=== PATIENT | female | born 1960 | race Caucasian/White ===

== ENCOUNTER 2016-10-07 20:02 | Emergency (ER) | payer OTHER ==
[~2016-10-07] VITALS: Ht 175.3 cm; Wt 69.0 kg
[~2016-10-07 20:02] MED LIST: ASPCH81X PO; ATOR10TA82 PO; FLM4 PO; LEVO50TA6 PO; LORA0.5T12 PO; MELO15TA4 PO; OXYC7.5T78 PO; PARO25TA PO
[2016-10-07 20:07] VITALS: TEMP 36.7; Ht 175.3 cm; Wt 69.0 kg
[2016-10-07] MEDS ORDERED: CYCL10TA6 PO (20:28)
[2016-10-07] MEDS ORDERED: TRAM-10 PO (20:28)
[2016-10-07] MEDS ORDERED: ONDANSETRON INJ 2 MG/ML 2 ML VIAL IV STA (20:37)
[2016-10-07] MEDS ORDERED: SODIUM CHLORIDE 0.9% 1000ML 1,000 ML IV STA (20:37)
[2016-10-07] MEDS ORDERED: KETOROLAC TROMETHAMINE 30 MG/ML VIAL IV STA (20:37)
[2016-10-07] MEDS ORDERED: MoRPHine SULFATE 4 MG/ML 1 ML CARP\\VIAL IV PRN (20:45)
[2016-10-07 21:10] LABS: HEMATOCRIT 42.9 % (37-47); MEAN CELL VOLUME 91.3 fL (80-100); MEAN CORPUSCULAR HEMOGLOBIN 31.9 pg (25-34); MEAN PLATELET VOLUME 11.2 fL (7.4-10.4); PLATELET COUNT 200 K/uL (130-400); WHITE BLOOD COUNT 8.37 K/uL (4.8-10.8)
[2016-10-07 21:26] LABS: URINE APPEARANCE CLEAR (CLEAR); URINE BILIRUBIN NEG (NEG); URINE COLOR DK YELLOW; URINE NITRITE NEG (NEG); URINE SPECIFIC GRAVITY 1.022 (1.000-1.030); UROBILINOGEN NEG (NEG); ZZUR CULT IF INDIC CLEAN CATCH NO
[2016-10-07 21:27] LABS: MANUAL MICROSCOPIC REQUIRED? NO; REVIEW REQ? NO
[2016-10-07 21:28] LABS: BASO % 0.4 %; BASO ABS # 0.03 K/uL (0-0.2); COMPLETE YES; EOS % 2.2 %; IG% 0.2 %; LYMPH % 39.4 %; MONO % 6.7 %; NEUT % 51.1 %
--- NOTE | 2016-10-07 21:31 | DIAGNOSTIC IMAGING REPORT ---
CHEST ONE VIEW PORTABLE HISTORY: FLANK PAIN/HEMATURIA COMPARISON: None. FINDINGS: Surgical clips within the thyroid bed. No focal lung consolidations to suggest pneumonia. No evidence for pulmonary edema. No pleural effusions. No pneumothorax. The heart is normal in size. IMPRESSION: No acute process. Electronically signed by: Albaro Ventura M.D. 10/07/2016 9:29 PM Dictated Date/Time: 10/07/2016 9:27 PM
[2016-10-07 21:37] LABS: ALT/SGPT 28 U/L (12-78); BLOOD UREA NITROGEN 20 mg/dl (7-18); BUN/CREATININE RATIO 24.4 (10-20); CALCIUM 8.5 mg/dl (8.5-10.1); CARBON DIOXIDE 27 mmol/L (21-32); CHLORIDE 106 mmol/L (98-107); GLUCOSE 98 mg/dl (70-99); POTASSIUM 3.9 mmol/L (3.5-5.1); SODIUM 142 mmol/L (136-145)
[2016-10-07 21:40] LABS: ALKALINE PHOSPHATASE 147 U/L (45-117); AST/SGOT 20 U/L (15-37)
--- NOTE | 2016-10-07 21:52 | DIAGNOSTIC IMAGING REPORT ---
ABDOMEN AND PELVIS CT WITHOUT CONTRAST CT DOSE: 993.05 mGy.cm HISTORY: Left flank pain TECHNIQUE: Multiaxial CT images of the abdomen and pelvis were performed without the use of intravenous and oral contrast according to the standard department stone protocol. COMPARISON STUDY: None. FINDINGS: Mild dependent changes seen at the lung bases. No fractures within the visualized osseous structures. Left superficial femoral artery stent. The unenhanced liver, spleen, adrenal glands, pancreas, and gallbladder are unremarkable. A 14 mm exophytic hypodense lesion within the upper pole the left kidney is incompletely characterize on this noncontrast study but favors a cyst. A 3.7 x 3.4 cm distal abdominal aortic aneurysm. The uterus and bilateral adnexa are within normal limits. There is also a 5 mm exophytic hypodense lesion within the upper pole the left kidney. No renal stones or hydronephrosis. The bladder is not well-distended but appears unremarkable. Suboptimal evaluation for bowel pathology due to the lack of intravenous and oral contrast. However, there is no definite bowel wall thickening or obstruction. Colonic diverticulosis. Normal appendix. IMPRESSION: 1. No renal stones or hydronephrosis. 2. No definite bowel wall thickening or obstruction. 3. Indeterminate left renal hypodense lesions on this noncontrast study. 4. A 3.7 x 3.4 cm distal abdominal aortic aneurysm. 5. Colonic diverticulosis. Electronically signed by: Albaro Ventura M.D. 10/07/2016 9:50 PM Dictated Date/Time: 10/07/2016 9:41 PM
[2016-10-07 22:49] VITALS: BP 133/88; PULSE 80; O2SAT 96
[2016-10-07] MEDS ORDERED: OXYC-57 PO (22:54)
--- NOTE | 2016-10-07 22:54 | EMERGENCY ROOM VISIT NOTE ---
History Report prepared by Etelvina: Wayne Booth Under the Supervision of: Dr. Emre Womack D.O. First contact with patient: 20:33 Chief Complaint: BACK PAIN Stated Complaint: BACK PAIN History of Present Illness The patient is a 55 year old female who presents to the Emergency Room with complaints of constant left sided back pain that started when she woke up this morning. She rates her pain a 10/10 in severity. This pain worsens with movement. The patient has a history of kidney stones. She denies recent falls or trauma. Source of History: patient Onset: This morning Position: back Symptom Intensity: 10/10 Timing: constant Modifying Factors (Worsening): movement Modifying Factors (Relieving): other (None) Review of Systems See HPI for pertinent positives & negatives. A total of 10 systems reviewed and were otherwise negative. Past Medical & Surgical Medical Problems: (1) AAA (abdominal aortic aneurysm) (2) delivery delivered (3) Kidney stone (4) Ovarian cyst Surgical Problems: (1) H/O unilateral oophorectomy (2) History of thyroidectomy Family History FH: diabetes mellitus FH: heart disease Kidney disease Kidney stones Social History Smoking Status: Current Every Day Smoker Alcohol Use: occasionally Housing Status: lives with family Occupation Status: unemployed Current/Historical Medications Scheduled Aspirin (Aspirin Chewable), 81 MG PO QPM Levothyroxine Sodium (Levothyroxine Sodium), 50 MCG PO QPM Lorazepam (Lorazepam), 0.5 MG PO QPM Paroxetine Hcl (Paxil Cr), 25 MG PO QPM Scheduled PRN Cyclobenzaprine Hcl (Flexeril), 10 MG PO HS PRN for Muscle Spasms Oxycodone/Acetaminophen 5MG/325MG (Percocet 5MG/325MG), 1 TAB PO Q6H PRN for Pain Tramadol (Ultram), 50 MG PO Q6 PRN for Pain Allergies Coded Allergies: Clopidogrel (Verified Allergy, Unknown, rash, 08/24/15) Physical Exam Vital Signs Date Time Temp Pulse Resp B/P Pulse Ox O2 Delivery O2 Flow Rate FiO2 10/07/16 22:49 80 16 133/88 96 Room Air 10/07/16 21:42 79 18 133/88 96 Room Air 10/07/16 20:07 36.7 88 19 112/82 98 Room Air Physical Exam CONSTITUTIONAL/VITAL SIGNS: Reviewed / noted above. GENERAL: Non-toxic in appearance. INTEGUMENTARY: Warm, dry, and [place]. HEAD: Normocephalic. EYES: without scleral icterus or trauma. ENT/OROPHARYNX: clear and moist. LYMPHADENOPATHY/NECK: Is supple without lymphadenopathy or meningismus. RESPIRATORY: Lungs clear and equal. CARDIOVASCULAR: Regular rate and rhythm. GI/ABDOMEN: Soft and nontender. No organomegaly or pulsatile mass. No rebound or guarding. Normal bowel sounds. EXTREMITIES: Warm and well perfused. BACK: Left CVA tenderness. Mild tenderness to palpation of left paraspinal musculature. Increased pain with sitting up. NEUROLOGICAL: Intact without focal deficits. PSYCHIATRIC: normal affect. MUSCULOSKELETAL: Normally developed with good muscle tone. Medical Decision & Procedures ER Provider Diagnostic Interpretation: Radiology results as stated below per my review and radiologist interpretation: CHEST ONE VIEW PORTABLE HISTORY: FLANK PAIN/HEMATURIA COMPARISON: None. FINDINGS: Surgical clips within the thyroid bed. No focal lung consolidations to suggest pneumonia. No evidence for pulmonary edema. No pleural effusions. No pneumothorax. The heart is normal in size. IMPRESSION: No acute process. Electronically signed by: Albaro Ventura M.D. 10/07/2016 9:29 PM Dictated Date/Time: 10/07/2016 9:27 PM A[address]OMEN AND PELVIS CT WITHOUT CONTRAST CT DOSE: 993.05 mGy.cm HISTORY: Left flank pain TECHNIQUE: Multiaxial CT images of the abdomen and pelvis were performed without the use of intravenous and oral contrast according to the standard department stone protocol. COMPARISON STUDY: None. FINDINGS: Mild dependent changes seen at the lung bases. No fractures within the visualized osseous structures. Left superficial femoral artery stent. The unenhanced liver, spleen, adrenal glands, pancreas, and gallbladder are unremarkable. A 14 mm exophytic hypodense lesion within the upper pole the left kidney is incompletely characterize on this noncontrast study but favors a cyst. A 3.7 x 3.4 cm distal abdominal aortic aneurysm. The uterus and bilateral adnexa are within normal limits. There is also a 5 mm exophytic hypodense lesion within the upper pole the left kidney. No renal stones or hydronephrosis. The bladder is not well-distended but appears unremarkable. Suboptimal evaluation for bowel pathology due to the lack of intravenous and oral contrast. However, there is no definite bowel wall thickening or obstruction. Colonic diverticulosis. Normal appendix. IMPRESSION: 1. No renal stones or hydronephrosis. 2. No definite bowel wall thickening or obstruction. 3. Indeterminate left renal hypodense lesions on this noncontrast study. 4. A 3.7 x 3.4 cm distal abdominal aortic aneurysm. 5. Colonic diverticulosis. Electronically signed by: Albaro Ventura M.D. 10/07/2016 9:50 PM Dictated Date/Time: 10/07/2016 9:41 PM Laboratory Results 10/07/16 21:01 Red Blood Count 4.70, Mean Corpuscular Volume 91.3, Mean Corpuscular Hemoglobin 31.9, Mean Corpuscular Hemoglobin Concent 35.0, Mean Platelet Volume 11.2, Neutrophils (%) (Auto) 51.1, Lymphocytes (%) (Auto) 39.4, Monocytes (%) (Auto) 6.7, Eosinophils (%) (Auto) 2.2, Basophils (%) (Auto) 0.4, Neutrophils # (Auto) 4.28, Lymphocytes # (Auto) 3.30, Monocytes # (Auto) 0.56, Eosinophils # (Auto) 0.18, Basophils # (Auto) 0.03 10/07/16 21:01 Test 10/07/16 20:17 10/07/16 21:01 Urine Color DK YELLOW Urine Appearance CLEAR (CLEAR) Urine pH 5.0 (4.5-7.5) Urine Specific [place] 1.022 (1.000-1.030) Urine Protein NEG (NEG) Urine Glucose (UA) NEG (NEG) Urine Ketones NEG (NEG) Urine Occult Blood NEG (NEG) Urine Nitrite NEG (NEG) Urine Bilirubin NEG (NEG) Urine Urobilinogen NEG (NEG) Urine Leukocyte Esterase NEG (NEG) Urine WBC (Auto) 1-5 /hpf (0-5) Urine RBC (Auto) 0-4 /hpf (0-4) Urine Hyaline Casts (Auto) 1-5 /lpf (0-5) Urine Epithelial Cells (Auto) 10-20 /lpf (0-5) Urine Bacteria (Auto) NEG (NEG) White Blood Count 8.37 K/uL (4.8-10.8) Red Blood Count 4.70 M/uL (4.2-5.4) Hemoglobin 15.0 g/dL (12.0-16.0) Hematocrit 42.9 % (37-47) Mean Corpuscular Volume 91.3 fL (80-100) Mean Corpuscular Hemoglobin 31.9 pg (25-34) Mean Corpuscular Hemoglobin Concent 35.0 g/dl (32-36) Platelet Count 200 K/uL (130-400) Mean Platelet Volume 11.2 fL (7.4-10.4) Neutrophils (%) (Auto) 51.1 % Lymphocytes (%) (Auto) 39.4 % Monocytes (%) (Auto) 6.7 % Eosinophils (%) (Auto) 2.2 % Basophils (%) (Auto) 0.4 % Neutrophils # (Auto) 4.28 K/uL (1.4-6.5) Lymphocytes # (Auto) 3.30 K/uL (1.2-3.4) Monocytes # (Auto) 0.56 K/uL (0.11-0.59) Eosinophils # (Auto) 0.18 K/uL (0-0.5) Basophils # (Auto) 0.03 K/uL (0-0.2) RDW Standard Deviation 43.3 fL (36.4-46.3) RDW Coefficient of Variation 13.0 % (11.5-14.5) Immature Granulocyte % (Auto) 0.2 % Immature Granulocyte # (Auto) 0.02 K/uL (0.00-0.02) Red Blood Cell Morphology Unremarkable Anion Gap 9.0 mmol/L (3-11) Est Creatinine Clear Calc Drug Dose 81.1 ml/min Estimated GFR () 94.9 Estimated GFR (Non- 81.8 BUN/Creatinine Ratio 24.4 (10-20) Calcium Level 8.5 mg/dl (8.5-10.1) Total Bilirubin 0.3 mg/dl (0.2-1) Direct Bilirubin < 0.1 mg/dl (0-0.2) Aspartate Amino Transf (AST/SGOT) 20 U/L (15-37) Alanine Aminotransferase (ALT/SGPT) 28 U/L (12-78) Alkaline Phosphatase 147 U/L (45-117) Total Protein 7.3 gm/dl (6.4-8.2) Albumin 3.8 gm/dl (3.4-5.0) Lipase 109 U/L (73-393) Laboratory results as stated above per my review. Medications Administered Medications (Trade) Dose Ordered Sig/Mary Route Start Time Stop Time Status Last Admin Dose Admin Sodium Chloride (Nss 1000ml) 1,000 ml @ 999 mls/hr Q1H1M STAT IV 10/07/16 20:37 10/07/16 21:37 DC 10/07/16 21:00 999 MLS/HR Ondansetron HCl (Zofran Inj) 4 mg NOW STAT IV 10/07/16 20:37 10/07/16 20:38 DC 10/07/16 21:01 4 MG Ketorolac Tromethamine (Toradol Inj) 30 mg NOW STAT IV 10/07/16 20:37 10/07/16 20:39 DC 10/07/16 21:01 30 MG Morphine Sulfate (MoRPHine SULFATE INJ) 4 mg Q15M PRN IV 10/07/16 20:45 10/07/16 23:31 DC 10/07/16 21:01 4 MG ED Course 2034: Previous medical records were reviewed. The patient was evaluated in room C11. A complete history and physical examination was performed. 2036: Ordered Toradol Injection 30 mg IV, Zofran Injection 4 mg IV, Sodium Chloride 1,000 ml @ 999 mls/hr IV. 2044: Ordered Morphine Sulfate 4 mg IV. 2258: On reevaluation, the patient is resting more comfortably. I discussed the results and findings with the patient. She verbalized agreement of the treatment plan. She was discharged home. Medical Decision Differential considered includes cauda equina syndrome, conus medullaris, spinal cord compression syndrome, peripheral nerve compression, fractures or subluxations, intra-abdominal pathology such as abdominal aortic aneurysm or kidney stones, muscle strain, transverse myelitis, spinal cord injury. This is a 55-year-old female who presents to the ED with a chief complaint of left-sided back pain. The patient developed symptoms earlier today. She states that she awoke with the pain. She denies any specific trauma. She does report a history of kidney stones. She has reported some increased urination. Her pain is worse with movement. Exam reveals some left CVA tenderness as well as some tenderness on palpation of the lumbar spinal musculature on the left. Abdomen soft and nontender. A CT scan of the abdomen and pelvis did not show any acute process. A chest x-ray was clear. CBC and complete metabolic panel were normal. Urine did not show infection. Lipase was negative. The patient was treated as above with IV morphine, Toradol and Zofran. She was given IV fluids. The patient was told the results of the test. She is felt to be stable for discharge. Her symptoms appear to be musculoskeletal. [place] Drug Monitoring Program Search Results: patient reviewed within database, no issues identified Impression Primary Impression: Back pain Scribe Attestation The scribe's documentation has been prepared under my direction and personally reviewed by me in its entirety. I confirm that the note above accurately reflects all work, treatment, procedures, and medical decision making performed by me. Departure Information Dispostion Home / Self-Care Prescriptions Oxycodone/Acetaminophen 5MG/325MG (PERCOCET 5MG/325MG) Tab 1 TAB PO Q6H Y for Pain, #20 TAB Prov: Emre Womack D.O. 10/07/16 Referrals Lisbet Acosta D.O. (PCP) Patient Instructions Low Back Pain Self Care, My [facility] Additional Instructions Percocet as prescribed. No driving within 6 hours of use. Do not take additional Tylenol while taking Percocet. Follow-up with your doctor for further care and evaluation in 1-2 days. Return to the emergency department for worsening or new symptoms or any concerns. You have been examined and treated today on an emergency basis only. This is not a substitute for, or an effort to provide, complete comprehensive medical care. It is impossible to recognize and treat all injuries or illnesses in a single emergency department visit. It is therefore important that you follow up closely with your doctor. Call as soon as possible for an appointment.
== END 2016-10-07 23:08 | disposition home or self-care (01) ==
LOC: C.EDB 20:03 → C.EDC 23:08
DX: M54.9 Dorsalgia, unspecified (principal); N83.209 Unspecified ovarian cyst, unspecified side; F17.200 Nicotine dependence, unspecified, uncomplicated; Z87.442 Personal history of urinary calculi; Z90.721 Acquired absence of ovaries, unilateral; Z98.890 Other specified postprocedural states; Z79.82 Long term (current) use of aspirin; Z79.899 Other long term (current) drug therapy; Z88.8 Allergy status to other drugs, medicaments and biological substances; Z83.3 Family history of diabetes mellitus; Z82.49 Family history of ischemic heart disease and other diseases of the circulatory system; Z84.1 Family history of disorders of kidney and ureter

== ENCOUNTER → 2016-12-18 | Outpatient (CLI) | payer OTHER ==
[~2016-12-18] MED LIST changes: -ATOR10TA82 PO; +CYCL10TA6 PO; -FLM4 PO; -MELO15TA4 PO; +OXYC-57 PO; -OXYC7.5T78 PO; +TRAM-10 PO
== END | disposition home or self-care (01) ==
LOC: C.PATHSPEC 11:50
PROVIDERS: ATTEND Obstetrics & Gynecology
DX: R87.612 Low grade squamous intraepithelial lesion on cytologic smear of cervix (LGSIL) (principal)

== ENCOUNTER → 2016-12-25 | Outpatient (CLI) | payer OTHER | END | disposition home or self-care (01) | LOC: C.PATHSPEC 10:40 | PROVIDERS: ATTEND Obstetrics & Gynecology | DX: R87.612 Low grade squamous intraepithelial lesion on cytologic smear of cervix (LGSIL) (principal) ==

== ENCOUNTER → 2017-04-09 | Outpatient (CLI) | payer OTHER ==
--- NOTE | 2017-04-10 13:41 | MAMMOGRAPHY REPORT ---
BILATERAL DIGITAL SCREENING MAMMOGRAM TOMOSYNTHESIS WITH CAD: 04/09/2017 CLINICAL HISTORY: Routine screening examination. TECHNIQUE: Breast tomosynthesis in addition to standard 2D mammography was performed. Current study was also evaluated with a Computer Aided Detection (CAD) system. COMPARISON: Comparison is made to exam dated: 02/13/2016 mammogram - [facility]. BREAST COMPOSITION: There are scattered areas of fibroglandular density in both breasts. FINDINGS: There is a stable benign circumscribed mass in the right upper outer quadrant. Diffuse dahlia ateral benign calcifications, and a stable biopsy marker clip in the medial left breast. No new susp icious mass, architectural distortion or cluster of microcalcifications is seen. IMPRESSION: ACR BI-RADS CATEGORY 1: NEGATIVE There is no mammographic evidence of malignancy. A 1 year screening mammogram is recommended. The pa tient will receive written notification of the results. Approximately 10% of breast cancers are not detected with mammography. A negative mammographic report should not delay biopsy if a clinically suggestive mass is present. Thea Hargrove M.D. ay/:04/09/2017 17:52:27 Triage Specialist: Kerry ROMERO(Renetta)(Jeny), [facility] letter sent: Normal 1/2 BI-RADS Code: ACR BI-RADS Category 1: Negative
== END | disposition home or self-care (01) ==
LOC: C.MAMM 07:23
PROVIDERS: ATTEND Student in an Organized Health Care Education/Training Program
DX: Z12.31 Encounter for screening mammogram for malignant neoplasm of breast (principal)

== ENCOUNTER → 2017-06-11 | Outpatient (CLI) | payer OTHER ==
[~2017-06-11] MED LIST changes: -OXYC-57 PO
== END | disposition home or self-care (01) ==
LOC: C.PAPS 14:51
PROVIDERS: ATTEND Obstetrics & Gynecology
DX: R87.612 Low grade squamous intraepithelial lesion on cytologic smear of cervix (LGSIL) (principal)

== ENCOUNTER → 2017-08-22 | Outpatient (CLI) | payer OTHER | END | disposition home or self-care (01) | LOC: C.PATHSPEC 11:49 | PROVIDERS: ATTEND Obstetrics & Gynecology | DX: R87.612 Low grade squamous intraepithelial lesion on cytologic smear of cervix (LGSIL) (principal) ==

== ENCOUNTER 2019-04-24 07:53 | Inpatient (IN) ==
--- NOTE | 2019-03-31 16:23 | PAT Medication Instructions ---
Medication Instructions Date of Service March 31, 2019 Home Medications carisoprodol 250 mg tablet 250 mg PO QPM ezetimibe 10 mg tablet 10 mg PO QPM levothyroxine 75 mcg tablet 75 mcg PO QPM lorazepam 0.5 mg tablet 0.5 mg PO HS PRN tramadol 50 mg tablet 50 mg PO DAILY PRN aspirin [Aspirin Low Dose] 81 mg PO QPM atorvastatin 40 mg PO PM metoprolol tartrate 25 mg PO QPM venlafaxine 37.5 mg PO QPM ASK your prescriber and surgeon aspirin [Aspirin Low Dose] 81 mg PO QPM Take morning of surgery With a small sip of water, OTHERWISE NOTHING TO EAT OR DRINK AFTER MIDNIGHT: lorazepam 0.5 mg tablet 0.5 mg PO HS PRN (if needed) tramadol 50 mg tablet 50 mg PO DAILY PRN (okay to take up to 4 hours prior to surgery if needed) Take evening before surgery carisoprodol 250 mg tablet 250 mg PO QPM ezetimibe 10 mg tablet 10 mg PO QPM levothyroxine 75 mcg tablet 75 mcg PO QPM lorazepam 0.5 mg tablet 0.5 mg PO HS PRN (if needed) tramadol 50 mg tablet 50 mg PO DAILY PRN (if needed) atorvastatin 40 mg PO PM metoprolol tartrate 25 mg PO QPM venlafaxine 37.5 mg PO QPM Other Notes If you have any questions please call us at [phone] or [phone] or [phone] or [phone]
--- NOTE | 2019-04-01 13:18 | Anesthesiology Consultation ---
Date of Service April 01, 2019 Assessment & Plan (1) Encounter for pre-operative examination: - ASA instructions per surgeon/prescriber Chart Review Chart Review: Pending: Refer to Additional Notes / Consult section (pending preop testing (labs, CXR)) and Patient seen in Pre Admission Testing Teaching & Discussion Pre-Anesthesia Teaching/Discussion Notes: Instructed NPO after midnight before surgery,except medications with 15 cc of water. Medication instructions provided according to the PAT guidelines. History Surgery Operation Date: 04/24/19 11:40 Proposed Procedures p Robotic Total Laparoscopic Hysterectomy - Louise Orozco MD, FACOG Height/Weight Height: 5 ft 9 in Weight: 77.7 kg Allergies Allergy/AdvReac Type Severity Reaction Status Date / Time clopidogrel Allergy Unknown rash Verified 04/01/19 10:55 Medications Home Medications Medication Instructions Recorded Confirmed Last Taken carisoprodol 250 mg tablet 250 mg PO QPM tab 01/26/19 04/01/19 Unknown ezetimibe 10 mg tablet 10 mg PO QPM tab 01/26/19 04/01/19 Unknown levothyroxine 75 mcg tablet 75 mcg PO QPM tab 01/26/19 04/01/19 Unknown lorazepam 0.5 mg tablet 0.5 mg PO HS PRN tab 01/26/19 04/01/19 Unknown tramadol 50 mg tablet 50 mg PO DAILY PRN tab 01/26/19 04/01/19 Unknown aspirin [Aspirin Low Dose] 81 mg PO QPM 03/27/19 04/01/19 Unknown atorvastatin 40 mg PO PM 03/27/19 04/01/19 Unknown metoprolol tartrate 25 mg PO QPM 03/27/19 04/01/19 Unknown venlafaxine 37.5 mg PO QPM 03/27/19 04/01/19 Unknown diphenhydramine 25 mg capsule 25 mg PO Q8H PRN 04/01/19 04/01/19 Unknown fluticasone propionate 50 1 sprays INTNAS DAILY 04/01/19 04/01/19 Unknown mcg/actuation nasal spray,suspension Past Medical History Medical History AAA (abdominal aortic aneurysm) stable at 4.6cm- monitoring by S surgery/under surveillance/no plan for surgical intervention at this time Anxiety Depression H/O varicose veins HPV in female History of arterial occlusion Left SFA stent (2013) History of kidney stones Hx of migraines Hyperlipidemia Hypothyroidism Exercise / Class Metabolic Activity II 4-5 Yardwork/Stairs/Walk up hill Past Family History Family History Grandmother (Maternal) Family history of diabetes mellitus Father Family history of diabetes mellitus Sister Family history of diabetes mellitus Other No pertinent family history Past Surgical History Surgical History History of X2 History of colonoscopy History of colposcopy with cervical biopsy 12/18/16; 08/22/17 History of ectopic X2 History of loop electrical excision procedure (LEEP) Hx of cystoscopy FOR STONE REMOVAL Hx of left breast biopsy Hx of ovarian cystectomy RIGHT Hx of partial thyroidectomy 90% REMOVAL Hx of tubal ligation Past Anesthesia History No Hx of Anesthesia Complications (except PONV x 1 episode) and No Family Hx of Anesthesia Complications History of PONV History of PONV (PONV x 1 episode) and Hx of Motion Sickness Social History Smoking Status: Current every day smoker tobacco type: cigarettes Smoking cigarettes per day: 10 cigarettes/day x 20+ years Do You Dip or Chew Tobacco: No Hx Alcohol Use: Yes alcohol intake frequency: holidays/special occasions only Hx Substance Use: No Review of Systems Patient denies chest pain, shortness of breath, dyspnea on exertion, reflux, cough, wheezing, palpitations. Physical Exam Vital Signs VITALS BP 108/72 P 56 TEMP 98.0 SP02 96%RA RESP 18 PHYSICAL Full neck and c-spine range of motion. Full TMJ range of motion. TMD 2.5 finger breaths Mallampati Score 3 Dentition: full dentures lower/upper; edentulous Lungs: clear throughout to auscultation Cardiac: regular rate and rhythm, no murmurs noted Spine: normal Carotid arteries: negative bruit Extremities: no edema Testing Electrocardiogram Date: 02/10/19 Findings: + SB @ (57) Echocardiogram Date: 08/03/15 EF 55-60%. No RWMA. Grade I DD. Mild MR. Mild RAD. Stress Test Date: 08/20/14 Type: exercise (+cardiolite) 86% MPHR. 10.4 METS. Negative stress EKG for exercise induced ischemic EKG. Normal myocardial perfusion without evidence of myocardial ischemia or scar.
--- NOTE | 2019-04-01 13:58 | XRay Report ---
XR chest Pre-admission PA/Lat CLINICAL HISTORY: 58 years-old Female presenting with preoperative assessment. TECHNIQUE: PA and lateral views of the chest were obtained. COMPARISON: 10/07/2016. FINDINGS: Atherosclerosis of the aortic arch. Cardiac silhouette normal in size. Lungs and pleural spaces clear . Osseous structures normal. Surgical clips project over the base of the neck. Upper abdomen normal. IMPRESSION: 1. No acute cardiopulmonary disease. Electronically signed by: Efrain Weber M.D. 04/01/2019 1:56 PM
[2019-04-01 15:42] LABS: Basophils # (auto) 0.06 K/uL (0-0.2); Basophils % (auto) 0.8 %; Eosinophils # (auto) 0.15 K/uL (0-0.5); Eosinophils % (auto) 1.9 %; Hemoglobin 15.4 g/dL (12.0-16.0); Immature Granulocytes # (auto) 0.02 K/uL (0.00-0.02); Immature Granulocytes % (auto) 0.3 %; Lymphocytes # (auto) 2.94 K/uL (1.2-3.4); Lymphocytes % (auto) 37.4 %; Mean Corpuscular Hemoglobin 31.6 pg (25-34); Mean Corpuscular Hgb Conc 33.5 g/dL (32-36); Mean Corpuscular Volume 94.3 fL (80-100); Mean Platelet Volume 11.4 fL (7.4-10.4); Monocytes % (auto) 6.4 %; Neutrophils % (auto) 53.2 %; Platelet Count 226 K/uL (130-400); RDW Coefficient of Variation 13.6 % (11.5-14.5); RDW Standard Deviation 46.9 fL (36.4-46.3); Red Blood Count 4.88 M/uL (4.2-5.4); White Blood Count 7.87 K/uL (4.8-10.8)
[2019-04-01 15:50] LABS: Calcium 9.4 mg/dl (8.5-10.1); Creatinine Clr Calc Pharmacy 64.5 ml/min; Est GFR (African American) 73.6; Est GFR (Non-African American) 63.5; Potassium 4.3 mmol/L (3.5-5.1)
[~2019-04-24 07:53] MED LIST changes: -ASPCH81X PO; +CEFAZOLIN 2000MG 2,000 MG/15 ML SYR IV SCH; -CYCL10TA6 PO; +LACTATED RINGER'S 1,000 ML IV SCH; -LEVO50TA6 PO; -LORA0.5T12 PO; +LR 15ML/HR IV SCH; -PARO25TA PO; -TRAM-10 PO
[2019-04-24] MEDS ORDERED: fentaNYL citrate 100 MCG/2 ML VIAL ONE ×2 (08:59→23:55)
[2019-04-24] MEDS ORDERED: MIDAZOLAM HCL 1 MG/ML 2ML VIAL ONE ×3 (08:59→23:55)
--- NOTE | 2019-04-24 09:30 | History & Physical Bridge Note ---
Date of Service April 24, 2019 History & Physical Bridge Note I have examined the patient, reviewed the History & Physical and in the interval since the performance of the History & Physical I have noted the following changes of clinical significance: no changes noted
[2019-04-24] MEDS ORDERED: PROMETHAZINE HCL 12.5 MG in SODIUM CHLORIDE 0.9% 50 ML IV PRN ×2 (09:38→16:54)
[2019-04-24] MEDS ORDERED: ATROPINE SULFATE 0.1 MG/ML 10ML SYR IV PRN (09:38)
[2019-04-24] MEDS ORDERED: LABETALOL HCL IV 5 MG/ML 20ML IV PRN (09:38)
[2019-04-24] MEDS ORDERED: ONDANSETRON INJ 2 MG/ML 2 ML VIAL IV PRN ×2 (09:38→16:54)
[2019-04-24] MEDS ORDERED: ePHEDrine sulfate 50 MG/ML AMP IV PRN (09:38)
[2019-04-24] MEDS ORDERED: FLUMAZENIL 0.1 MG/1 ML 10 ML VIAL IV PRN (09:38)
[2019-04-24] MEDS ORDERED: HYDROmorphone INJ 1 MG/ML SYRINGE IV PRN ×2 (09:38→16:04)
[2019-04-24] MEDS ORDERED: NALOXONE HCL 0.4 MG/1 ML VIAL/CARP IV PRN (09:38)
[2019-04-24] MEDS ORDERED: BUPIVACAINE 0.5 % 5 MG/1 ML MPF 30ML VIAL ONE (10:13)
[2019-04-24] MEDS ORDERED: HYDROmorphone INJ 2 MG/ML SYR/VIAL ONE (10:28)
[2019-04-24] MEDS ORDERED: GLYCOPYRROLATE 0.2 MG/ML VIAL ONE (10:28)
[2019-04-24] MEDS ORDERED: NEOSTIGMINE METHYLSULFATE 5 MG/5 ML SYR ONE (10:28)
[2019-04-24] MEDS ORDERED: ONDANSETRON INJ 2 MG/ML 2 ML VIAL ONE ×2 (10:28→14:44)
[2019-04-24] MEDS ORDERED: ePHEDrine sulfate 50 MG/ML SYR ONE (10:28)
[2019-04-24] MEDS ORDERED: LIDOCAINE HCL 2% 2 ML VIAL/AMP(20MG/ML) INFIL ONE (10:28)
[2019-04-24] MEDS ORDERED: PHENYLEPHRINE 100MCG/ML 5ML SYR ONE (10:28)
[2019-04-24] MEDS ORDERED: ROCURONIUM BROMIDE 10 MG/ML 5 ML VIAL ONE ×5 (10:28→13:40)
[2019-04-24] MEDS ORDERED: DEXAMETHASONE SOD INJ 4 MG/ML VIAL ONE (10:28)
[2019-04-24] MEDS ORDERED: PROPOFOL IV EMULSION 10 MG/ML 20 ML VIAL IV ONE (10:28)
[2019-04-24] MEDS ORDERED: ACETAMINOPHEN 1000 MG/100 ML IV IV ONE (10:35)
[2019-04-24] MEDS ORDERED: METHYLENE BLUE 0.5% 10 ML VIAL ONE (10:35)
[2019-04-24] MEDS ORDERED: TISSEEL FIBRIN SEALANT 10ML TOP ONE (13:25)
[2019-04-24] MEDS ORDERED: CEFAZOLIN 250 MG/ML 1 GM VIAL ONE (13:51)
--- NOTE | 2019-04-24 14:34 | Operative Report ---
DATE OF OPERATION: 04/24/2019 PREOPERATIVE DIAGNOSIS: Multiple intra-abdominal adhesions. POSTOPERATIVE DIAGNOSIS: Multiple intra-abdominal adhesions. PROCEDURE: Laparoscopic lysis of multiple adhesions. SURGEON: Henry Ferraro MD PORTABLE TRACK CREW CHIEF: Singh Orozco. FINDINGS: I was asked for intraoperative consultation and help with lysing multiple intraabdominal adhesions in order to facilitate a hysterectomy. The patient had thickened adhesions of the small bowel and of the omentum to the anterior abdominal wall in the midline and to the left and right of the pelvic rim. There were also dense adhesions of the sigmoid colon to the left adnexa as well as small bowel adhesions to the dome of the uterine fundus. There were also some adhesions posterior to the uterus of the fatty and lateral aspect of the rectum. TECHNIQUE: Laparoscopic access to the abdomen was obtained by Dr. Orozco and will be dictated by him. We did place 1 additional port just to the left of the midline port and this was a 12 mm port placed under direct vision. I began at the superior most aspect of the adhesions and carefully peeled them away. With division of adhesions, this was done bluntly and sharply. With division of each adhesion, I had exposed additional planes for safe dissection. Once we had the small bowel off the midline of the mid portion of the lower abdomen, it was clear that we had dissected somewhat into the preperitoneal space as well. The peritoneum was elevated and this exposed additional adhesions of small bowel which were more flimsy and taken down with relative ease. Once they were taken down, the adhesions in the pelvis became obvious. Beginning towards the patient's left side of her uterus towards the adnexa, there was a plane that was able to be established between the small bowel and the uterine fundus and then I worked from left to right, dividing adhesions to the fundus and then to the posterior aspect of the fundus of the uterus. Some of these adhesions were tight and required millimeter by millimeter transection, but the small bowel wall could be visualized at all times and I do not feel that any time it was compromised. The dissection was careful and slow until that loop of small bowel was dissected away. I then worked over towards the right adnexa and the adhesions there were more flimsy and taken down with ease. That allowed me to then elevate and place right-sided traction on the left round ligament and infundibulopelvic ligament. On the posterior aspect of the infundibulopelvic ligament, the sigmoid colon was adherent. At some areas, these were also tight thick adhesions and that dissection was again millimeter by millimeter until I could get it completely freed. That allowed me then to work towards the pelvis and elevate the junction between the cervix and the fundus. On the posterior wall, there were adhesions of the fat on the lateral aspect of the rectum towards the right side and there were also some towards the left side. The actual wall of the rectum did not appear to be adherent. I was able to establish a plane on the peritoneum and I was able to dissect the bowel and the lateral fat away such that it was completely freed down to the cervix. At this point, the uterus was completely exposed and adhesions were lysed adequately to allow for hysterectomy. The remainder of the procedure will be dictated by Dr. Orozco. I attest to the content of the Intraoperative Record and any orders documented therein. Any exception s are noted below.
--- NOTE | 2019-04-24 14:55 | Operative Report ---
PG Post Operative Report Pre & Post Diagnosis Operation Date: 04/24/19 09:20 Pre-Op Diagnosis: Intraoperative bladder injury Post-Op Diagnosis: Same Anesthesia: General anesthesia with endotracheal intubation. EBL for this portion of the case: Minimal. Drains left in place: Ramos catheter to gravity drainage. Findings: Pinpoint vesicotomy at the dome closed in 2 layers. Areas of thinning of the detrusor reinforced with a single layer. Watertight closure on int raoperative testing with greater than 150 cc of sterile irrigant. I identified the patient and participated in the time-out.: Yes Procedure Operation Date: 04/24/19 09:20 Actual Procedures: Robotic assisted laparoscopic repair of Iatrogenic intraoperative vesicotomy Brief history: Consulted intraoperatively for a recognized bladder injury at the dome over the course of a difficult dissection with significant intra-abdominal adhesions. Primary surgeon is completed their portion of the case including hysterectomy and by portion of the case is performed via the robotic consult. Sterile irrigant was placed into the bladder via the intraoperative sterile Ramos and a small vesicotomy at the dome of the bladder with some thinning of the detrusor was appreciated. This was closed in a [id number] fashion using 3-0 Vicryl on SH needle on the deep aspects of the bladder and mucosa and a 2-0 Vicryl in a Lembert style closure of the external detrusor musculature. After this was complete the bladder was retested and noted to be watertight. However, several other areas of detrusor thinning were appreciated consistent with the patient's difficult intraoperative dissection. These were reinforced with closure of the external detrusor musculature and, on the intra-abdominal portion, the serosa of the detrusor using 2-0 Vicryl suture in a running fashion. After this was complete the bladder was retested and excellent appearance of the detrusor musculature with no areas of thinning or bulging was appreciated. Bladder was drained and catheter was placed to gravity drainage. Seen that the only true intravesical injury was pinpoint on complete inspection of the bladder both posterior and anterior a CHRISTOPHER drain was not felt to be necessary in the postoperative period. Case was returned to the primary surgeon at this point. Follow-up CARE: We will arrange for an outpatient cystogram and trial of void in 7 to 10 days. Patient be discharged home with Ramos catheter in place and leg bag training. Family not present physically in the waiting room but findings and events have been discussed by primary surgeon with family. Will see the patient tomorrow morning to review the intraoperative findings. Surgeon Flo Mendoza MD Well Drill Operator Helper Cable Tool present in case for passage of instruments, retraction of tissues, suction, irrigation of bladder and general patient safety. Well Drill Operator Helper Cable Tool Dr. Cassia Orozco. Estimated Blood Loss 50 Findings Consistent with Post-Op Diagnosis Specimens None for this portion of the case Description of Procedure Robot-assisted laparoscopic repair of iatrogenic intraoperative vesicotomy. I attest to the content of the Intraoperative Record and any orders documented therein. Any exceptions are noted below.
[2019-04-24] MEDS ORDERED: HYDROmorphone INJ 1 MG/ML SYRINGE ONE (15:16)
--- NOTE | 2019-04-24 15:21 | Operative Report ---
PG Post Operative Report Pre & Post Diagnosis Operation Date: 04/24/19 09:20 Pre-Op Diagnosis: High Grade Squamous Intraepithelial Lesion Post-Op Diagnosis: High Grade Squamous Intraepithelial Lesion I identified the patient and participated in the time-out.: Yes Procedure Operation Date: 04/24/19 09:20 Actual Procedures p Robotic Total Laparoscopic Hysterectomy, Left Salpingectomy, Extensive Lysis of Adhesions, Cystoscopy, Robotic laparoscopic assisted repair of Iatrogenic vesicotomy - Louise Orozco MD, FACOG Surgeon Louise Orozco MD, FACOG Site Supervisor Dr. Cassia Orozco. Estimated Blood Loss 50 Findings Consistent with Post-Op Diagnosis Specimens uterus, cervix Description of Procedure Brief clinical note discussed with the patient she has had multiple laparotomies in the known history of adhesions we discussed that we were trying to do this laparoscopically but we discussed increased risks including possible conversion to laparotomy and increased risks of internal organ injury if there was significant adhesions Patient was taken back to the operating room given preoperative antibiotics bladder drained with a Ramos catheter we attempted to place a V care manipulating device however her cervix was so stenotic and deformed from previous procedures I was unable to do this. Instead we perform laparoscopy first this was done first by changing gloves making a supraumbilical umbilical incision and using Duvall cutdown technique we entered the abdomen bluntly and blunt-tipped Duvall trocar then placed into the peritoneal cavity Findings massive adhesions of the anterior abdominal wall and small bowel to the anterior abdomen bladder and uterus visualization of the uterus was very difficult until approximately our 2 of the case. 2 laparoscopic incisions made on the right side of the patient and 2 on the left to allow port placement I did contact Dr. Ferraro from general surgery for assistance with adhesions due to the dense nature of these and also the bowel approximately and we worked together there was use of harmonic scalpel and Dr. Ferraro carefully lysed adhesions he has a separate operative note for this. The adhesions also were densely against the back wall of the uterus and the left and right pelvic sidewalls. Once the adhesions were fully dissected away we did notice that there was some blood in the Ramos catheter bag because of this I elected to perform cystoscopy . At this stage we called urology I discussed the case they decided that it would be best since the uterus was now visualize if I completed hysterectomy and afterwards they would fix the bladder. At this stage I was unable to use a V care we had tried but I could not place it into the uterine cavity so we used the sponge on a stick to identify the anterior vaginal fornix at this stage we identified the utero-ovarian blood supply in the left side she was to keep her left ovary which appeared normal coagulated this blood supply with the bipolar [place] using this robotically at this stage. And then cut this with monopolar cristina per same process with the round ligament uterine vessels were then skeletonized I was able to develop the bladder flap away sharply. Identify the uterine vessels on the left side these were coagulated then cut staying medial to the uterus. The exact same process was continued on the right side once I have fully dissected the bladder away made an anterior colpotomy identifying the sponge and the continuing the colpotomy to ensure all cervix removed. Uterus was then pulled through the vagina and removed and a sponge and a glove was placed for pneumoperitoneum. We did an instrument exchange arm #1 became the Carlos needle van driver helper arm #2 became the [employer] grasper 2 oh 90-day V lock suture was then placed the excess report cuff was closed from left to right with at least 1 cm full-thickness bites of vaginal tissue was somewhat thin but we try to ensure the best possible closure suture was cut so there was no tail needle removed for the excess report glove and a sponge removed and seal was airtight hemostasis was excellent. Dr. Mendoza from urology then repaired the bladder cystotomy operative note provided by him After generous irrigation and suction hemostasis was excellent I did probe placed to seal on the pedicles for hemostasis. Gas allowed to escape robotic instruments removed robot undocked incisions injected with 0.5% Marcaine fascia closed carefully with 0 Vicryl in the umbilical incision and left upper quadrant incision 4 oh septic or Monocryl closures and Dermabond applied. Urine was draining at the end of the procedure and there was no vaginal bleeding noted procedure sponge and instrument counts were correct Note this case was incredibly complex with the density and amount of adhesions and distortion of her cervix the entire case part took approximately 5 hours note also at our 4 we gave a second dose of antibiotics Ancef 2 g I attest to the content of the Intraoperative Record and any orders documented therein. Any exceptions are noted below.
--- NOTE | 2019-04-24 15:37 | Gynecologic Progress Note ---
Date of Service Note, I did speak directly with the patient immediately after surgery and explained the cystotomy and how it was fixed and would be managed. April 24, 2019 Results & Data Vital Signs (Past 12 Hours) Vital Signs Temp Pulse Pulse Resp BP Pulse Ox 04/24/19 15:25 98.2 F 67 19 133/76 96 04/24/19 15:15 98.2 F 67 19 123/73 98 04/24/19 15:06 98.2 F 73 16 114/70 100 04/24/19 08:43 97.7 F 64 18 121/87 64 L PG Care Time/CCT Total # of Minutes Spent Total Time Spent with Patient: Total time spent is greater than 50% in coordination of care (as documented) at patient's floor/unit and/or counseling patient:
[2019-04-24] MEDS ORDERED: KETOROLAC 30 MG/ML VIAL IV PRN ×2 (16:02→16:54)
[2019-04-24] MEDS ORDERED: KETOROLAC 30 MG/ML VIAL ONE (16:05)
--- NOTE | 2019-04-24 16:27 | Anesthesiology Progress Note ---
Date of Service April 24, 2019 Anesthesia Post Procedure Vital Signs Vital Signs: Temp Pulse Pulse Resp BP Pulse Ox 04/24/19 16:05 36.6 C 72 16 99/64 L 92 04/24/19 15:55 36.8 C 72 18 94/64 L 93 04/24/19 15:45 36.8 C 78 13 98/71 L 99 04/24/19 15:35 36.8 C 74 12 129/67 92 04/24/19 15:25 36.8 C 67 19 133/76 96 04/24/19 15:15 36.8 C 67 19 123/73 98 04/24/19 15:06 36.8 C 73 16 114/70 100 04/24/19 08:43 36.5 C 64 18 121/87 64 L Pain Intensity Abdomen: Pain Intensity: 5 Transfer of Care Handoff Completed per policy Notes Mental Status: alert / awake / arousable Patient Amnestic to Procedure: Yes Nausea / Vomiting: adequately controlled Pain: adequately controlled Airway Patency, RR, SpO2: stable & adequate BP & HR: stable & adequate Hydration State: stable & adequate Anesthetic Complications: no major complications apparent
[2019-04-24] MEDS ORDERED: SIMETHICONE 80 MG CHEW PO PRN (16:54)
[2019-04-24] MEDS ORDERED: IBUPROFEN 600 MG TAB PO PRN (16:54)
[2019-04-24] MEDS ORDERED: ZOLPIDEM TARTRATE 5 MG TAB PO PRN (16:54)
[2019-04-24] MEDS ORDERED: MAGNESIUM HYDROXIDE SUSP 30 ML UDC PO PRN (16:54)
[2019-04-24] MEDS ORDERED: LORazepam 0.5 MG TAB PO PRN (16:54)
[2019-04-24] MEDS ORDERED: MEPERIDINE HCL 50 MG/ML CARP IV PRN (16:54)
[2019-04-24] MEDS ORDERED: BISACODYL 10 MG SUPP PR PRN (16:54)
[2019-04-24] MEDS ORDERED: OXYCODONE/ACETAMINOPHEN 5mg/325mg TAB PO PRN ×2 (16:54)
[2019-04-24] MEDS ORDERED: ACETAMINOPHEN 325 MG TAB PO PRN (16:54)
[2019-04-24] MEDS ORDERED: PROMETHAZINE HCL 25 MG in SODIUM CHLORIDE 0.9% 50 ML IV PRN (16:54)
[2019-04-24] MEDS: LACTATED RINGER'S 1,000 ML IV SCH (17:04)
[2019-04-24 20:09] LABS: Hematocrit (blood only) 44.3 % (37-47); Hemoglobin 14.6 g/dL (12.0-16.0)
--- NOTE | 2019-04-24 20:15 | Gynecologic Progress Note ---
Date of Service April 24, 2019 Assessment & Plan (1) Chest pain: -Physical examination fairly unremarkable -Stable O2 saturation on 2 L -Patient is worried that this could be lead generation representative of a cardiac event. -Patient has had multiple medical problems in the past -Discussed the case with Dr. Pooja Glass, [facility] [place] -She requests that I order a stat EKG and troponin -Dr. Glass will see the patient in consultation. Subjective The patient is a 58-year-old postmenopausal female status post total laparoscopic hysterectomy with intraoperative cystotomy incision and repair, with extensive adhesio lysis lasting 5 hours. The patient is complaining of right anterior chest pain. She states that the pain comes and goes up. When the pain is at its worst it is a 10 out of 10. Patient denies any shortness of breath. She denies any nausea or vomiting. Physical Exam Constitutional: WD/WN, vitals as above Respiratory: Auscultation: lungs clear to auscultation bilaterally Cardiovascular: RRR, no murmur, no edema Extremities: no calf tenderness Results & Data Vital Signs (Past 12 Hours) Vital Signs Temp Pulse Pulse Resp BP Pulse Ox 04/24/19 18:30 97.9 F 90 17 97/71 L 94 04/24/19 17:30 97.7 F 67 18 96/55 L 93 04/24/19 17:10 97.3 F L 75 18 109/69 95 04/24/19 16:40 97.9 F 99 H 18 113/69 95 04/24/19 16:25 97.9 F 80 15 123/69 96 04/24/19 16:15 97.9 F 76 11 L 123/75 94 04/24/19 16:05 97.9 F 72 16 99/64 L 92 04/24/19 15:55 98.2 F 72 18 94/64 L 93 04/24/19 15:45 98.2 F 78 13 98/71 L 99 04/24/19 15:35 98.2 F 74 12 129/67 92 04/24/19 15:25 98.2 F 67 19 133/76 96 04/24/19 15:15 98.2 F 67 19 123/73 98 04/24/19 15:06 98.2 F 73 16 114/70 100 04/24/19 08:43 97.7 F 64 18 121/87 64 L PG Care Time/CCT Total # of Minutes Spent Total Time Spent with Patient: Total time spent is greater than 50% in coordination of care (as documented) at patient's floor/unit and/or counseling patient:
[2019-04-24] MEDS ORDERED: METOPROLOL TARTRATE 25 MG TAB PO SCH (21:00)
[2019-04-24 21:20] LABS: Albumin Level 3.4 gm/dl (3.4-5.0); Calcium 8.3 mg/dl (8.5-10.1); Est GFR (African American) 66.1; Magnesium 1.9 mg/dl (1.8-2.4); Partial Thromboplastin Ratio 0.9; Partial Thromboplastin Time 25.6 Seconds (21.0-31.0); Potassium 4.5 mmol/L (3.5-5.1)
[2019-04-24 21:23] LABS: Bilirubin,Total 0.3 mg/dl (0.2-1); Globulin 3.3 gm/dl (2.5-4.0); Total Protein 6.7 gm/dl (6.4-8.2)
[2019-04-24] MEDS ORDERED: ASPIRIN 81 MG CHEW PO STA (21:42)
[2019-04-24] MEDS ORDERED: HEPARIN SODIUM/DEXTROSE 25,000 UNITS/500 ML BAG IV SCH (21:45)
[2019-04-24] MEDS ORDERED: SODIUM CHLORIDE 0.9% 1000ML 1,000 ML IV SCH (21:45)
[2019-04-24] MEDS ORDERED: NITROGLYCERIN SL 0.4 MG/TAB TAB ONE (21:47)
--- NOTE | 2019-04-24 22:07 | Hospitalist Consultation ---
Date of Consultation April 24, 2019 Assessment & Plan (1) STEMI (ST elevation myocardial infarction): This is a 58-year-old female with a PMH of AAA, PVD s/p left SFA stenting in 2013, tobacco use disorder, dyslipidemia and other medical problems listed below who is POD#0 s/p robotic total laparoscopic hysterectomy, left salpingectomy, extensive lysis of adhesions by Dr. Orozco who developed postoperative chest pain and was found to have an inferior wall STEMI. -Post op shoulder pain migrated to central 10/10 chest pain with associated nausea -Patient with significant family history of premature CAD, lifelong smoker -EKG revealed acute ST elevations in inferior leads. Initial troponin elevated at 2.8. CXR without acute abnormalities -Discussed with Dr. Trejo and CODE HEART ALERT was called -Patient transferred to ICU and discussed with turkey roll maker ALTAF (2) S/P hysterectomy with oophorectomy: POD#0 s/p robotic total laparoscopic hysterectomy, left salpingectomy, extensive lysis of adhesions by Dr. Orozco -Mgmt per obgyn (3) AAA (abdominal aortic aneurysm): Follows with Dr. Acosta for 4 cm AAA -diameter increased from 3.5 cm one year ago -Abdominal aortic duplex report 12/2018: There is evidence of a 4.0 centimeter abdominal aortic aneurysm. Color Doppler imaging demonstrates flow consistent with a patent lumen at and distal to the aortic aneurysm. (4) PVD (peripheral vascular disease): Peripheral vascular disease with history of left SFA stenting 05/2014 with angioplasty for restenosis in 2014 while living in [place], [place] Code status: FULL PCP: Misha Acosta Patient seen in collaboration with Dr. Trotter. Please see addendum. Supervising Physician Co-Signing Physician Notes I saw this patient with the physician reading assistant, I participated in the history, physical, review of systems, and physical exam. I reviewed the medications with the patient and the physician reading assistant and helped reconcile the medications. I helped take a detailed family and social history as well. I formulated the assessment and plan personally with the physician reading assistant and went over it with the patient. +acute inf/lat STEMI-Heart alert iniyiated, 1 hour of cc time ROS-No Headache, No Visual Changes, No Nausea, No Vomiting, No Fever, No Chills, No Neck Pain or Stiffness, +10/10 Chest Pain Across Anterior Chest, No Palpitations, No SOB, No MILAN, No Cough, No Sputum, No Wheezing, No Abdominal Pain, No Diarrhea, No Hematemesis, No Hemoptysis, No Unexpected Weight Loss, No Flank pain, No Melena, No Hematochezia, No Frequency, No Urgency, No Burning, No Hematuria, No Rashes, No Diaphoresis. Appetite is Normal Physical Exam Gen-AAO x 3, NAD, Afebrile Head-NCAT, EOMI, PERRLA, Anicteric Sclera, No Posterior Pharyngeal Erythema Neck-Supple, No JVD, No Thyromegaly, No Masses, No LAD, No Bruits Lungs-Clear to Auscultation Bilaterally, No Rales, No Rhonchi, No Wheezing, No Crepitus Chest-No S4, +S1, +S2, No S3, No Murmurs, No Rubs, No Gallops, No Ectopy Abdomen-Soft, Bowel Sounds Present, Non Tender, Non Distended, No Hepatomegaly, No Splenomegaly, No Palpable Masses, No Rebound, No Rigidity, No Guarding Musculoskeletal-Full Range of Motion Bilaterally, No CVAT Extremities-No Cyanosis, No Clubbing, No Edema Nuero-Cranial Nerves II-XII grossly intact, Motor WNL, DTRs WNL, Strength WNL, Non Focal Psych-Normal Mood History of Present Illness Reason for Consultation: Chest pain Attending Physician: Louise Orozco MD, FACOG History of Present Illness This is a 58-year-old female with a PMH of AAA, PVD s/p left SFA stenting in 2013, tobacco use disorder, dyslipidemia and other medical problems listed below who is POD#0 s/p robotic total laparoscopic hysterectomy, left salpingectomy, extensive lysis of adhesions by Dr. Orozco who developed postoperative chest pain. Following procedure, patient expressed that she had right shoulder pain that was attributed to the surgery. Was later evaluated by CONTROL OFFICER MANAGER when chest pain moved from right side of chest to center. Describes pain as 10 out of 10 heaviness with some radiation to left shoulder. Associated with nausea but denies diaphoresis, shortness of breath or vomiting. Patient states she also had some chest pain yesterday after exercise that resolved with rest. Denies any personal history of CAD but significant family history of premature CAD with Mom having IN in 50s and brother in his 30s. Follows with Dr. Acosta for 4 cm AAA -diameter increased from 3.5 cm one year ago. Significant smoking history since age 13. Has cut down to half a pack per day. Vital signs stable. Dr. Hooper evaluated patient for chest pain this evening and discussed with medicine service, who suggested stat troponin and EKG. EKG revealed acute ST elevations in inferior leads. Initial troponin elevated at 2.8. Discussed with Dr. Trejo and initiated heart alert. Currently, patient still experiencing, 10 chest pain. Some incisional discomfort on abdomen. Saturating at 98% on 2 L nasal cannula. Denies any lightheadedness, visual changes, near syncope, palpitations, shortness of breath or vomiting. Urinary catheter in place. Allergies Allergy/AdvReac Type Severity Reaction Status Date / Time clopidogrel Allergy Intermediate rash Verified 04/24/19 08:36 Home Medications Home Medications Medication Instructions Recorded Confirmed Type ezetimibe 10 mg tablet 10 mg PO QPM tab 01/26/19 04/24/19 History levothyroxine 75 mcg tablet 75 mcg PO QPM tab 01/26/19 04/24/19 History lorazepam 0.5 mg tablet 0.5 mg PO HS PRN tab 01/26/19 04/24/19 History aspirin [Aspirin Low Dose] 81 mg PO QPM 03/27/19 04/24/19 History atorvastatin 40 mg PO PM 03/27/19 04/24/19 History metoprolol tartrate 25 mg PO QPM 03/27/19 04/24/19 History venlafaxine 37.5 mg PO QPM 03/27/19 04/24/19 History diphenhydramine 25 mg capsule 25 mg PO Q8H PRN 04/01/19 04/24/19 History fluticasone propionate 50 1 sprays INTNAS DAILY 04/01/19 04/24/19 History mcg/actuation nasal spray,suspension oxycodone-acetaminophen 5 mg-325 1 tab PO TID PRN #10 tab 04/01/19 04/24/19 Rx mg tablet carisoprodol [Soma] 350 mg PO QID 04/24/19 04/24/19 History Patient History Medical History AAA (abdominal aortic aneurysm) (Chronic) stable at 4.6cm- monitoring by [facility] surgery/under surveillance/no plan for surgical intervention at this time AAA (abdominal aortic aneurysm) without rupture (Chronic) Anxiety (Chronic) Depression (Chronic) H/O varicose veins (Chronic) 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) History of arterial occlusion (Chronic) Left SFA stent (2014) History of kidney stones (Chronic) Hyperlipidemia (Chronic) Hypothyroidism (Chronic) Surgical History History of (Chronic) X2 History of ectopic (Chronic) X2 Hx of cystoscopy (Chronic) FOR STONE REMOVAL Hx of left breast biopsy (Chronic) Hx of ovarian cystectomy (Chronic) RIGHT Hx of partial thyroidectomy (Chronic) 90% REMOVAL Hx of tubal ligation (Chronic) History of colposcopy with cervical biopsy (Chronic) 12/18/16; 08/22/17 History of loop electrical excision procedure (LEEP) (Chronic) Family History Grandmother (Maternal) Family history of diabetes mellitus Father Family history of diabetes mellitus Sister Family history of diabetes mellitus Mother Myocardial infarction Brother Myocardial infarction Social History Preferred Language: Belarusian Communication Ability: Effective Beliefs That Will Affect Care: None Current Living Situation: Alone Feels Safe at Home: Yes Smoking Status: Current every day smoker Tobacco Type: cigarettes ; Age Started Using Tobacco: 13 ; packs per day: 0.5 ; Cigarettes Per Day: 10 cigarettes/day x 20+ years ; Do You Dip or Chew Tobacco: No ; Second Hand Exposure: No ; Hx Alcohol Use: Yes Hx Substance Use: No Review of Systems Review of Systems: At least ten systems reviewed and negative except as noted in the HPI. Physical Exam Physical Exam: General Appearance: WD/WN, vitals as above, NAD, sitting up in bed, conversing easily, + anxious Head: normocephalic, atraumatic Eyes: normal inspection, PERRL, conjunctivae normal, anicteric sclerae ENT: external ear and nose normal, oropharynx normal Neck: trachea midline, no thyromegaly normal visual inspection Respiratory: normal respiratory effort, lungs clear to auscultation, no wheeze, rales, rhonchi. Normal insp/exp effort, no accessory muscle use Cardiovascular: regular rate, rhythm, no murmur, normal peripheral pulses. Vessels: no JVD or carotid bruit Chest: normal inspection of chest, + chest wall TTP Abdomen/GI: + Multiple laparoscopic incisions clean, dry. Normal bowel sounds, soft, nontender, no hepatosplenomegaly Extremities/Musculoskelatal: no cyanosis or clubbing, extremities motor strength 5/5 Neurologic: PERRL, EOMI, accommodation nl, no face palsy, no dysarthria CN's II-XI intact bilaterally and moves all extremities Psychiatric: A+Ox3, + anxious Skin: no rashes, pale, warm/dry Results & Data Vital Signs (Past 12 Hours) Vital Signs Temp Pulse Resp BP Pulse Ox 04/24/19 19:30 36.5 C 87 20 112/80 98 04/24/19 18:30 36.6 C 90 17 97/71 L 94 04/24/19 17:30 36.5 C 67 18 96/55 L 93 04/24/19 17:10 36.3 C L 75 18 109/69 95 04/24/19 16:40 36.6 C 99 H 18 113/69 95 04/24/19 16:25 36.6 C 80 15 123/69 96 04/24/19 16:15 36.6 C 76 11 L 123/75 94 04/24/19 16:05 36.6 C 72 16 99/64 L 92 04/24/19 15:55 36.8 C 72 18 94/64 L 93 04/24/19 15:45 36.8 C 78 13 98/71 L 99 04/24/19 15:35 36.8 C 74 12 129/67 92 04/24/19 15:25 36.8 C 67 19 133/76 96 04/24/19 15:15 36.8 C 67 19 123/73 98 04/24/19 15:06 36.8 C 73 16 114/70 100 Laboratory Results Short CBC 04/24/19 Range/Units 19:52 Hgb 14.6 (12.0-16.0) g/dL Hct 44.3 (37-47) % BMP 04/24/19 20:22 Sodium 139 Potassium 4.5 Chloride 107 Carbon Dioxide 24 BUN 17 Creatinine 1.06 Glucose 160 H Calcium 8.3 L Cardiac Enzymes 04/24/19 Range/Units 20:22 Troponin I 2.830 H* (0-0.045) ng/ml Liver Function 04/24/19 Range/Units 20:22 Total Bilirubin 0.3 (0.2-1) mg/dl AST 50 H (15-37) U/L ALT 49 (12-78) U/L Alkaline Phosphatase 110 (45-117) U/L Albumin 3.4 (3.4-5.0) gm/dl Diagnostic Findings CXR: 1. No acute cardiopulmonary disease. ECG Findings: + ST elevation (inferior leads )
[2019-04-24] MEDS ORDERED: NOREPINEPHRINE BITARTRATE 1 MG/ML 4 ML VIAL (CATH LAB USE ONLY) ONE (23:36)
[2019-04-24] MEDS ORDERED: HEPARIN (PORCINE) 1000 UNIT/ML 10 ML (CATH LAB USE ONLY) ONE (23:54)
[2019-04-24] MEDS ORDERED: NiCARDipine HCL INJ 2.5 MG/ML 10 ML AMP ONE (23:54)
[2019-04-24] MEDS ORDERED: NITROGLYCERIN/D5W 100MCG/ML 20ML SYR ONE (23:55)
--- NOTE | 2019-04-24 23:58 | Post Anesthesia Assessment ---
Date of Service April 24, 2019 Post Sedation Assessment Vital Signs Temp Pulse Pulse Resp BP Pulse Ox 04/24/19 19:30 97.7 F 87 20 112/80 98 04/24/19 18:30 97.9 F 90 17 97/71 L 94 04/24/19 17:30 97.7 F 67 18 96/55 L 93 04/24/19 17:10 97.3 F L 75 18 109/69 95 04/24/19 16:40 97.9 F 99 H 18 113/69 95 04/24/19 16:25 97.9 F 80 15 123/69 96 04/24/19 16:15 97.9 F 76 11 L 123/75 94 04/24/19 16:05 97.9 F 72 16 99/64 L 92 04/24/19 15:55 98.2 F 72 18 94/64 L 93 04/24/19 15:45 98.2 F 78 13 98/71 L 99 04/24/19 15:35 98.2 F 74 12 129/67 92 04/24/19 15:25 98.2 F 67 19 133/76 96 04/24/19 15:15 98.2 F 67 19 123/73 98 04/24/19 15:06 98.2 F 73 16 114/70 100 04/24/19 08:43 97.7 F 64 18 121/87 64 L Recovery Score Activity: Moves 4 extremities Respiration: Deep Breath/Cough Circulation: +/-20% PreAnes Value Consciousness: Fully Awake Oxygen Saturation: O2 needed for >90% Post Anesthesia Score: 9 Post Sedation Plan On clinical assessment, the patient appears to have tolerated the sedation without complications. Patient is recovering as anticipated. Patient will continue to be monitored by nursing and may be discharged when sedation discharge criteria are met per below protocol. Upon Completions of procedure and additional 15 minutes continue every 5 minute vital signs and the P.A.R. score; then discharge to a Phase I or Fast Track to Phase II per the following guidelines: * Discharge Patient to appropriate Phase II area if PAR is 8 or greater or return to pre- procedure baseline. The post - procedure orders will be as directed. * If PAR score is less than 8 or not return to pre-procedure baseline then patient will follow Phase I monitoring till PAR is reached for Phase II. The Phase I may be done in procedure room or may call to secure a Phase I area. * If naloxone or flumazenil are used for reversal, hold in Phase I for continued monitoring from when last reversal dose was given for a minimum of 60 minutes or longer pending the nurse and/or physician discretion of patient condition before discharge to Phase II. Please call the Sedation Physician to re-evaluate and complete post-note for discharge to Phase II area. Do NOT discharge from procedure sedation or Phase 1 until post- sedation evaluation note is complete by procedure /sedation MD Sedation Discharge Instructions to be given to the patient at discharge to home.
--- NOTE | 2019-04-24 23:58 | Pre Anesthesia Assessment ---
Date of Service April 24, 2019 Pre Sedation Assessment Vital Signs Temp Pulse Pulse Resp BP Pulse Ox 04/24/19 19:30 97.7 F 87 20 112/80 98 04/24/19 18:30 97.9 F 90 17 97/71 L 94 04/24/19 17:30 97.7 F 67 18 96/55 L 93 04/24/19 17:10 97.3 F L 75 18 109/69 95 04/24/19 16:40 97.9 F 99 H 18 113/69 95 04/24/19 16:25 97.9 F 80 15 123/69 96 04/24/19 16:15 97.9 F 76 11 L 123/75 94 04/24/19 16:05 97.9 F 72 16 99/64 L 92 04/24/19 15:55 98.2 F 72 18 94/64 L 93 04/24/19 15:45 98.2 F 78 13 98/71 L 99 04/24/19 15:35 98.2 F 74 12 129/67 92 04/24/19 15:25 98.2 F 67 19 133/76 96 04/24/19 15:15 98.2 F 67 19 123/73 98 04/24/19 15:06 98.2 F 73 16 114/70 100 04/24/19 08:43 97.7 F 64 18 121/87 64 L Cardiovascular RRR, no murmur, no edema Respiratory normal respiratory effort, lungs clear to auscultation Pre-Sedation Airway Assessment Smoking Status: Current every day smoker Hx Sleep Apnea: No Hx Difficult Intubation: No Short, Thick Neck: No Thyromental Distance: > or= 3.5 Finger Breadths Oral Cavity: + WNL Mallampati Class: II Procedure Planning Contraindications for Sedation: none Current Medications Reviewed: Yes Notes The planned sedation has been discussed with the patient. Informed Consent was obtained. I have identified the patient, determined the appropriateness of sedation and have assessed the patient immediately prior to the procedure. All medicine(s) and interventions are by my order.
--- NOTE | 2019-04-25 00:18 | Cardiac Catheterization ---
[facility] Data: Rigger Cardiac Status Clinical evaluation leading to the procedure CAD Presenation: STEMI Anginal Classification: CCS IV Heart Failure: No Cardiogenic Shock within 24 Hours: No Cardiac Arrest within 24 Hours: No Imaging Studies Past 6 Months: No Stress Studies Past 6 Months: No Diagnostic Physicians Name: Gabe Win MD Status: Emergency Closure Device Percutaneous Entry Location: Radial Closure Device: Radial Band Recommendations: PCI without planned CABG PCI Indication: Immediate PCI for STEMI First Noted: First EKG Reason For Delay in PCI:: Difficult/delayed EKG interpretation Lesion Segment Name: distal RCA Culprit Artery: Yes Stenosis Prior to Rx (%): 100 Chronic Total Occlusion: No FFR: No Pre-Procedure ERIKA Flow: 0 Previously Treated Lesion: No Lesion Complexity: High/C Lesion Length (mm): 25 Thrombus Present: Yes Bifurcation Lesion: No Guidewire Across Lesion: Stenosis Post-Procedure (%): 0 Post-Procedure ERIKA Flow: 3 Devices(s) Deployed: Yes Yes Intraprocedure Events Significant Disection: No Perforation: No Cardiac Cath Procedure Full Procedure Date April 24, 2019 Pre-Procedure Diagnosis Pre-Procedure Diagnosis: STEMI AUC Score AUC Score: 9 Post-Procedure Diagnosis Post-Procedure Diagnosis: Severe CAD, Successful PCI and Elevated Intracardiac Pressures Procedure(s) Performed Procedure(s) Performed: Coronary Angiography, Left Heart Cath and Drug Eluting Stent Tonsorial Artist Gabe Win MD Channel Supervisor(s) Hesham Estimated Blood Loss Estimated Blood Loss: 15 Medication(s) Medication(s): Fentanyl, Heparin, Lidocaine 1%, Nicardipine, Nitroglycerin and Versed Medication(s): Ticagrelor 180mg Summary of Findings Indication: STEMI/Heart Alert Patient is a 58-year-old woman with a history of lower extremity peripheral arterial disease post prior SFA stenting, mild AAA, dyslipidemia, prior tobacco abuse who underwent extended laparoscopic total hysterectomy, bladder repair earlier today and later developed acute onset chest pain with new inferior ST elevations and elevated troponin. Access: 6 Fr right radial artery Catheters: JORGE Mccullough-1 guide, guide liner Findings: LM -moderate caliber, 20% distal disease LAD -moderate caliber, mid segment luminal irregularities, 30% late mid disease after gives off large second diagonal. Gives of faint collaterals to PDA. Circumflex -moderate caliber vessel, gives off high, moderate caliber first OM with 50 to 60% proximal stenosis. RCA -large caliber vessel, multiple sequential 40 to 50% mid RCA lesions, earlydistal RCA 100% acute occlusion with thrombus. LVEDP -23 -- PCI -- Antithrombotic therapy: Heparin (8000 units), ticagrelor 180 mg Procedure: RCA cannulated with AR-1 guide [place] 50 wire passed across lesion into PDA Distal RCA lesion predilated with 2.5 compliant balloon Dilated lesion stented with 3.0 x 18 mm integrity bare-metal stent With some difficulty stent post-dilated with 3.0 noncompliant balloon After stent postdilated, latemid to distal area just proximal to stent with worsened stenosis and ERIKA I distal flow. Mid to distal segment dilated with 2.5 balloon With the aid of a guide liner a second bare-metal stent was placed from mid to distal segment of RCA (3.0 x 18 mm integrity). IC vasodilators administered for spasm Post procedure ERIKA 3 flow, stent well expanded with minimal residual stenosis and no apparent cardiac complications. ST elevations resolved. Patient chest pain-free. Arterial Closure: TR band Summary: 1. Inferior STEMI/acute 100% distal RCA occlusion 2. Moderate single-vessel non-culprit coronary artery disease -50 to 60% focal proximal stenosis in high OM1 3. Elevated intracardiac filling pressure 4. Successful PCI of mid to distal RCA with 2 overlapping bare-metal stents (3.0 x 18, 3.0 x 18 integrity). Recommendations: Admit to ICU for continued monitoring Loaded with ticagrelor 180 mg in orthodontic laboratory technician with prior Plavix allergy. Continue dual-antiplatelet therapy likely for 1 year. Ticagrelor can be discontinued at 1 month if needed. Trend troponins until peak, Check Echo in a.m. Uptitrate beta-marcello, start TYLER as BP allows High-dose statin Consult cardiac Rehab Patient follows with Dr. Acosta of [facility] and his team will resume care in AM. Hemodynamics Rest Ao:: 104/60/73 Final Ao: 94/53/72 LV: 92/23 Recommendations Recommendations: PCI without planned CABG Specimens Specimens: None Radiation Exposure (mGy) 4341 Contrast (mls) 215 Fluids (cc crystalloids) Fluids (cc crystalloids): 600 Drains Drains: none Anesthesia moderate Procedural Complication(s) None Disposition ICU I attest to the content of the Intraoperative Record and any orders documented therein. Any exceptions are noted below.
[2019-04-25] MEDS ORDERED: NURSING DECISION MEDICATION ONE (00:19)
[2019-04-25] MEDS ORDERED: TICAGRELOR 90 MG TAB PO ONE ×2 (00:23→00:30)
[2019-04-25] MEDS ORDERED: SODIUM CHLORIDE 0.9% 500 ML IV SCH (00:30)
--- NOTE | 2019-04-25 00:39 | Critical Care Consultation ---
Date of Consultation April 25, 2019 Assessment & Plan (1) STEMI (ST elevation myocardial infarction): Reason Critically Ill: 58-year-old female s/p total hysterectomy pain that developed chest pain found to have inferior lateral STEMI, taken to [facility] where she receive stent x2 to RCA. Neuro - [facility] ICU: Negative Cardiac - STEMIpatient experienced chest pain after surgery and was found to have ST elevation and inferior leads -s/P heart cath with stent x2 to RCA with immediately relief of chest pain -We will follow EKGs -Trend troponin -Given infusion of Brilinta as patient has allergy to Plavix, aware of risk for bleeding following surgery, will monitor closely -Continue ASA, Lipitor, Brilinta, MTP -Follow-up echo -Continuous monitor on telemetry -Follow-up cardiology recs AAAfollowing an outpatient, reportedly grew from 3.5 cm to 4 cm over the past year -We will avoid hypertension, no current issue Respiratory - Currently requiring 1 L nasal cannula, will monitor continuous pulse ox GI - HSILstatus post total hysterectomy 04/24, reportedly extensive surgery with numerous adhesions -Abdominal exam benign and surgical incisions well approximated -Surgery following, appreciate recs -Understand patient is high risk for bleeding following Brilinta infusion, will trend H&H and monitor closely Heart healthy diet RENAL/LYTES - Creatinine and electrolytes stable, will monitor with routine BMPs - Patient appeared to sustain bladder injury during surgery which was repaired, Ramos left in place and plan to leave for 7 to 10 days and follow-up outpatient. Strict I's and O's\ ENDO - No history diabetes Continue home dose Synthroid HEME - H&H stable, will monitor regularly as patient is higher risk of bleeding following surgery and Brilinta infusion ID - No suspicion for infectious process at this time LINES/IV ACCESS - Peripheral IVs DVT PROPHYLAXIS - SCDs, holding anticoagulation following surgery Thank you for allowing us to participate in the care of this patient. Please refer to my attending physician's documentation for any further recommendations. (2) AAA (abdominal aortic aneurysm): (3) S/P hysterectomy with oophorectomy: (4) PVD (peripheral vascular disease): Supervising Physician Co-Signing Physician Notes I personally evaluated the patient today. She is mentating well despite her mean arterial pressures being in the 50s. We are giving her fluid boluses she appears to be slowly responding. Her urine appears a bit concentrated but I am hopeful this will improve with more volume expansion. She had a formal echo done and I was able to take a look at the RV and IVC and both look very collapsed indicating that she probably needs more volume. I suspect that she will do okay. It seems that she was started on Zosyn overnight for intra- abdominal sepsis concerns, but I see no signs of sepsis and I discontinued this. History of Present Illness Attending Physician: Louise Orozco MD, FACOG History of Present Illness Ms. Chery is a 58-year-old female with past medical history significant for AAA, PVD status post left SFA stenting 2013, tobacco abuse, dyslipidemia who was postop day 0 yesterday afternoon for a robotic total laparoscopic hysterectomy, left salpingectomy, extensive lysis of adhesions from a high-grade squamous intraepithelial lesion, when she began to experience chest pain 10 out of 10. Troponins were elevated and EKG showed inferior lateral ST elevation in heart code was initiated. She was found to have 100% occlusion of the RCA in the [facility] and received stent x2 to the RCA. She experienced immediate relief chest pain following stent placement. She was given Brilinta as patient has allergy to Plavix. On arrival to the ICU the patient is alert and oriented and appears comfortable with complaint of chest pain now 2 out of 10 which she expresses is significa ntly better than earlier. She is currently hemodynamically stable on room air. She denies headache, syncope, dizziness, shortness of breath, palpitations, nausea or vomiting. She does report abdominal pain and tenderness over surgical site, however abdomen remains soft and nondistended with normal bowel sounds and surgical sites are well approximated. Patient to remain in ICU overnight for close observation following STEMI and heart cath with stent placements. Allergies Allergy/AdvReac Type Severity Reaction Status Date / Time clopidogrel Allergy Intermediate rash Verified 04/24/19 08:36 Home Medications Home Medications Medication Instructions Recorded Confirmed Type ezetimibe 10 mg tablet 10 mg PO QPM tab 01/26/19 04/24/19 History levothyroxine 75 mcg tablet 75 mcg PO QPM tab 01/26/19 04/24/19 History lorazepam 0.5 mg tablet 0.5 mg PO HS PRN tab 01/26/19 04/24/19 History aspirin [Aspirin Low Dose] 81 mg PO QPM 03/27/19 04/24/19 History atorvastatin 40 mg PO PM 03/27/19 04/24/19 History metoprolol tartrate 25 mg PO QPM 03/27/19 04/24/19 History venlafaxine 37.5 mg PO QPM 03/27/19 04/24/19 History diphenhydramine 25 mg capsule 25 mg PO Q8H PRN 04/01/19 04/24/19 History fluticasone propionate 50 1 sprays INTNAS DAILY 04/01/19 04/24/19 History mcg/actuation nasal spray,suspension oxycodone-acetaminophen 5 mg-325 1 tab PO TID PRN #10 tab 04/01/19 04/24/19 Rx mg tablet carisoprodol [Soma] 350 mg PO QID 04/24/19 04/24/19 History Patient History Medical History AAA (abdominal aortic aneurysm) (Chronic) stable at 4.6cm- monitoring by [facility] surgery/under surveillance/no plan for surgical intervention at this time AAA (abdominal aortic aneurysm) without rupture (Chronic) Anxiety (Chronic) Depression (Chronic) H/O varicose veins (Chronic) 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) History of arterial occlusion (Chronic) Left SFA stent (2013) History of kidney stones (Chronic) Hyperlipidemia (Chronic) Hypothyroidism (Chronic) Surgical History History of (Chronic) X2 History of ectopic (Chronic) X2 Hx of cystoscopy (Chronic) FOR STONE REMOVAL Hx of left breast biopsy (Chronic) Hx of ovarian cystectomy (Chronic) RIGHT Hx of partial thyroidectomy (Chronic) 90% REMOVAL Hx of tubal ligation (Chronic) History of colposcopy with cervical biopsy (Chronic) 12/18/16; 08/22/17 History of loop electrical excision procedure (LEEP) (Chronic) Family History Grandmother (Maternal) Family history of diabetes mellitus Father Family history of diabetes mellitus Sister Family history of diabetes mellitus Mother Myocardial infarction Brother Myocardial infarction Social History Preferred Language: Estonian Communication Ability: Effective Beliefs That Will Affect Care: None Current Living Situation: Alone Feels Safe at Home: Yes Smoking Status: Current every day smoker Tobacco Type: cigarettes ; Age Started Using Tobacco: 13 ; packs per day: 0.5 ; Cigarettes Per Day: 10 cigarettes/day x 20+ years ; Do You Dip or Chew Tobacco: No ; Second Hand Exposure: No ; Hx Alcohol Use: Yes Hx Substance Use: No Review of Systems Review of Systems: All systems reviewed & are unremarkable except as noted in HPI & below Physical Exam Eyes: PERRL, conjunctivae normal, anicteric sclerae ENMT: external ear and nose normal, oropharynx normal Neck: trachea midline, no thyromegaly Respiratory: normal respiratory effort, lungs clear to auscultation Cardiovascular: RRR, no murmur, no edema Heart Sounds: normal S1 and normal S2 Vessels: no JVD Extremities: no edema Gastrointestinal (Abdomen): Inspection/Auscultation: normal bowel sounds Percussion/Palpation: + abdomen tender and abdomen soft Skin: no rashes, warm and dry Neurologic: PERRL, EOMI, accommodation nl, no face palsy, no dysarthria Psychiatric: A+Ox3, euthymic affect Genitourinary: Ramos catheter Results & Data Vital Signs (Past 12 Hours) Vital Signs Temp Pulse Resp BP Pulse Ox 04/24/19 19:30 36.5 C 87 20 112/80 98 04/24/19 18:30 36.6 C 90 17 97/71 L 94 04/24/19 17:30 36.5 C 67 18 96/55 L 93 04/24/19 17:10 36.3 C L 75 18 109/69 95 04/24/19 16:40 36.6 C 99 H 18 113/69 95 04/24/19 16:25 36.6 C 80 15 123/69 96 04/24/19 16:15 36.6 C 76 11 L 123/75 94 04/24/19 16:05 36.6 C 72 16 99/64 L 92 04/24/19 15:55 36.8 C 72 18 94/64 L 93 04/24/19 15:45 36.8 C 78 13 98/71 L 99 04/24/19 15:35 36.8 C 74 12 129/67 92 04/24/19 15:25 36.8 C 67 19 133/76 96 04/24/19 15:15 36.8 C 67 19 123/73 98 04/24/19 15:06 36.8 C 73 16 114/70 100 Coding Level of Care Code 99550 Inpt Consult Level 4 Diagnoses STEMI (ST elevation myocardial infarction) I21.3 AAA (abdominal aortic aneurysm) I71.4 S/P hysterectomy with oophorectomy Z90.710; Z90.721 PVD (peripheral vascular disease) I73.9
[2019-04-25] MEDS ORDERED: ICU PROTOCOL FOR HYPERGLYCEMIA PRN ×2 (00:42→00:55)
[2019-04-25 02:17] LABS: Hematocrit (blood only) 38.4 % (37-47); Hemoglobin 12.7 g/dL (12.0-16.0)
[2019-04-25] MEDS: EZETIMIBE 10 MG TABLET PO SCH ×2 (02:39→21:09)
[2019-04-25] MEDS: DOCUSATE SODIUM 100 MG CAP PO SCH ×3 (02:39→21:11)
[2019-04-25] MEDS: VENLAFAXINE HCL 37.5 MG TAB PO SCH ×2 (02:39→18:37)
[2019-04-25] MEDS: CARISOPRODOL 350 MG TABLET PO SCH ×2 (02:39→21:08)
[2019-04-25] MEDS: LEVOTHYROXINE SODIUM 75 MCG TABLET PO SCH ×2 (02:39→21:09)
[2019-04-25] MEDS: ATORVASTATIN 40 MG TAB PO SCH ×2 (02:39→21:09)
[2019-04-25] MEDS: OXYCODONE/ACETAMINOPHEN 5mg/325mg TAB PO PRN ×4 (02:51→21:08)
[2019-04-25] MEDS ORDERED: ALBUMIN 5% 250 ML IV ONE (03:00)
[2019-04-25] MEDS: LACTATED RINGER'S 1,000 ML IV SCH ×3 (04:32→22:19)
[2019-04-25 04:40] LABS: Basophils # (auto) 0.02 K/uL (0-0.2); Basophils % (auto) 0.2 %; Eosinophils # (auto) 0.02 K/uL (0-0.5); Eosinophils % (auto) 0.2 %; Immature Granulocytes # (auto) 0.02 K/uL (0.00-0.02); Immature Granulocytes % (auto) 0.2 %; Lymphocytes # (auto) 1.37 K/uL (1.2-3.4); Lymphocytes % (auto) 13.1 %; Mean Corpuscular Hemoglobin 30.8 pg (25-34); Mean Corpuscular Hgb Conc 33.3 g/dL (32-36); Mean Corpuscular Volume 92.3 fL (80-100); Mean Platelet Volume 10.1 fL (7.4-10.4); Monocytes # (auto) 0.82 K/uL (0.11-0.59); Monocytes % (auto) 7.9 %; Neutrophils # (auto) 8.19 K/uL (1.4-6.5); Neutrophils % (auto) 78.4 %; Platelet Count 172 K/uL (130-400); RDW Coefficient of Variation 13.6 % (11.5-14.5); RDW Standard Deviation 45.4 fL (36.4-46.3); White Blood Count 10.44 K/uL (4.8-10.8)
[2019-04-25 04:57] LABS: Albumin Level 3.2 gm/dl (3.4-5.0); BUN Creatinine Ratio 14.8 (10-20); Bilirubin Direct 0.1 mg/dl (0-0.2); Calcium 7.6 mg/dl (8.5-10.1); Est GFR (African American) 82.8; Est GFR (Non-African American) 71.4; Magnesium 1.8 mg/dl (1.8-2.4); Potassium 4.3 mmol/L (3.5-5.1)
[2019-04-25 05:16] LABS: Bilirubin,Total 0.4 mg/dl (0.2-1); Phosphorus 3.1 mg/dl (2.5-4.9)
[2019-04-25] MEDS ORDERED: PIPERACILL/TAZOBAC CONSULT ACTIVE PRN (05:37)
--- NOTE | 2019-04-25 05:58 | Progress Note ---
Date of Service April 25, 2019 Assessment & Plan (1) S/P hysterectomy with oophorectomy: pt had extensive Lysis of adhesions w/ AMOR- chest pain last pm cardiac cath with stents- on asa and addnl antiplt meds- H/H stable she is wide awake- some c/o of abd pain , affect is normal- she is hungry abd- distended but not rigid will try some clear liquids, adv very slowly, cont IV fluids, atbx Results & Data Vital Signs (Past 12 Hours) Vital Signs Temp Pulse Pulse Resp BP BP Pulse Ox 04/25/19 05:00 62 20 82/55 L 94 04/25/19 04:45 60 18 83/55 L 94 04/25/19 04:33 60 15 78/52 L 95 04/25/19 04:30 58 L 16 95 04/25/19 04:15 67 21 72/50 L 97 04/25/19 04:09 63 15 86/55 L 94 04/25/19 04:00 37.0 C 62 12 84/60 L 93 04/25/19 03:45 57 L 16 84/55 L 95 04/25/19 03:30 59 L 12 84/56 L 95 04/25/19 03:15 58 L 17 81/53 L 95 04/25/19 03:00 56 L 7 L 80/53 L 96 04/25/19 02:45 58 L 20 81/54 L 97 04/25/19 02:30 61 14 82/53 L 94 04/25/19 02:15 63 18 79/55 L 94 04/25/19 02:00 60 15 92/60 L 96 04/25/19 01:47 62 16 78/56 L 93 04/25/19 01:45 62 17 79/54 L 93 04/25/19 01:30 63 20 81/57 L 92 04/25/19 01:16 66 17 95 04/25/19 01:15 65 17 93/60 L 95 04/25/19 01:00 72 15 86/58 L 93 04/25/19 00:45 73 26 H 103/72 93 04/25/19 00:36 79 29 H 89/61 L 91 04/25/19 00:35 79 20 63/47 L 91 04/25/19 00:30 84 17 91 04/25/19 00:22 68 22 95 04/25/19 00:20 78 26 H 90/60 L 04/24/19 19:30 36.5 C 87 20 112/80 98 04/24/19 18:30 36.6 C 90 17 97/71 L 94 PG Care Time/CCT Total # of Minutes Spent Total Time Spent with Patient: Total time spent is greater than 50% in coordination of care (as documented) at patient's floor/unit and/or counseling patient:
[2019-04-25] MEDS ORDERED: PIPERACILLIN/TAZOBACTAM 3.375 GM in DEXTROSE 5% 100 ML IV ONE (06:00)
[2019-04-25] MEDS ORDERED: HYDROCORTISONE SOD SUCCINATE 100 MG/2 ML VIAL IV STA (06:16)
--- NOTE | 2019-04-25 07:12 | XRay Report ---
XR chest 1V portable CLINICAL HISTORY: Chest pain. COMPARISON STUDY: Chest radiograph April 01, 2019. FINDINGS: Surgical clips project over the lower neck. There is no pneumothorax or pleural effusion. T here is no evidence for pulmonary edema. Retrocardiac opacity is noted. This is bandlike and favors a telectasis. IMPRESSION: Left basilar opacity which favors atelectasis. Pneumonia could appear similar but is con sidered less likely. Electronically signed by: Dustin Mejía M.D. 04/25/2019 7:10 AM
[2019-04-25] MEDS ORDERED: SODIUM CHLORIDE 0.9% 500 ML IV STA (07:26)
--- NOTE | 2019-04-25 07:59 | Gynecologic Progress Note ---
Date of Service April 25, 2019 Assessment & Plan (1) S/P hysterectomy with oophorectomy: Spent significant time with the patient discussing the situation obviously the concern is that she requires anticoagulation medication from a cardiac point of view and at the same time with all the adhesions that were lysed in the recent hysterectomy she will have many areas that are potential areas of bleeding within her abdomen. Discussed that I am the team will follow her closely Subjective Patient is a 58-year-old woman who had a highly complex hysterectomy procedure laparoscopically yesterday the complexity was largely due to severe dense adhesions of bowel bladder and uterus. Surgery was approximately 5 hours and was accomplished laparoscopically. There was a small cystotomy at the time of surgery due to adhesions of the bowel on the bladder this was repaired by urology at the time. Postoperatively she was assessed by my partner Dr. Hooper and then the medical team and cardiac team and was found to need a cardiac catheterization procedure. Discussing with the patient this morning she is feeling well she has no chest pain says she has discomfort at the umbilicus but nothing outside the range of normal postoperative discomfort. She has no pain in her calves. Physical Exam Constitutional: WD/WN, vitals as above Gastrointestinal (Abdomen): normal bowel sounds, soft, nontender, no hepatosplenomegaly (Abdomen is not overly distended soft nontender) Results & Data Vital Signs (Past 12 Hours) Vital Signs Temp Pulse Resp BP Pulse Ox 04/25/19 05:00 62 20 82/55 L 94 04/25/19 04:45 60 18 83/55 L 94 04/25/19 04:33 60 15 78/52 L 95 04/25/19 04:30 58 L 16 95 04/25/19 04:15 67 21 72/50 L 97 04/25/19 04:09 63 15 86/55 L 94 04/25/19 04:00 98.6 F 62 12 84/60 L 93 04/25/19 03:45 57 L 16 84/55 L 95 04/25/19 03:30 59 L 12 84/56 L 95 04/25/19 03:15 58 L 17 81/53 L 95 04/25/19 03:00 56 L 7 L 80/53 L 96 04/25/19 02:45 58 L 20 81/54 L 97 04/25/19 02:30 61 14 82/53 L 94 04/25/19 02:15 63 18 79/55 L 94 04/25/19 02:00 60 15 92/60 L 96 04/25/19 01:47 62 16 78/56 L 93 04/25/19 01:45 62 17 79/54 L 93 04/25/19 01:30 63 20 81/57 L 92 04/25/19 01:16 66 17 95 04/25/19 01:15 65 17 93/60 L 95 04/25/19 01:00 72 15 86/58 L 93 04/25/19 00:45 73 26 H 103/72 93 04/25/19 00:36 79 29 H 89/61 L 91 04/25/19 00:35 79 20 63/47 L 91 04/25/19 00:30 84 17 91 04/25/19 00:22 68 22 95 04/25/19 00:20 78 26 H 90/60 L PG Care Time/CCT Total # of Minutes Spent Total Time Spent with Patient: Total time spent is greater than 50% in coordination of care (as documented) at patient's floor/unit and/or counseling patient:
[2019-04-25] MEDS ORDERED: SODIUM CHLORIDE 0.9% 1000ML 1,000 ML IV SCH (08:15)
--- NOTE | 2019-04-25 08:26 | Cardiology Consultation ---
Date of Consultation April 25, 2019 Assessment & Plan (1) STEMI (ST elevation myocardial infarction): (2) S/P hysterectomy with oophorectomy: (3) PVD (peripheral vascular disease): (4) AAA (abdominal aortic aneurysm): The patient is currently hemodynamically stable. 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 She is hypotensive most likely due to the inferior wall myocardial infarction and right ventricular dysfunction. I agree with giving an IV fluid bolus and I will start her on a maintenance IV. She has an allergy to Plavix. She is currently on Brilinta and aspirin. I would continue the metoprolol as tolerated depending on her blood pressure and heart rate. I would keep her in the ICU at least 24 hours. The biggest concern here is with the dual antiplatelet therapy which she requires to keep the coronary stents open in the right coronary artery. History of Present Illness Attending Physician: Louies Orozco MD, FACOG History of Present Illness This is a 58-year-old female who usually follows with Dr. Riccardo Acosta through our clinic. She has a history of cigarette smoking with peripheral vascular disease including stenting of the left SFA and abdominal aortic aneurysm. She has stopped smoking and more recently was working out at the gym. She was seen by Dr. Acosta in mid-March for cardiovascular risk assessment and was deemed moderate risk for an abdominal hysterectomy. Yesterday she underwent this procedure. It was an extensive operation because of bowel and bladder adhesions and was lengthy in duration. Postoperatively she developed severe 10 out of 10 chest discomfort. An EKG indicated an acute inferior wall myocardial infarction. Heart alert was called and the patient was taken to the cardiac catheterization lab last night by Dr. Win. The right coronary artery was found to be occluded. She received 2 bare-metal stents within the right coronary artery to recannulate the vessel. She was then admitted to the ICU. She has had no further chest pain. She has asymptomatic hypotension which is consistent with an inferior wall myocardial infarction with probable right ventricular involvement. She is receiving IV fluids. Despite her history of peripheral vascular disease this is her first cardiac event. Allergies Allergy/AdvReac Type Severity Reaction Status Date / Time clopidogrel Allergy Intermediate rash Verified 04/24/19 08:36 Home Medications Home Medications Medication Instructions Recorded Confirmed Type ezetimibe 10 mg tablet 10 mg PO QPM tab 01/26/19 04/24/19 History levothyroxine 75 mcg tablet 75 mcg PO QPM tab 01/26/19 04/24/19 History lorazepam 0.5 mg tablet 0.5 mg PO HS PRN tab 01/26/19 04/24/19 History aspirin [Aspirin Low Dose] 81 mg PO QPM 03/27/19 04/24/19 History atorvastatin 40 mg PO PM 03/27/19 04/24/19 History metoprolol tartrate 25 mg PO QPM 03/27/19 04/24/19 History venlafaxine 37.5 mg PO QPM 03/27/19 04/24/19 History diphenhydramine 25 mg capsule 25 mg PO Q8H PRN 04/01/19 04/24/19 History fluticasone propionate 50 1 sprays INTNAS DAILY 04/01/19 04/24/19 History mcg/actuation nasal spray,suspension oxycodone-acetaminophen 5 mg-325 1 tab PO TID PRN #10 tab 04/01/19 04/24/19 Rx mg tablet carisoprodol [Soma] 350 mg PO QID 04/24/19 04/24/19 History Patient History Medical History AAA (abdominal aortic aneurysm) (Chronic) stable at 4.6cm- monitoring by [facility] surgery/under surveillance/no plan for surgical intervention at this time AAA (abdominal aortic aneurysm) without rupture (Chronic) Anxiety (Chronic) Depression (Chronic) H/O varicose veins (Chronic) 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) History of arterial occlusion (Chronic) Left SFA stent (2013) History of kidney stones (Chronic) Hyperlipidemia (Chronic) Hypothyroidism (Chronic) Surgical History History of (Chronic) X2 History of ectopic (Chronic) X2 Hx of cystoscopy (Chronic) FOR STONE REMOVAL Hx of left breast biopsy (Chronic) Hx of ovarian cystectomy (Chronic) RIGHT Hx of partial thyroidectomy (Chronic) 90% REMOVAL Hx of tubal ligation (Chronic) History of colposcopy with cervical biopsy (Chronic) 12/18/16; 08/22/17 History of loop electrical excision procedure (LEEP) (Chronic) Family History Grandmother (Maternal) Family history of diabetes mellitus Father Family history of diabetes mellitus Sister Family history of diabetes mellitus Mother Myocardial infarction Brother Myocardial infarction Social History Preferred Language: Georgian Communication Ability: Effective Beliefs That Will Affect Care: None Current Living Situation: Alone Feels Safe at Home: Yes Smoking Status: Current every day smoker Tobacco Type: cigarettes ; Age Started Using Tobacco: 13 ; packs per day: 0.5 ; Cigarettes Per Day: 10 cigarettes/day x 20+ years ; Do You Dip or Chew Tobacco: No ; Second Hand Exposure: No ; Hx Alcohol Use: Yes Hx Substance Use: No Review of Systems Review of Systems: All systems reviewed & are unremarkable except as noted in HPI & below Nothing additional Physical Exam Physical Exam: General: no acute distress and stated age Head: normocephalic, no masses, lesions, tenderness or abnormalities Eyes: conjunctiva are pink and non-injected, sclera clear Neck: supple, no adenopathy, no bruits, normal jugular venous pulse, no hepatojugular reflux Chest: normal shape and normal respiratory effort Lungs: clear to auscultation and percussion Cardiac Exam: - regular rate & rhythm, no murmurs gallops or rubs - normal S1, normal S2 Pulses: 2(+) throughout Abdomen: Post hysterectomy Musculoskeletal: no gait disturbance, no joint inflammation, no deforming arthritis Extremities: no edema and no cyanosis Neuro: grossly normal exam Results & Data Vital Signs (Past 12 Hours) Vital Signs Temp Pulse Resp BP Pulse Ox 04/25/19 07:00 62 16 86/56 L 95 04/25/19 05:00 62 20 82/55 L 94 04/25/19 04:45 60 18 83/55 L 94 04/25/19 04:33 60 15 78/52 L 95 04/25/19 04:30 58 L 16 95 04/25/19 04:15 67 21 72/50 L 97 04/25/19 04:09 63 15 86/55 L 94 04/25/19 04:00 37.0 C 62 12 84/60 L 93 04/25/19 03:45 57 L 16 84/55 L 95 04/25/19 03:30 59 L 12 84/56 L 95 04/25/19 03:15 58 L 17 81/53 L 95 04/25/19 03:00 56 L 7 L 80/53 L 96 04/25/19 02:45 58 L 20 81/54 L 97 04/25/19 02:30 61 14 82/53 L 94 04/25/19 02:15 63 18 79/55 L 94 04/25/19 02:00 60 15 92/60 L 96 04/25/19 01:47 62 16 78/56 L 93 04/25/19 01:45 62 17 79/54 L 93 04/25/19 01:30 63 20 81/57 L 92 04/25/19 01:16 66 17 95 04/25/19 01:15 65 17 93/60 L 95 04/25/19 01:00 72 15 86/58 L 93 04/25/19 00:45 73 26 H 103/72 93 04/25/19 00:36 79 29 H 89/61 L 91 04/25/19 00:35 79 20 63/47 L 91 04/25/19 00:30 84 17 91 04/25/19 00:22 68 22 95 04/25/19 00:20 78 26 H 90/60 L Laboratory Results Laboratory Results - last 24 hr 04/24/19 04/24/19 04/24/19 19:52 20:22 20:22 WBC RBC Hgb 14.6 Hct 44.3 MCV MCH MCHC RDW Std Deviation RDW Coeff of Karthikeyan Plt Count MPV Immature Gran % (Auto) Neut % (Auto) Lymph % (Auto) Benzie % (Auto) Eos % (Auto) Baso % (Auto) Immature Gran # (Auto) Neut # (Auto) Lymph # (Auto) Benzie # (Auto) Eos # (Auto) Baso # (Auto) APTT PTT Ratio Sodium 139 Potassium 4.5 Chloride 107 Carbon Dioxide 24 Anion Gap 8.0 BUN 17 Creatinine 1.06 Est Cr Clr Drug Dosing 59.0 Est GFR ( Amer) 66.1 Est GFR (Non-Af Amer) 57.0 BUN/Creatinine Ratio 16.0 Glucose 160 H Lactate Calcium 8.3 L Phosphorus Magnesium 1.9 Total Bilirubin 0.3 Direct Bilirubin AST 50 H ALT 49 Alkaline Phosphatase 110 Troponin I 2.830 H* Total Protein 6.7 Albumin 3.4 Globulin 3.3 Albumin/Globulin Ratio 1.0 Lipase 132 Procalcitonin Random Cortisol Nasal Screen MRSA (PCR) 04/24/19 04/24/19 04/24/19 20:22 20:22 21:53 WBC RBC Hgb Hct MCV MCH MCHC RDW Std Deviation RDW Coeff of Karthikeyan Plt Count MPV Immature Gran % (Auto) Neut % (Auto) Lymph % (Auto) Benzie % (Auto) Eos % (Auto) Baso % (Auto) Immature Gran # (Auto) Neut # (Auto) Lymph # (Auto) Benzie # (Auto) Eos # (Auto) Baso # (Auto) APTT 25.6 PTT Ratio 0.9 Sodium Potassium Chloride Carbon Dioxide Anion Gap BUN Creatinine Est Cr Clr Drug Dosing Est GFR ( Amer) Est GFR (Non-Af Amer) BUN/Creatinine Ratio Glucose Lactate Calcium Phosphorus Magnesium Cancelled Total Bilirubin Direct Bilirubin AST ALT Alkaline Phosphatase Troponin I 8.380 H* Total Protein Albumin Globulin Albumin/Globulin Ratio Lipase Procalcitonin Random Cortisol Nasal Screen MRSA (PCR) 04/25/19 04/25/19 04/25/19 01:58 04:29 04:29 WBC 10.44 RBC 3.90 L Hgb 12.7 12.0 Hct 38.4 36.0 L MCV 92.3 MCH 30.8 MCHC 33.3 RDW Std Deviation 45.4 RDW Coeff of Karthikeyan 13.6 Plt Count 172 MPV 10.1 Immature Gran % (Auto) 0.2 Neut % (Auto) 78.4 Lymph % (Auto) 13.1 Benzie % (Auto) 7.9 Eos % (Auto) 0.2 Baso % (Auto) 0.2 Immature Gran # (Auto) 0.02 Neut # (Auto) 8.19 H Lymph # (Auto) 1.37 Benzie # (Auto) 0.82 H Eos # (Auto) 0.02 Baso # (Auto) 0.02 APTT PTT Ratio Sodium 139 Potassium 4.3 Chloride 107 Carbon Dioxide 27 Anion Gap 5.0 BUN 13 Creatinine 0.88 Est Cr Clr Drug Dosing 71.0 Est GFR ( Amer) 82.8 Est GFR (Non-Af Amer) 71.4 BUN/Creatinine Ratio 14.8 Glucose 118 H Lactate Calcium 7.6 L Phosphorus 3.1 Magnesium 1.8 Total Bilirubin 0.4 Direct Bilirubin 0.1 AST 293 H ALT 55 Alkaline Phosphatase 88 Troponin I 106.000 H* Total Protein 6.0 L Albumin 3.2 L Globulin Albumin/Globulin Ratio Lipase Procalcitonin Random Cortisol Nasal Screen MRSA (PCR) 04/25/19 04/25/19 04/25/19 04:29 04:29 05:42 WBC RBC Hgb Hct MCV MCH MCHC RDW Std Deviation RDW Coeff of Karthikeyan Plt Count MPV Immature Gran % (Auto) Neut % (Auto) Lymph % (Auto) Benzie % (Auto) Eos % (Auto) Baso % (Auto) Immature Gran # (Auto) Neut # (Auto) Lymph # (Auto) Benzie # (Auto) Eos # (Auto) Baso # (Auto) APTT PTT Ratio Sodium Potassium Chloride Carbon Dioxide Anion Gap BUN Creatinine Est Cr Clr Drug Dosing Est GFR ( Amer) Est GFR (Non-Af Amer) BUN/Creatinine Ratio Glucose Lactate 2.5 H* Calcium Phosphorus Magnesium Total Bilirubin Direct Bilirubin AST ALT Alkaline Phosphatase Troponin I Total Protein Albumin Globulin Albumin/Globulin Ratio Lipase Procalcitonin < 0.05 Random Cortisol Pending Nasal Screen MRSA (PCR) 04/25/19 Unknown WBC RBC Hgb Hct MCV MCH MCHC RDW Std Deviation RDW Coeff of Karthikeyan Plt Count MPV Immature Gran % (Auto) Neut % (Auto) Lymph % (Auto) Benzie % (Auto) Eos % (Auto) Baso % (Auto) Immature Gran # (Auto) Neut # (Auto) Lymph # (Auto) Benzie # (Auto) Eos # (Auto) Baso # (Auto) APTT PTT Ratio Sodium Potassium Chloride Carbon Dioxide Anion Gap BUN Creatinine Est Cr Clr Drug Dosing Est GFR ( Amer) Est GFR (Non-Af Amer) BUN/Creatinine Ratio Glucose Lactate Calcium Phosphorus Magnesium Total Bilirubin Direct Bilirubin AST ALT Alkaline Phosphatase Troponin I Total Protein Albumin Globulin Albumin/Globulin Ratio Lipase Procalcitonin Random Cortisol Nasal Screen MRSA (PCR) Negative Medications Administered Current Inpatient Medications Acetaminophen (Tylenol) 650 mg PO Q6H PRN PRN Reason: pain, headache or fever Stop: 05/24/19 16:53 Aspirin (Ecotrin Ectab) 81 mg PO QPM NATHANIEL Stop: 05/24/19 20:59 Atorvastatin Calcium (Lipitor) 40 mg PO PM NATHANIEL Stop: 05/24/19 20:59 Last Admin: 04/25/19 02:39 Dose: Not Given Documented by: Bisacodyl (Dulcolax) 10 mg [place] DAILY PRN PRN Reason: Constipation or flatulance Stop: 05/24/19 16:53 Carisoprodol (Soma) 350 mg PO QPM NATHANIEL Stop: 05/24/19 20:59 Last Admin: 04/25/19 02:39 Dose: Not Given Documented by: Diphenhydramine HCl (Benadryl Capsule) 25 mg PO Q8H PRN PRN Reason: Allergic Symptoms Stop: 05/24/19 16:53 Docusate Sodium (Colace) 100 mg PO BID NATHANIEL Stop: 05/24/19 20:59 Last Admin: 04/25/19 08:20 Dose: 100 mg Documented by: Ezetimibe (Zetia) 10 mg PO QPM NATHANIEL Stop: 05/24/19 20:59 Last Admin: 04/25/19 02:39 Dose: Not Given Documented by: Fluticasone Propionate (Flonase) 1 sprays NA DAILY NATHANIEL Stop: 05/25/19 08:59 Promethazine HCl 12.5 mg/ (Sodium Chloride) 50.5 mls @ 204 mls/hr IV Q6H PRN PRN Reason: Nausea And Vomiting Stop: 05/24/19 16:53 Promethazine HCl 25 mg/ Sodium (Chloride) 51 mls @ 204 mls/hr IV Q6H PRN PRN Reason: Nausea And Vomiting Stop: 05/24/19 16:53 Piperacillin Sod/Tazobactam (Sod 3.375 gm/ Dextrose) 115 mls @ 28.75 mls/hr IV Q8H NATHANIEL; Protocol Stop: 04/27/19 11:59 Sodium Chloride (Nss) 500 mls @ 500 mls/hr IV .Q1H STA Stop: 04/25/19 08:25 Last Admin: 04/25/19 08:01 Dose: 500 mls/hr Documented by: Sodium Chloride (Nss 1000ml) 1,000 mls @ 80 mls/hr IV .[id number] NATHANIEL Stop: 05/25/19 08:14 Levothyroxine Sodium (Synthroid) 75 mcg PO QPM NATHANIEL Stop: 05/24/19 20:59 Last Admin: 04/25/19 02:39 Dose: Not Given Documented by: Lorazepam (Ativan) 0.5 mg PO HS PRN PRN Reason: Anxiety Stop: 05/24/19 16:53 Magnesium Hydroxide (Milk Of Magnesia) 30 ml PO Q6H PRN PRN Reason: Constipation Stop: 05/24/19 16:53 Meperidine HCl (Demerol) 50 mg IV Q4H PRN PRN Reason: Pain Scale 1,2,3,4,5 Stop: 05/08/19 16:53 Metoprolol Tartrate (Lopressor) 25 mg PO QPM [facility] Stop: 05/24/19 20:59 Last Admin: 04/25/19 02:39 Dose: Not Given Documented by: Miscellaneous (Icu Protocol For Hyperglycemia) 1 ea N/A PRN PRN; Protocol PRN Reason: Hyperglycemia Protocol Stop: 04/27/19 00:41 Miscellaneous Information (Consult) 1 ea N/A UD PRN PRN Reason: Consult Stop: 05/25/19 05:36 Ondansetron HCl (Zofran) 4 mg IV Q6H PRN PRN Reason: Nausea And Vomiting Stop: 05/24/19 16:53 Oxycodone/Acetaminophen (Percocet 5mg/325mg) 1 tab PO Q4H PRN PRN Reason: Pain Scale 1,2,3,4,5 Stop: 05/08/19 16:53 Last Admin: 04/25/19 08:18 Dose: 1 tab Documented by: Oxycodone/Acetaminophen (Percocet 5mg/325mg) 2 tab PO Q4H PRN PRN Reason: Pain Scale 6,7,8,9,10 Stop: 05/08/19 16:53 Simethicone (Mylicon) 80 mg PO TID PRN PRN Reason: Gas Stop: 05/24/19 16:53 Ticagrelor (Brilinta) 90 mg PO BID [facility] Stop: 05/25/19 20:59 Venlafaxine HCl (Effexor) 37.5 mg PO QPM [facility] Stop: 05/24/19 20:59 Last Admin: 04/25/19 02:39 Dose: Not Given Documented by:
[2019-04-25] MEDS ORDERED: NOREPINEPHRINE BIT INJ 8 MG in DEXTROSE 5% 500 ML IV STA (09:09)
[2019-04-25] MEDS ORDERED: LACTATED RINGER'S 1,000 ML IV ONE ×2 (09:15→10:44)
[2019-04-25] MEDS ORDERED: NOREPINEPHRINE BIT INJ 8 MG in DEXTROSE 5% 500 ML IV SCH (09:15)
[2019-04-25] MEDS ORDERED: PERFLUTREN LIPID MICROSPHERE (DEFINITY) IV ONE (09:37)
[2019-04-25] MEDS: FLUTICASONE PROPIONATE NA SPR 16 GM BTL SCH (09:45)
[2019-04-25 10:01] LABS: Hemoglobin 10.4 g/dL (12.0-16.0)
--- NOTE | 2019-04-25 10:59 | Hospitalist Progress Note ---
Date of Service April 25, 2019 Assessment & Plan (1) STEMI (ST elevation myocardial infarction): 58 y/o F with a PMH of AAA, PVD s/p left SFA stenting in 2013, tobacco use disorder, dyslipidemia who is POD#1 s/p robotic total laparoscopic hysterectomy, left salpingectomy, extensive lysis of adhesions who developed postoperative chest pain and was found to have an inferior wall STEMI. -Post op shoulder pain migrated to central 10/10 chest pain with associated nausea -Patient with significant family history of premature CAD, lifelong smoker -EKG revealed acute ST elevations in inferior leads. Initial troponin elevated at 2.8. CXR without acute abnormalities -cardiology was contacted and pt underwent cardiac cath, now s/p PCI of distal RCA w/2 overlapping bare-metal stents, on brillinta and ASA -plan to uptitrate beta-marcello, start ACEi as BP permits -pt hypotensive this morning, received 3L of IVF,was then started on dobutamine -Patient is in ICU for close hemodynamic monitoring and medical management Echo: LV normal in size, severe inferior wall hypokinesis, severe septal hypokinesis, EF 50 to 55%, RV systolic function normal, LA and RA size normal, no significant valvular pathology. (2) S/P hysterectomy with oophorectomy: POD#1 s/p robotic total laparoscopic hysterectomy, left salpingectomy, extensive lysis of adhesions by Dr. Orozco -Mgmt per obgyn (3) AAA (abdominal aortic aneurysm): Follows with Dr. Acosta for 4 cm AAA -diameter increased from 3.5 cm one year ago -Abdominal aortic duplex report 12/2018: There is evidence of a 4.0 centimeter abdominal aortic aneurysm. Color Doppler imaging demonstrates flow consistent with a patent lumen at and distal to the aortic aneurysm. (4) PVD (peripheral vascular disease): Peripheral vascular disease with history of left SFA stenting 05/2014 with angioplasty for restenosis in 2014 while living in [place], [place] Code status: FULL PCP: Misha Acosta Subjective Patient is lying in bed, in no acute distress, however feeling weak and somewhat sad about last night, when she developed acute chest pain and underwent cardiac cath. Denies any fevers, chills. She also currently denies chest pain or shortness of breath. She does have some cough with deep inspiration, she is trying not to cough because it causes abdominal pain (post surg.). Review of Systems Constitutional: no fever and no chills Respiratory: + cough (on deep inspiration); no dyspnea Cardiovascular: no chest pain, no palpitations and no edema Gastrointestinal: + abdominal pain (post-surg. ) and + nausea Physical Exam Constitutional: well developed and well nourished; no acute distress Eyes: PERRL, conjunctivae normal, anicteric sclerae ENMT: external ear and nose normal, oropharynx normal Neck: supple Respiratory: normal respiratory effort, lungs clear to auscultation Cardiovascular: RRR, no murmur, no edema Vessels: normal peripheral pulses Chest (Breasts): normal inspection/palpation of breasts Gastrointestinal (Abdomen): Inspection/Auscultation: normal bowel sounds; + abdomen abnormal to inspection (several post.surg. inc. sites - w/o erythema, edema, drainage) Percussion/Palpation: + abdomen tender (diffusely to palp. / post. surg.) Musculoskeletal: Head/Neck/Chest: normocephalic, head atraumatic and neck supple Extremities: extremities normal to inspection and strength 5/5 throughout Skin: no rashes, warm and dry surg. inc. as above Neurologic: PERRL, EOMI, accommodation nl, no face palsy, no dysarthria Psychiatric: A+Ox3, euthymic affect Speech: normal rate/rhythm/volume of speech Genitourinary: no CVA tenderness Lymphatic: no lymphedema and no cervical lymphadenopathy Results & Data Vital Signs (Past 12 Hours) Vital Signs Temp Pulse Resp BP Pulse Ox 04/25/19 07:00 62 16 86/56 L 95 04/25/19 05:00 62 20 82/55 L 94 04/25/19 04:45 60 18 83/55 L 94 04/25/19 04:33 60 15 78/52 L 95 04/25/19 04:30 58 L 16 95 04/25/19 04:15 67 21 72/50 L 97 04/25/19 04:09 63 15 86/55 L 94 04/25/19 04:00 37.0 C 62 12 84/60 L 93 04/25/19 03:45 57 L 16 84/55 L 95 04/25/19 03:30 59 L 12 84/56 L 95 04/25/19 03:15 58 L 17 81/53 L 95 04/25/19 03:00 56 L 7 L 80/53 L 96 04/25/19 02:45 58 L 20 81/54 L 97 04/25/19 02:30 61 14 82/53 L 94 04/25/19 02:15 63 18 79/55 L 94 04/25/19 02:00 60 15 92/60 L 96 04/25/19 01:47 62 16 78/56 L 93 04/25/19 01:45 62 17 79/54 L 93 04/25/19 01:30 63 20 81/57 L 92 04/25/19 01:16 66 17 95 04/25/19 01:15 65 17 93/60 L 95 04/25/19 01:00 72 15 86/58 L 93 04/25/19 00:45 73 26 H 103/72 93 04/25/19 00:36 79 29 H 89/61 L 91 04/25/19 00:35 79 20 63/47 L 91 04/25/19 00:30 84 17 91 04/25/19 00:22 68 22 95 04/25/19 00:20 78 26 H 90/60 L Laboratory Results 04/25/19 04/25/19 04/25/19 Range/Units Unknown 09:50 09:50 WBC (4.8-10.8) K/uL RBC (4.2-5.4) M/uL Hgb 10.4 L (12.0-16.0) g/dL Hct 31.0 L (37-47) % MCV (80-100) fL MCH (25-34) pg MCHC (32-36) g/dL RDW Std Deviation (36.4-46.3) fL RDW Coeff of Karthikeyan (11.5-14.5) % Plt Count (130-400) K/uL MPV (7.4-10.4) fL Immature Gran % (Auto) % Neut % (Auto) % Lymph % (Auto) % [place] % (Auto) % Eos % (Auto) % Baso % (Auto) % Immature Gran # (Auto) (0.00-0.02) K/uL Neut # (Auto) (1.4-6.5) K/uL Lymph # (Auto) (1.2-3.4) K/uL [place] # (Auto) (0.11-0.59) K/uL Eos # (Auto) (0-0.5) K/uL Baso # (Auto) (0-0.2) K/uL APTT (21.0-31.0) Seconds PTT Ratio Sodium (136-145) mmol/L Potassium (3.5-5.1) mmol/L Chloride (98-107) mmol/L Carbon Dioxide (21-32) mmol/L Anion Gap (3-11) BUN (7-18) mg/dl Creatinine (0.6-1.2) mg/dl Est Cr Clr Drug Dosing ml/min Est GFR ( Amer) Est GFR (Non-Af Amer) BUN/Creatinine Ratio (10-20) Glucose (70-99) mg/dl Lactate 3.6 H* (0.4-2.0) mmol/L Calcium (8.5-10.1) mg/dl Phosphorus (2.5-4.9) mg/dl Magnesium (1.8-2.4) mg/dl Total Bilirubin (0.2-1) mg/dl Direct Bilirubin (0-0.2) mg/dl AST (15-37) U/L ALT (12-78) U/L Alkaline Phosphatase (45-117) U/L Troponin I (0-0.045) ng/ml Total Protein (6.4-8.2) gm/dl Albumin (3.4-5.0) gm/dl Globulin (2.5-4.0) gm/dl Albumin/Globulin Ratio (0.9-2) Lipase (73-393) U/L Procalcitonin (0-0.5) ng/ml Random Cortisol mcg/dl Nasal Screen MRSA (PCR) Negative (Negative) 04/25/19 04/25/19 04/25/19 Range/Units 09:50 05:42 04:29 WBC (4.8-10.8) K/uL RBC (4.2-5.4) M/uL Hgb (12.0-16.0) g/dL Hct (37-47) % MCV (80-100) fL MCH (25-34) pg MCHC (32-36) g/dL RDW Std Deviation (36.4-46.3) fL RDW Coeff of Karthikeyan (11.5-14.5) % Plt Count (130-400) K/uL MPV (7.4-10.4) fL Immature Gran % (Auto) % Neut % (Auto) % Lymph % (Auto) % [place] % (Auto) % Eos % (Auto) % Baso % (Auto) % Immature Gran # (Auto) (0.00-0.02) K/uL Neut # (Auto) (1.4-6.5) K/uL Lymph # (Auto) (1.2-3.4) K/uL [place] # (Auto) (0.11-0.59) K/uL Eos # (Auto) (0-0.5) K/uL Baso # (Auto) (0-0.2) K/uL APTT (21.0-31.0) Seconds PTT Ratio Sodium (136-145) mmol/L Potassium (3.5-5.1) mmol/L Chloride (98-107) mmol/L Carbon Dioxide (21-32) mmol/L Anion Gap (3-11) BUN (7-18) mg/dl Creatinine (0.6-1.2) mg/dl Est Cr Clr Drug Dosing ml/min Est GFR ( Amer) Est GFR (Non-Af Amer) BUN/Creatinine Ratio (10-20) Glucose (70-99) mg/dl Lactate 2.5 H* (0.4-2.0) mmol/L Calcium (8.5-10.1) mg/dl Phosphorus (2.5-4.9) mg/dl Magnesium (1.8-2.4) mg/dl Total Bilirubin (0.2-1) mg/dl Direct Bilirubin (0-0.2) mg/dl AST (15-37) U/L ALT (12-78) U/L Alkaline Phosphatase (45-117) U/L Troponin I 81.400 H* (0-0.045) ng/ml Total Protein (6.4-8.2) gm/dl Albumin (3.4-5.0) gm/dl Globulin (2.5-4.0) gm/dl Albumin/Globulin Ratio (0.9-2) Lipase (73-393) U/L Procalcitonin < 0.05 (0-0.5) ng/ml Random Cortisol mcg/dl Nasal Screen MRSA (PCR) (Negative) 04/25/19 04/25/19 04/25/19 Range/Units 04:29 04:29 04:29 WBC 10.44 (4.8-10.8) K/uL RBC 3.90 L (4.2-5.4) M/uL Hgb 12.0 (12.0-16.0) g/dL Hct 36.0 L (37-47) % MCV 92.3 (80-100) fL MCH 30.8 (25-34) pg MCHC 33.3 (32-36) g/dL RDW Std Deviation 45.4 (36.4-46.3) fL RDW Coeff of Karthikeyan 13.6 (11.5-14.5) % Plt Count 172 (130-400) K/uL MPV 10.1 (7.4-10.4) fL Immature Gran % (Auto) 0.2 % Neut % (Auto) 78.4 % Lymph % (Auto) 13.1 % [place] % (Auto) 7.9 % Eos % (Auto) 0.2 % Baso % (Auto) 0.2 % Immature Gran # (Auto) 0.02 (0.00-0.02) K/uL Neut # (Auto) 8.19 H (1.4-6.5) K/uL Lymph # (Auto) 1.37 (1.2-3.4) K/uL [place] # (Auto) 0.82 H (0.11-0.59) K/uL Eos # (Auto) 0.02 (0-0.5) K/uL Baso # (Auto) 0.02 (0-0.2) K/uL APTT (21.0-31.0) Seconds PTT Ratio Sodium 139 (136-145) mmol/L Potassium 4.3 (3.5-5.1) mmol/L Chloride 107 (98-107) mmol/L Carbon Dioxide 27 (21-32) mmol/L Anion Gap 5.0 (3-11) BUN 13 (7-18) mg/dl Creatinine 0.88 (0.6-1.2) mg/dl Est Cr Clr Drug Dosing 71.0 ml/min Est GFR ( Amer) 82.8 Est GFR (Non-Af Amer) 71.4 BUN/Creatinine Ratio 14.8 (10-20) Glucose 118 H (70-99) mg/dl Lactate (0.4-2.0) mmol/L Calcium 7.6 L (8.5-10.1) mg/dl Phosphorus 3.1 (2.5-4.9) mg/dl Magnesium 1.8 (1.8-2.4) mg/dl Total Bilirubin 0.4 (0.2-1) mg/dl Direct Bilirubin 0.1 (0-0.2) mg/dl AST 293 H (15-37) U/L ALT 55 (12-78) U/L Alkaline Phosphatase 88 (45-117) U/L Troponin I 106.000 H* (0-0.045) ng/ml Total Protein 6.0 L (6.4-8.2) gm/dl Albumin 3.2 L (3.4-5.0) gm/dl Globulin (2.5-4.0) gm/dl Albumin/Globulin Ratio (0.9-2) Lipase (73-393) U/L Procalcitonin (0-0.5) ng/ml Random Cortisol 2.48 mcg/dl Nasal Screen MRSA (PCR) (Negative) 04/25/19 04/24/19 04/24/19 Range/Units 01:58 21:53 20:22 WBC (4.8-10.8) K/uL RBC (4.2-5.4) M/uL Hgb 12.7 (12.0-16.0) g/dL Hct 38.4 (37-47) % MCV (80-100) fL MCH (25-34) pg MCHC (32-36) g/dL RDW Std Deviation (36.4-46.3) fL RDW Coeff of Karthikeyan (11.5-14.5) % Plt Count (130-400) K/uL MPV (7.4-10.4) fL Immature Gran % (Auto) % Neut % (Auto) % Lymph % (Auto) % [place] % (Auto) % Eos % (Auto) % Baso % (Auto) % Immature Gran # (Auto) (0.00-0.02) K/uL Neut # (Auto) (1.4-6.5) K/uL Lymph # (Auto) (1.2-3.4) K/uL [place] # (Auto) (0.11-0.59) K/uL Eos # (Auto) (0-0.5) K/uL Baso # (Auto) (0-0.2) K/uL APTT (21.0-31.0) Seconds PTT Ratio Sodium (136-145) mmol/L Potassium (3.5-5.1) mmol/L Chloride (98-107) mmol/L Carbon Dioxide (21-32) mmol/L Anion Gap (3-11) BUN (7-18) mg/dl Creatinine (0.6-1.2) mg/dl Est Cr Clr Drug Dosing ml/min Est GFR ( Amer) Est GFR (Non-Af Amer) BUN/Creatinine Ratio (10-20) Glucose (70-99) mg/dl Lactate (0.4-2.0) mmol/L Calcium (8.5-10.1) mg/dl Phosphorus (2.5-4.9) mg/dl Magnesium Cancelled (1.8-2.4) mg/dl Total Bilirubin (0.2-1) mg/dl Direct Bilirubin (0-0.2) mg/dl AST (15-37) U/L ALT (12-78) U/L Alkaline Phosphatase (45-117) U/L Troponin I 8.380 H* (0-0.045) ng/ml Total Protein (6.4-8.2) gm/dl Albumin (3.4-5.0) gm/dl Globulin (2.5-4.0) gm/dl Albumin/Globulin Ratio (0.9-2) Lipase (73-393) U/L Procalcitonin (0-0.5) ng/ml Random Cortisol mcg/dl Nasal Screen MRSA (PCR) (Negative) 04/24/19 04/24/19 04/24/19 Range/Units 20:22 20:22 20:22 WBC (4.8-10.8) K/uL RBC (4.2-5.4) M/uL Hgb (12.0-16.0) g/dL Hct (37-47) % MCV (80-100) fL MCH (25-34) pg MCHC (32-36) g/dL RDW Std Deviation (36.4-46.3) fL RDW Coeff of Karthikeyan (11.5-14.5) % Plt Count (130-400) K/uL MPV (7.4-10.4) fL Immature Gran % (Auto) % Neut % (Auto) % Lymph % (Auto) % [place] % (Auto) % Eos % (Auto) % Baso % (Auto) % Immature Gran # (Auto) (0.00-0.02) K/uL Neut # (Auto) (1.4-6.5) K/uL Lymph # (Auto) (1.2-3.4) K/uL [place] # (Auto) (0.11-0.59) K/uL Eos # (Auto) (0-0.5) K/uL Baso # (Auto) (0-0.2) K/uL APTT 25.6 (21.0-31.0) Seconds PTT Ratio 0.9 Sodium 139 (136-145) mmol/L Potassium 4.5 (3.5-5.1) mmol/L Chloride 107 (98-107) mmol/L Carbon Dioxide 24 (21-32) mmol/L Anion Gap 8.0 (3-11) BUN 17 (7-18) mg/dl Creatinine 1.06 (0.6-1.2) mg/dl Est Cr Clr Drug Dosing 59.0 ml/min Est GFR ( Amer) 66.1 Est GFR (Non-Af Amer) 57.0 BUN/Creatinine Ratio 16.0 (10-20) Glucose 160 H (70-99) mg/dl Lactate (0.4-2.0) mmol/L Calcium 8.3 L (8.5-10.1) mg/dl Phosphorus (2.5-4.9) mg/dl Magnesium 1.9 (1.8-2.4) mg/dl Total Bilirubin 0.3 (0.2-1) mg/dl Direct Bilirubin (0-0.2) mg/dl AST 50 H (15-37) U/L ALT 49 (12-78) U/L Alkaline Phosphatase 110 (45-117) U/L Troponin I 2.830 H* (0-0.045) ng/ml Total Protein 6.7 (6.4-8.2) gm/dl Albumin 3.4 (3.4-5.0) gm/dl Globulin 3.3 (2.5-4.0) gm/dl Albumin/Globulin Ratio 1.0 (0.9-2) Lipase 132 (73-393) U/L Procalcitonin (0-0.5) ng/ml Random Cortisol mcg/dl Nasal Screen MRSA (PCR) (Negative) 04/24/19 Range/Units 19:52 WBC (4.8-10.8) K/uL RBC (4.2-5.4) M/uL Hgb 14.6 (12.0-16.0) g/dL Hct 44.3 (37-47) % MCV (80-100) fL MCH (25-34) pg MCHC (32-36) g/dL RDW Std Deviation (36.4-46.3) fL RDW Coeff of Karthikeyan (11.5-14.5) % Plt Count (130-400) K/uL MPV (7.4-10.4) fL Immature Gran % (Auto) % Neut % (Auto) % Lymph % (Auto) % [place] % (Auto) % Eos % (Auto) % Baso % (Auto) % Immature Gran # (Auto) (0.00-0.02) K/uL Neut # (Auto) (1.4-6.5) K/uL Lymph # (Auto) (1.2-3.4) K/uL [place] # (Auto) (0.11-0.59) K/uL Eos # (Auto) (0-0.5) K/uL Baso # (Auto) (0-0.2) K/uL APTT (21.0-31.0) Seconds PTT Ratio Sodium (136-145) mmol/L Potassium (3.5-5.1) mmol/L Chloride (98-107) mmol/L Carbon Dioxide (21-32) mmol/L Anion Gap (3-11) BUN (7-18) mg/dl Creatinine (0.6-1.2) mg/dl Est Cr Clr Drug Dosing ml/min Est GFR ( Amer) Est GFR (Non-Af Amer) BUN/Creatinine Ratio (10-20) Glucose (70-99) mg/dl Lactate (0.4-2.0) mmol/L Calcium (8.5-10.1) mg/dl Phosphorus (2.5-4.9) mg/dl Magnesium (1.8-2.4) mg/dl Total Bilirubin (0.2-1) mg/dl Direct Bilirubin (0-0.2) mg/dl AST (15-37) U/L ALT (12-78) U/L Alkaline Phosphatase (45-117) U/L Troponin I (0-0.045) ng/ml Total Protein (6.4-8.2) gm/dl Albumin (3.4-5.0) gm/dl Globulin (2.5-4.0) gm/dl Albumin/Globulin Ratio (0.9-2) Lipase (73-393) U/L Procalcitonin (0-0.5) ng/ml Random Cortisol mcg/dl Nasal Screen MRSA (PCR) (Negative) Medications Administered Current Inpatient Medications Acetaminophen (Tylenol) 650 mg PO Q6H PRN PRN Reason: pain, headache or fever Stop: 05/24/19 16:53 Aspirin (Ecotrin Ectab) 81 mg PO QPM NATHANIEL Stop: 05/24/19 20:59 Atorvastatin Calcium (Lipitor) 40 mg PO PM NATHANIEL Stop: 05/24/19 20:59 Last Admin: 04/25/19 02:39 Dose: Not Given Documented by: Bisacodyl (Dulcolax) 10 mg OH DAILY PRN PRN Reason: Constipation or flatulance Stop: 05/24/19 16:53 Carisoprodol (Soma) 350 mg PO QPM NATHANIEL Stop: 05/24/19 20:59 Last Admin: 04/25/19 02:39 Dose: Not Given Documented by: Docusate Sodium (Colace) 100 mg PO BID NATHANIEL Stop: 05/24/19 20:59 Last Admin: 04/25/19 08:20 Dose: 100 mg Documented by: Ezetimibe (Zetia) 10 mg PO QPM NATHANIEL Stop: 05/24/19 20:59 Last Admin: 04/25/19 02:39 Dose: Not Given Documented by: Fluticasone Propionate (Flonase) 1 sprays NA DAILY NATHANIEL Stop: 05/25/19 08:59 Last Admin: 04/25/19 09:45 Dose: 1 sprays Documented by: Norepinephrine Bitartrate 8 mg (/ Dextrose) 508 mls @ 15.32 mls/hr IV .Q24H NATHANIEL; Protocol Stop: 05/25/19 09:14 Last Titration: 04/25/19 10:42 Dose: 0.05 mcg/kg/min, 15.3 mls/hr Documented by: Lactated Ringer's (Lr) 1,000 mls @ 999 mls/hr IV .Q1H1M ONE Stop: 04/25/19 11:44 Last Admin: 04/25/19 10:45 Dose: 999 mls/hr Documented by: Levothyroxine Sodium (Synthroid) 75 mcg PO QPM NATHANIEL Stop: 05/24/19 20:59 Last Admin: 04/25/19 02:39 Dose: Not Given Documented by: Magnesium Hydroxide (Milk Of Magnesia) 30 ml PO Q6H PRN PRN Reason: Constipation Stop: 05/24/19 16:53 Metoprolol Tartrate (Lopressor) 25 mg PO QPM NATHANIEL Stop: 05/24/19 20:59 Last Admin: 04/25/19 02:39 Dose: Not Given Documented by: Miscellaneous (Icu Protocol For Hyperglycemia) 1 ea N/A PRN PRN; Protocol PRN Reason: Hyperglycemia Protocol Stop: 04/27/19 00:41 Ondansetron HCl (Zofran) 4 mg IV Q6H PRN PRN Reason: Nausea And Vomiting Stop: 05/24/19 16:53 Oxycodone/Acetaminophen (Percocet 5mg/325mg) 1 tab PO Q4H PRN PRN Reason: Pain Scale 1,2,3,4,5 Stop: 05/08/19 16:53 Last Admin: 04/25/19 08:18 Dose: 1 tab Documented by: Oxycodone/Acetaminophen (Percocet 5mg/325mg) 2 tab PO Q4H PRN PRN Reason: Pain Scale 6,7,8,9,10 Stop: 05/08/19 16:53 Simethicone (Mylicon) 80 mg PO TID PRN PRN Reason: Gas Stop: 05/24/19 16:53 Ticagrelor (Brilinta) 90 mg PO BID NATHANIEL Stop: 05/25/19 11:59 Venlafaxine HCl (Effexor) 37.5 mg PO QPM NATHANIEL Stop: 05/24/19 20:59 Last Admin: 04/25/19 02:39 Dose: Not Given Documented by:
[2019-04-25] MEDS ORDERED: DOBUTamine / D5W 500 MG/250 ML BAG IV SCH (11:20)
--- NOTE | 2019-04-25 11:23 | XRay Report ---
XR chest 1V portable CLINICAL HISTORY: Chest pain. Shortness of breath. COMPARISON STUDY: Chest radiograph April 01, 2019 and April 25, 2019 6:35 AM. FINDINGS: Lung volumes are normal. There is no pneumothorax or pleural effusion. Cardiac size is norm al. Mediastinal contours are normal. There is no evidence for pulmonary edema. Surgical clips within the lower neck are noted. There is mild left basilar opacity. IMPRESSION: Mild left basilar opacity. This may reflect atelectasis or pneumonia. Electronically signed by: Dustin Mejía M.D. 04/25/2019 11:21 AM
[2019-04-25] MEDS ORDERED: DOBUTamine 500MG / 250ML D5W IV ONE (11:30)
[2019-04-25] MEDS ORDERED: PIPERACILLIN/TAZOBACTAM 3.375 GM in DEXTROSE 5% 100 ML IV SCH (12:00)
[2019-04-25] MEDS: TICAGRELOR 90 MG TAB PO SCH ×2 (12:01→21:09)
--- NOTE | 2019-04-25 12:35 | Gynecologic Progress Note ---
Date of Service Spoke with team and patient She had a few issues with levophed and it had to be stopped. Urine output improving, clear. Hb has dropped, some of that likely dilutional from fluid boluses, some from some post op oooze as well. April 25, 2019 Assessment & Plan (1) S/P hysterectomy with oophorectomy: Follow closely. Watch Hb Physical Exam Gastrointestinal (Abdomen): normal bowel sounds, soft, nontender, no hepatosplenomegaly (abdomen soft. No sig distension. BS+) Results & Data Vital Signs (Past 12 Hours) Vital Signs Temp Pulse Resp BP Pulse Ox 04/25/19 07:00 62 16 86/56 L 95 04/25/19 05:00 62 20 82/55 L 94 04/25/19 04:45 60 18 83/55 L 94 04/25/19 04:33 60 15 78/52 L 95 04/25/19 04:30 58 L 16 95 04/25/19 04:15 67 21 72/50 L 97 04/25/19 04:09 63 15 86/55 L 94 04/25/19 04:00 98.6 F 62 12 84/60 L 93 04/25/19 03:45 57 L 16 84/55 L 95 04/25/19 03:30 59 L 12 84/56 L 95 04/25/19 03:15 58 L 17 81/53 L 95 04/25/19 03:00 56 L 7 L 80/53 L 96 04/25/19 02:45 58 L 20 81/54 L 97 04/25/19 02:30 61 14 82/53 L 94 04/25/19 02:15 63 18 79/55 L 94 04/25/19 02:00 60 15 92/60 L 96 04/25/19 01:47 62 16 78/56 L 93 04/25/19 01:45 62 17 79/54 L 93 04/25/19 01:30 63 20 81/57 L 92 04/25/19 01:16 66 17 95 04/25/19 01:15 65 17 93/60 L 95 04/25/19 01:00 72 15 86/58 L 93 04/25/19 00:45 73 26 H 103/72 93 04/25/19 00:36 79 29 H 89/61 L 91 10/26/19 00:35 79 20 63/47 L 91 PG Care Time/CCT Total # of Minutes Spent Total Time Spent with Patient: Total time spent is greater than 50% in coordination of care (as documented) at patient's floor/unit and/or counseling patient:
--- NOTE | 2019-04-25 12:43 | Urology Progress Note ---
Date of Service April 25, 2019 Assessment & Plan (1) Status post bladder repair: A/P 58-year-old female postoperative day #1 status post robotic hysterectomy, extensive lysis of adhesions, repair of intraoperative cystotomy, hospital day #1 status post myocardial infarction and coronary stenting. Intraoperative urologic findings again reviewed with patient as well as postoperative plan/management. Ramos catheter x7 to 10 days with cystogram prior to trial of void. Should the patient remain in the hospital this can be performed at that time as well, otherwise will arrange as outpatient. Patient vocalizes good understanding of the treatment plan. Please contact our service with any questions or concerns. Subjective 58-year-old female postoperative day #1 status post robotic hysterectomy and repair of cystotomy. Her overnight events including myocardial infarction and coronary stenting are appreciated. Patient is currently resting comfortably in the ICU, does not recall our postoperative discussion yesterday due to anest hetic on board. Ramos catheter is draining clear yellow urine this morning. Patient notes fatigue due to her numerous recent health events but otherwise feels relatively well. Review of Systems Constitutional: no fever and no chills Eyes: no diplopia Ear, Nose, Mouth, Throat: no ear trauma Respiratory: no hemoptysis Cardiovascular: no dyspnea Gastrointestinal: no nausea and no vomiting Genitourinary: no hematuria Integumentary: no acne and no boil Neurologic: no paralysis Psychiatric: no hopelessness Allergy / Immunological: no tongue swelling Physical Exam Constitutional: well developed; no acute distress Eyes: eyes not dysmorphic ENMT: Ears: no external ear abnormality Neck: trachea midline; no anterior neck swelling Respiratory: no respiratory distress and does not use accessory muscles Cardiovascular: Vessels: radial pulses present Gastrointestinal (Abdomen): Inspection/Auscultation: abdomen not distended Percussion/Palpation: abdomen soft Musculoskeletal: Head/Neck/Chest: normocephalic and neck supple Skin: normal turgor Neurologic: awake; not obtunded Psychiatric: Orientation: oriented x 3 Lymphatic: no lymphadenopathy Results & Data Vital Signs (Past 12 Hours) Vital Signs Temp Pulse Resp BP Pulse Ox 04/25/19 07:00 62 16 86/56 L 95 04/25/19 05:00 62 20 82/55 L 94 04/25/19 04:45 60 18 83/55 L 94 04/25/19 04:33 60 15 78/52 L 95 04/25/19 04:30 58 L 16 95 04/25/19 04:15 67 21 72/50 L 97 04/25/19 04:09 63 15 86/55 L 94 04/25/19 04:00 37.0 C 62 12 84/60 L 93 04/25/19 03:45 57 L 16 84/55 L 95 04/25/19 03:30 59 L 12 84/56 L 95 04/25/19 03:15 58 L 17 81/53 L 95 04/25/19 03:00 56 L 7 L 80/53 L 96 04/25/19 02:45 58 L 20 81/54 L 97 04/25/19 02:30 61 14 82/53 L 94 04/25/19 02:15 63 18 79/55 L 94 04/25/19 02:00 60 15 92/60 L 96 04/25/19 01:47 62 16 78/56 L 93 04/25/19 01:45 62 17 79/54 L 93 04/25/19 01:30 63 20 81/57 L 92 04/25/19 01:16 66 17 95 04/25/19 01:15 65 17 93/60 L 95 04/25/19 01:00 72 15 86/58 L 93 04/25/19 00:45 73 26 H 103/72 93 Laboratory Results Laboratory Results - last 48 hr 04/24/19 04/24/19 04/24/19 19:52 20:22 20:22 WBC RBC Hgb 14.6 Hct 44.3 MCV MCH MCHC RDW Std Deviation RDW Coeff of Karthikeyan Plt Count MPV Immature Gran % (Auto) Neut % (Auto) Lymph % (Auto) [place] % (Auto) Eos % (Auto) Baso % (Auto) Immature Gran # (Auto) Neut # (Auto) Lymph # (Auto) [place] # (Auto) Eos # (Auto) Baso # (Auto) APTT PTT Ratio Sodium 139 Potassium 4.5 Chloride 107 Carbon Dioxide 24 Anion Gap 8.0 BUN 17 Creatinine 1.06 Est Cr Clr Drug Dosing 59.0 Est GFR ( Amer) 66.1 Est GFR (Non-Af Amer) 57.0 BUN/Creatinine Ratio 16.0 Glucose 160 H Lactate Calcium 8.3 L Phosphorus Magnesium 1.9 Total Bilirubin 0.3 Direct Bilirubin AST 50 H ALT 49 Alkaline Phosphatase 110 Troponin I 2.830 H* Total Protein 6.7 Albumin 3.4 Globulin 3.3 Albumin/Globulin Ratio 1.0 Lipase 132 Procalcitonin Random Cortisol Nasal Screen MRSA (PCR) 04/24/19 04/24/19 04/24/19 20:22 20:22 21:53 WBC RBC Hgb Hct MCV MCH MCHC RDW Std Deviation RDW Coeff of Karthikeyan Plt Count MPV Immature Gran % (Auto) Neut % (Auto) Lymph % (Auto) [place] % (Auto) Eos % (Auto) Baso % (Auto) Immature Gran # (Auto) Neut # (Auto) Lymph # (Auto) [place] # (Auto) Eos # (Auto) Baso # (Auto) APTT 25.6 PTT Ratio 0.9 Sodium Potassium Chloride Carbon Dioxide Anion Gap BUN Creatinine Est Cr Clr Drug Dosing Est GFR ( Amer) Est GFR (Non-Af Amer) BUN/Creatinine Ratio Glucose Lactate Calcium Phosphorus Magnesium Cancelled Total Bilirubin Direct Bilirubin AST ALT Alkaline Phosphatase Troponin I 8.380 H* Total Protein Albumin Globulin Albumin/Globulin Ratio Lipase Procalcitonin Random Cortisol Nasal Screen MRSA (PCR) 04/25/19 04/25/19 04/25/19 01:58 04:29 04:29 WBC 10.44 RBC 3.90 L Hgb 12.7 12.0 Hct 38.4 36.0 L MCV 92.3 MCH 30.8 MCHC 33.3 RDW Std Deviation 45.4 RDW Coeff of Karthikeyan 13.6 Plt Count 172 MPV 10.1 Immature Gran % (Auto) 0.2 Neut % (Auto) 78.4 Lymph % (Auto) 13.1 [place] % (Auto) 7.9 Eos % (Auto) 0.2 Baso % (Auto) 0.2 Immature Gran # (Auto) 0.02 Neut # (Auto) 8.19 H Lymph # (Auto) 1.37 [place] # (Auto) 0.82 H Eos # (Auto) 0.02 Baso # (Auto) 0.02 APTT PTT Ratio Sodium 139 Potassium 4.3 Chloride 107 Carbon Dioxide 27 Anion Gap 5.0 BUN 13 Creatinine 0.88 Est Cr Clr Drug Dosing 71.0 Est GFR ( Amer) 82.8 Est GFR (Non-Af Amer) 71.4 BUN/Creatinine Ratio 14.8 Glucose 118 H Lactate Calcium 7.6 L Phosphorus 3.1 Magnesium 1.8 Total Bilirubin 0.4 Direct Bilirubin 0.1 AST 293 H ALT 55 Alkaline Phosphatase 88 Troponin I 106.000 H* Total Protein 6.0 L Albumin 3.2 L Globulin Albumin/Globulin Ratio Lipase Procalcitonin Random Cortisol Nasal Screen MRSA (PCR) 04/25/19 04/25/19 04/25/19 04:29 04:29 05:42 WBC RBC Hgb Hct MCV MCH MCHC RDW Std Deviation RDW Coeff of Karthikeyan Plt Count MPV Immature Gran % (Auto) Neut % (Auto) Lymph % (Auto) [place] % (Auto) Eos % (Auto) Baso % (Auto) Immature Gran # (Auto) Neut # (Auto) Lymph # (Auto) [place] # (Auto) Eos # (Auto) Baso # (Auto) APTT PTT Ratio Sodium Potassium Chloride Carbon Dioxide Anion Gap BUN Creatinine Est Cr Clr Drug Dosing Est GFR ( Amer) Est GFR (Non-Af Amer) BUN/Creatinine Ratio Glucose Lactate 2.5 H* Calcium Phosphorus Magnesium Total Bilirubin Direct Bilirubin AST ALT Alkaline Phosphatase Troponin I Total Protein Albumin Globulin Albumin/Globulin Ratio Lipase Procalcitonin < 0.05 Random Cortisol 2.48 Nasal Screen MRSA (PCR) 04/25/19 04/25/19 04/25/19 09:50 09:50 09:50 WBC RBC Hgb 10.4 L Hct 31.0 L MCV MCH MCHC RDW Std Deviation RDW Coeff of Karthikeyan Plt Count MPV Immature Gran % (Auto) Neut % (Auto) Lymph % (Auto) [place] % (Auto) Eos % (Auto) Baso % (Auto) Immature Gran # (Auto) Neut # (Auto) Lymph # (Auto) [place] # (Auto) Eos # (Auto) Baso # (Auto) APTT PTT Ratio Sodium Potassium Chloride Carbon Dioxide Anion Gap BUN Creatinine Est Cr Clr Drug Dosing Est GFR ( Amer) Est GFR (Non-Af Amer) BUN/Creatinine Ratio Glucose Lactate 3.6 H* Calcium Phosphorus Magnesium Total Bilirubin Direct Bilirubin AST ALT Alkaline Phosphatase Troponin I 81.400 H* Total Protein Albumin Globulin Albumin/Globulin Ratio Lipase Procalcitonin Random Cortisol Nasal Screen MRSA (PCR) 04/25/19 Unknown WBC RBC Hgb Hct MCV MCH MCHC RDW Std Deviation RDW Coeff of Karthikeyan Plt Count MPV Immature Gran % (Auto) Neut % (Auto) Lymph % (Auto) [place] % (Auto) Eos % (Auto) Baso % (Auto) Immature Gran # (Auto) Neut # (Auto) Lymph # (Auto) [place] # (Auto) Eos # (Auto) Baso # (Auto) APTT PTT Ratio Sodium Potassium Chloride Carbon Dioxide Anion Gap BUN Creatinine Est Cr Clr Drug Dosing Est GFR ( Amer) Est GFR (Non-Af Amer) BUN/Creatinine Ratio Glucose Lactate Calcium Phosphorus Magnesium Total Bilirubin Direct Bilirubin AST ALT Alkaline Phosphatase Troponin I Total Protein Albumin Globulin Albumin/Globulin Ratio Lipase Procalcitonin Random Cortisol Nasal Screen MRSA (PCR) Negative PG Care Time/CCT Total # of Minutes Spent Total Time Spent with Patient: Total time spent is greater than 50% in coordination of care (as documented) at patient's floor/unit and/or counseling patient:
[2019-04-25] MEDS ORDERED: ICU ELECTROLYTE REPLACEMENT PROTOCOL PRN (14:09)
[2019-04-25 16:10] LABS: Hematocrit (blood only) 34.6 % (37-47); Hemoglobin 11.2 g/dL (12.0-16.0); Mean Corpuscular Hgb Conc 32.4 g/dL (32-36); Mean Corpuscular Volume 92.8 fL (80-100); Mean Platelet Volume 10.5 fL (7.4-10.4); Platelet Count 150 K/uL (130-400); RDW Coefficient of Variation 13.9 % (11.5-14.5); RDW Standard Deviation 47.3 fL (36.4-46.3); Red Blood Count 3.73 M/uL (4.2-5.4); White Blood Count 7.24 K/uL (4.8-10.8)
[2019-04-25] MEDS ORDERED: TICAGRELOR 90 MG TAB PO SCH (21:00)
[2019-04-25] MEDS: ASPIRIN 81 MG ECTAB PO SCH (21:09)
[2019-04-26] MEDS: OXYCODONE/ACETAMINOPHEN 5mg/325mg TAB PO PRN ×4 (02:11→21:08)
[2019-04-26 05:05] LABS: Basophils # (auto) 0.02 K/uL (0-0.2); Basophils % (auto) 0.3 %; Eosinophils # (auto) 0.12 K/uL (0-0.5); Eosinophils % (auto) 1.5 %; Hematocrit (blood only) 32.1 % (37-47); Hemoglobin 10.6 g/dL (12.0-16.0); Immature Granulocytes # (auto) 0.01 K/uL (0.00-0.02); Immature Granulocytes % (auto) 0.1 %; Lymphocytes # (auto) 2.22 K/uL (1.2-3.4); Lymphocytes % (auto) 27.9 %; Mean Corpuscular Hemoglobin 30.4 pg (25-34); Mean Platelet Volume 10.4 fL (7.4-10.4); Monocytes # (auto) 0.62 K/uL (0.11-0.59); Monocytes % (auto) 7.8 %; Neutrophils # (auto) 4.97 K/uL (1.4-6.5); Neutrophils % (auto) 62.4 %; Platelet Count 140 K/uL (130-400); RDW Standard Deviation 47.3 fL (36.4-46.3); Red Blood Count 3.49 M/uL (4.2-5.4); White Blood Count 7.96 K/uL (4.8-10.8)
[2019-04-26 05:33] LABS: BUN Creatinine Ratio 13.8 (10-20); Calcium 7.7 mg/dl (8.5-10.1); Creatinine Clr Calc Pharmacy 98.4 ml/min; Est GFR (African American) 109.7; Est GFR (Non-African American) 94.6; Potassium 3.6 mmol/L (3.5-5.1)
--- NOTE | 2019-04-26 05:54 | Critical Care Progress Note ---
Date of Service April 26, 2019 Assessment & Plan (1) Admitted to intensive care unit: Reason Critically Ill: 58-year-old female s/p total hysterectomy with inferior STEMI, post stent placement in RCA. ICU monitoring currently for hypotension. Neuro CAM ICU: Negative pain management postop per primary team Cardiac STEMI -patient experienced chest pain after surgery and was found to have ST elevation in inferior leads -S/P cardiac cath with stent x2 to RCA with immediate relief of chest pain -trops have peaked and are downtrending -trending EKG -Echo with EF of 50-55%, severe hypokinesis of inferior wall, septum -Hypotension has been treated with dobutamine and fluids -BPs have improved, will d/c both, continue to monitor trend off of fluids and pressor -Continue ASA, Lipitor, Brilinta -Appreciate cardiology recs AAA -followed as outpatient, reportedly grew from 3.5 cm to 4 cm over the past year -advise no fluoroquinolone use, close BP monitoring to avoid hypertension. Respiratory -Currently on room air, saturating well -chest XR with no evidence of fluid overload. GI -Heart healthy diet -No BM yet postop, management per primary team RENAL/LYTES -Creatinine and electrolytes stable -will monitor with routine BMPs Hx of HSILstatus post total hysterectomy 04/24, reportedly extensive surgery with numerous adhesions, bladder repair -management postop per primary obgyn/general surgery/Urology -Of note, Ramos left in place and per Urology plan is to leave for 7 to 10 days and follow-up outpatient. -Strict I's and O's- good urine output currently. ENDO No history diabetes Continue home dose Synthroid HEME H&H downtrending--currently stable at around 10 will continue to monitor ID No suspicion for infectious process at this time Given Hx of AAA, important to avoid fluoroquinolone use. PIVs Full Code DVT PROPHYLAXIS -SCDs Dispo: ICU for monitoring (2) Status post bladder repair: (3) PVD (peripheral vascular disease): (4) STEMI (ST elevation myocardial infarction): Supervising Physician Co-Signing Physician Notes Dr. Damon was the resident-physician during care of patient. I separately evaluated patient for marcus portions of the history and the exam. I was present during the critical portion of medical decision making, and I discussed the case with the resident. I generally agree with the findings and plan except for any additions/exceptions noted. Patient doing much better today. We have stopped her dobutamine drip as of this morning. She is making good urine output and is maintaining her blood pressure. Radiology is following and appreciate their assistance. Replenishing potassium phosphate today. Continue statin, Zetia and Brilinta. Continue aspirin. Held her metoprolol last night given that she was on dobutamine. Reinstitute low- dose metoprolol later today/tonight if she maintains her blood pressures. Gynecology is following her for a recent hysterectomy. She has not passed any flatus as of yet. She has been started on MiraLAX and Dulcolax. Urology is following as well who will continue the Ramos as per the recommendations given her bladder trauma that she sustained during surgery. Keep in the ICU for today and likely downgrade tomorrow morning. Subjective Pt states she feels well except for some abdominal pain. Denies BLEVINS, blurry vision, cough, runny nose, chest pain, SOB, palpitations, diarrhea, constipation, swelling in hands or feet. Review of Systems Review of Systems: All systems reviewed & are unremarkable except as noted in HPI & below Physical Exam Physical Exam: General: Alert, oriented. Resting in bed. Skin: No noted rashes or bruises Psych: Appropriate mood and affect Neuro: No gross deficits HEENT: NC/AT Chest: Nontender to palpation. CV: RRR, Normal s1, s2. No murmurs appreciated Resp: Breath sounds with some faint crackles on the back, no increased effort of breathing. Abdomen: Soft, tender. Extremities: No edema in lower extremities bilaterally. MSK: Moves all extremities appropriately. Results & Data Vital Signs (Past 12 Hours) Vital Signs Temp Pulse Resp BP Pulse Ox 04/26/19 04:30 82 13 94 04/26/19 04:15 81 12 95 04/26/19 04:00 37.3 C 65 18 84/46 L 93 04/26/19 03:45 72 23 92 04/26/19 03:30 67 16 93 04/26/19 03:15 80 22 95 04/26/19 03:00 72 16 123/60 95 04/26/19 02:45 67 16 94 04/26/19 02:30 74 19 95 04/26/19 02:15 73 24 95 04/26/19 02:00 71 12 128/63 94 04/26/19 01:45 77 8 L 94 04/26/19 01:30 75 12 95 04/26/19 01:15 73 15 94 04/26/19 01:00 72 12 120/59 L 94 04/26/19 00:45 70 12 92 04/26/19 00:30 77 11 L 95 04/26/19 00:15 67 16 92 04/26/19 00:00 37.1 C 84 22 117/58 L 94 04/25/19 23:45 89 13 94 04/25/19 23:30 78 15 93 04/25/19 23:15 81 11 L 95 04/25/19 23:00 70 14 124/60 92 04/25/19 22:45 74 17 93 04/25/19 22:30 76 18 93 04/25/19 22:15 74 12 96 04/25/19 22:00 75 16 127/70 95 04/25/19 21:45 72 15 96 04/25/19 21:30 65 20 96 04/25/19 21:15 78 17 95 04/25/19 21:00 73 14 139/67 96 04/25/19 20:58 77 13 123/66 96 04/25/19 20:00 66 16 96 04/25/19 19:00 68 14 97 04/25/19 18:18 36.9 C 79 19 117/49 L 97 04/25/19 18:00 83 18 95 Laboratory Results Laboratory Results - last 24 hr 04/25/19 04/25/19 04/25/19 04:29 09:50 09:50 WBC RBC Hgb Hct MCV MCH MCHC RDW Std Deviation RDW Coeff of Karthikeyan Plt Count MPV Immature Gran % (Auto) Neut % (Auto) Lymph % (Auto) [place] % (Auto) Eos % (Auto) Baso % (Auto) Immature Gran # (Auto) Neut # (Auto) Lymph # (Auto) [place] # (Auto) Eos # (Auto) Baso # (Auto) Sodium Potassium Chloride Carbon Dioxide Anion Gap BUN Creatinine Est Cr Clr Drug Dosing Est GFR ( Amer) Est GFR (Non-Af Amer) BUN/Creatinine Ratio Glucose Lactate 3.6 H* Calcium Phosphorus Magnesium Troponin I 81.400 H* Random Cortisol 2.48 10/04/25/19 04/25/19 09:50 12:16 14:12 WBC RBC Hgb 10.4 L Hct 31.0 L MCV MCH MCHC RDW Std Deviation RDW Coeff of Karthikeyan Plt Count MPV Immature Gran % (Auto) Neut % (Auto) Lymph % (Auto) [place] % (Auto) Eos % (Auto) Baso % (Auto) Immature Gran # (Auto) Neut # (Auto) Lymph # (Auto) [place] # (Auto) Eos # (Auto) Baso # (Auto) Sodium Potassium Chloride Carbon Dioxide Anion Gap BUN Creatinine Est Cr Clr Drug Dosing Est GFR ( Amer) Est GFR (Non-Af Amer) BUN/Creatinine Ratio Glucose Lactate 2.6 H* Calcium Phosphorus Magnesium Troponin I 75.100 H* Random Cortisol 04/25/19 04/26/19 04/26/19 16:02 04:51 04:51 WBC 7.24 7.96 RBC 3.73 L 3.49 L Hgb 11.2 L 10.6 L Hct 34.6 L 32.1 L MCV 92.8 92.0 MCH 30.0 30.4 MCHC 32.4 33.0 RDW Std Deviation 47.3 H 47.3 H RDW Coeff of Karthikeyan 13.9 14.0 Plt Count 150 140 MPV 10.5 H 10.4 Immature Gran % (Auto) 0.1 Neut % (Auto) 62.4 Lymph % (Auto) 27.9 [place] % (Auto) 7.8 Eos % (Auto) 1.5 Baso % (Auto) 0.3 Immature Gran # (Auto) 0.01 Neut # (Auto) 4.97 Lymph # (Auto) 2.22 [place] # (Auto) 0.62 H Eos # (Auto) 0.12 Baso # (Auto) 0.02 Sodium 144 Potassium 3.6 D Chloride 114 H Carbon Dioxide 26 Anion Gap 4.0 BUN 10 Creatinine 0.69 Est Cr Clr Drug Dosing 98.4 Est GFR ( Amer) 109.7 Est GFR (Non-Af Amer) 94.6 BUN/Creatinine Ratio 13.8 Glucose 98 Lactate Calcium 7.7 L Phosphorus 2.0 L D Magnesium 2.0 Troponin I Random Cortisol Medications Administered Home Medications ezetimibe 10 mg tablet 10 mg PO QPM tab 01/26/19 [History Confirmed 04/24/19] levothyroxine 75 mcg tablet 75 mcg PO QPM tab 01/26/19 [History Confirmed 04/24/19] lorazepam 0.5 mg tablet 0.5 mg PO HS PRN tab 01/26/19 [History Confirmed 04/24/19] aspirin [Aspirin Low Dose] 81 mg PO QPM 03/27/19 [History Confirmed 04/24/19] atorvastatin 40 mg PO PM 03/27/19 [History Confirmed 04/24/19] metoprolol tartrate 25 mg PO QPM 03/27/19 [History Confirmed 04/24/19] venlafaxine 37.5 mg PO QPM 03/27/19 [History Confirmed 04/24/19] diphenhydramine 25 mg capsule 25 mg PO Q8H PRN 04/01/19 [History Confirmed 04/24/19] fluticasone propionate 50 mcg/actuation nasal spray,suspension 1 sprays INTNAS DAILY 04/01/19 [History Confirmed 04/24/19] oxycodone-acetaminophen 5 mg-325 mg tablet 1 tab PO TID PRN #10 tab 04/01/19 [Rx Confirmed 04/24/19] carisoprodol [Soma] 350 mg PO QID 04/24/19 [History Confirmed 04/24/19] Active Medications Acetaminophen (Tylenol) 650 mg PO Q6H PRN PRN Reason: pain, headache or fever Stop: 05/24/19 16:53 Aspirin (Ecotrin Ectab) 81 mg PO QPM NATHANIEL Stop: 05/24/19 20:59 Last Admin: 04/25/19 21:09 Dose: 81 mg Documented by: Atorvastatin Calcium (Lipitor) 40 mg PO PM NATHANIEL Stop: 05/24/19 20:59 Last Admin: 04/25/19 21:09 Dose: 40 mg Documented by: Bisacodyl (Dulcolax) 10 mg [place] DAILY PRN PRN Reason: Constipation or flatulance Stop: 05/24/19 16:53 Carisoprodol (Soma) 350 mg PO QPM NATHANIEL Stop: 05/24/19 20:59 Last Admin: 04/25/19 21:08 Dose: 350 mg Documented by: Docusate Sodium (Colace) 100 mg PO BID NATHANIEL Stop: 05/24/19 20:59 Last Admin: 04/25/19 21:11 Dose: 100 mg Documented by: Ezetimibe (Zetia) 10 mg PO QPM NATHANIEL Stop: 05/24/19 20:59 Last Admin: 04/25/19 21:09 Dose: 10 mg Documented by: Fluticasone Propionate (Flonase) 1 sprays NA DAILY NATHANIEL Stop: 05/25/19 08:59 Last Admin: 04/25/19 09:45 Dose: 1 sprays Documented by: Dobutamine HCl/Dextrose (Dobutamine / D5w) 500 mg in 250 mls @ 6.03 mls/hr IV .Q24H NATHANIEL; Protocol Stop: 05/25/19 11:19 Last Titration: 04/25/19 18:55 Dose: 2.5 mcg/kg/min, 6 mls/hr Documented by: Lactated Ringer's (Lr) 1,000 mls @ 100 mls/hr IV .Q10H NATHANIEL Stop: 05/25/19 12:14 Last Admin: 04/25/19 22:19 Dose: 100 mls/hr Documented by: Potassium Phosphate 21 mmol/ (Sodium Chloride) 507 mls @ 88 mls/hr IV ONE ONE Stop: 04/26/19 12:15 Last Admin: 04/26/19 06:38 Dose: 88 mls/hr Documented by: Levothyroxine Sodium (Synthroid) 75 mcg PO QPM NATHANIEL Stop: 05/24/19 20:59 Last Admin: 04/25/19 21:09 Dose: 75 mcg Documented by: Magnesium Hydroxide (Milk Of Magnesia) 30 ml PO Q6H PRN PRN Reason: Constipation Stop: 05/24/19 16:53 Miscellaneous ([facility] Protocol For Hyperglycemia) 1 ea N/A PRN PRN; Protocol PRN Reason: Hyperglycemia Protocol Stop: 04/27/19 00:41 Miscellaneous ([facility] Electrolyte Replacement Protocol) 1 ea N/A UD PRN PRN Reason: for e-lyte repletion Stop: 05/02/19 14:08 Ondansetron HCl (Zofran) 4 mg IV Q6H PRN PRN Reason: Nausea And Vomiting Stop: 05/24/19 16:53 Last Admin: 04/25/19 11:05 Dose: 4 mg Documented by: Oxycodone/Acetaminophen (Percocet 5mg/325mg) 1 tab PO Q4H PRN PRN Reason: Pain Scale 1,2,3,4,5 Stop: 05/08/19 16:53 Last Admin: 04/26/19 02:11 Dose: 1 tab Documented by: Oxycodone/Acetaminophen (Percocet 5mg/325mg) 2 tab PO Q4H PRN PRN Reason: Pain Scale 6,7,8,9,10 Stop: 05/08/19 16:53 Simethicone (Mylicon) 80 mg PO TID PRN PRN Reason: Gas Stop: 05/24/19 16:53 Ticagrelor (Brilinta) 90 mg PO BID NATHANIEL Stop: 05/25/19 11:59 Last Admin: 04/25/19 21:09 Dose: 90 mg Documented by: Venlafaxine HCl (Effexor) 37.5 mg PO QPM [facility] Stop: 05/24/19 20:59 Last Admin: 04/25/19 18:37 Dose: 37.5 mg Documented by: PG Care Time/CCT Total # of Minutes Spent Total Time Spent with Patient: Total time spent is greater than 50% in coordination of care (as documented) at patient's floor/unit and/or counseling patient: Resident Activity Tracking Resident Involvement: Resident Care Provided Care Provided: Adult Hospital Medicine
[2019-04-26] MEDS ORDERED: POTASSIUM PHOS 3 MMOL/1 ML INFUSION IV STA (06:10)
[2019-04-26] MEDS ORDERED: POTASSIUM PHOSPHATE 21 MMOL in SODIUM CHLORIDE 0.9% 500 ML IV ONE (06:30)
--- NOTE | 2019-04-26 07:02 | Progress Note ---
Date of Service April 26, 2019 Assessment & Plan (1) S/P hysterectomy with oophorectomy: pts vitals stable had good night- sleeping comfortably at present will check again later this am- cont clear liquids for now mobility per med/cardio team- may walk per surgery Results & Data Vital Signs (Past 12 Hours) Vital Signs Temp Pulse Resp BP Pulse Ox 04/26/19 04:30 82 13 94 04/26/19 04:15 81 12 95 04/26/19 04:00 37.3 C 65 18 84/46 L 93 04/26/19 03:45 72 23 92 04/26/19 03:30 67 16 93 04/26/19 03:15 80 22 95 04/26/19 03:00 72 16 123/60 95 04/26/19 02:45 67 16 94 04/26/19 02:30 74 19 95 04/26/19 02:15 73 24 95 04/26/19 02:00 71 12 128/63 94 04/26/19 01:45 77 8 L 94 04/26/19 01:30 75 12 95 04/26/19 01:15 73 15 94 04/26/19 01:00 72 12 120/59 L 94 04/26/19 00:45 70 12 92 04/26/19 00:30 77 11 L 95 04/26/19 00:15 67 16 92 04/26/19 00:00 37.1 C 84 22 117/58 L 94 04/25/19 23:45 89 13 94 04/25/19 23:30 78 15 93 04/25/19 23:15 81 11 L 95 04/25/19 23:00 70 14 124/60 92 04/25/19 22:45 74 17 93 04/25/19 22:30 76 18 93 04/25/19 22:15 74 12 96 04/25/19 22:00 75 16 127/70 95 04/25/19 21:45 72 15 96 04/25/19 21:30 65 20 96 04/25/19 21:15 78 17 95 04/25/19 21:00 73 14 139/67 96 04/25/19 20:58 77 13 123/66 96 04/25/19 20:00 66 16 96 04/25/19 19:00 68 14 97 PG Care Time/CCT Total # of Minutes Spent Total Time Spent with Patient: Total time spent is greater than 50% in coordination of care (as documented) at patient's floor/unit and/or counseling patient:
[2019-04-26] MEDS: TICAGRELOR 90 MG TAB PO SCH ×2 (08:19→21:07)
[2019-04-26] MEDS: LACTATED RINGER'S 1,000 ML IV SCH (08:19)
[2019-04-26] MEDS: FLUTICASONE PROPIONATE NA SPR 16 GM BTL SCH (08:20)
[2019-04-26] MEDS: DOCUSATE SODIUM 100 MG CAP PO SCH ×2 (08:24→21:08)
[2019-04-26] MEDS ORDERED: BISACODYL 10 MG SUPP PR PRN (08:51)
[2019-04-26] MEDS ORDERED: POLYETHYLENE (MIRALAX) 17 GM PACK ONE (08:51)
--- NOTE | 2019-04-26 08:51 | Gynecologic Progress Note ---
Date of Service Postop day #2 from extended laparoscopic hysterectomy due to severe adhesions and then subsequent cardiac event postoperative. Patient currently in the ICU she is doing well post cardiac catheterization she states she has no chest pain she feels rumbling in her abdomen she has an appetite however she has not passed gas or had a bowel movement yet patient currently has a catheter in place due to a intraoperative cystotomy April 26, 2019 Assessment & Plan (1) S/P hysterectomy with oophorectomy: Patient has stabilized with regard to her hemoglobin she has not passed flatus yet so I will try and initiate a bowel routine. She will continue in the ICU per her team and management guidelines for the cardiac team will continue her catheter in place for at least a week to 10 days pending urology follow-up. Spent extensive time talking with the patient about her situation and answered all her questions. Physical Exam Constitutional: WD/WN, vitals as above Gastrointestinal (Abdomen): normal bowel sounds, soft, nontender, no hepatosplenomegaly (Abdomen is soft minimally tender not distended significantly) Results & Data Vital Signs (Past 12 Hours) Vital Signs Temp Pulse Resp BP Pulse Ox 04/26/19 04:30 82 13 94 04/26/19 04:15 81 12 95 04/26/19 04:00 99.1 F 65 18 84/46 L 93 04/26/19 03:45 72 23 92 04/26/19 03:30 67 16 93 04/26/19 03:15 80 22 95 04/26/19 03:00 72 16 123/60 95 04/26/19 02:45 67 16 94 04/26/19 02:30 74 19 95 04/26/19 02:15 73 24 95 04/26/19 02:00 71 12 128/63 94 04/26/19 01:45 77 8 L 94 04/26/19 01:30 75 12 95 04/26/19 01:15 73 15 94 04/26/19 01:00 72 12 120/59 L 94 04/26/19 00:45 70 12 92 04/26/19 00:30 77 11 L 95 04/26/19 00:15 67 16 92 04/26/19 00:00 98.8 F 84 22 117/58 L 94 04/25/19 23:45 89 13 94 04/25/19 23:30 78 15 93 04/25/19 23:15 81 11 L 95 04/25/19 23:00 70 14 124/60 92 04/25/19 22:45 74 17 93 04/25/19 22:30 76 18 93 04/25/19 22:15 74 12 96 04/25/19 22:00 75 16 127/70 95 04/25/19 21:45 72 15 96 04/25/19 21:30 65 20 96 04/25/19 21:15 78 17 95 04/25/19 21:00 73 14 139/67 96 04/25/19 20:58 77 13 123/66 96 PG Care Time/CCT Total # of Minutes Spent Total Time Spent with Patient: Total time spent is greater than 50% in coordination of care (as documented) at patient's floor/unit and/or counseling patient:
--- NOTE | 2019-04-26 08:55 | Cardiology Progress Note ---
Date of Service April 26, 2019 Assessment & Plan (1) STEMI (ST elevation myocardial infarction): (2) S/P hysterectomy with oophorectomy: (3) PVD (peripheral vascular disease): (4) AAA (abdominal aortic aneurysm): The patient is clinically stable. Believe that we can try stopping the do butamine and IV fluids today. At this point I think she is well hydrated. Continue to monitor on telemetry. Echocardiogram reveals a inferior wall infarct. Hopefully this is stunned myocardium that will recover post stenting. Subjective The patient is sitting comfortably in a chair. No cardiac complaints. Blood pressure is adequate. She is starting to eat solid food. Review of Systems Review of Systems: All systems reviewed & are unremarkable except as noted in HPI & below Nothing additional to add. Physical Exam Physical Exam: General: no acute distress and stated age Head: normocephalic, no masses, lesions, tenderness or abnormalities Eyes: conjunctiva are pink and non-injected, sclera clear Neck: supple, no adenopathy, no bruits, normal jugular venous pulse, no hepatojugular reflux Chest: normal shape and normal respiratory effort Lungs: clear to auscultation and percussion Cardiac Exam: - regular rate & rhythm, no murmurs gallops or rubs - normal S1, normal S2 Pulses: 2(+) throughout Abdomen: abdomen soft, non-tender, no abnormal masses and no hepatosplenomegaly Musculoskeletal: no gait disturbance, no joint inflammation, no deforming arthritis Extremities: no edema and no cyanosis Neuro: grossly normal exam Results & Data Vital Signs (Past 12 Hours) Vital Signs Temp Pulse Resp BP Pulse Ox 04/26/19 04:30 82 13 94 04/26/19 04:15 81 12 95 04/26/19 04:00 37.3 C 65 18 84/46 L 93 04/26/19 03:45 72 23 92 04/26/19 03:30 67 16 93 04/26/19 03:15 80 22 95 04/26/19 03:00 72 16 123/60 95 04/26/19 02:45 67 16 94 04/26/19 02:30 74 19 95 04/26/19 02:15 73 24 95 04/26/19 02:00 71 12 128/63 94 04/26/19 01:45 77 8 L 94 04/26/19 01:30 75 12 95 04/26/19 01:15 73 15 94 04/26/19 01:00 72 12 120/59 L 94 04/26/19 00:45 70 12 92 04/26/19 00:30 77 11 L 95 04/26/19 00:15 67 16 92 04/26/19 00:00 37.1 C 84 22 117/58 L 94 04/25/19 23:45 89 13 94 04/25/19 23:30 78 15 93 04/25/19 23:15 81 11 L 95 04/25/19 23:00 70 14 124/60 92 04/25/19 22:45 74 17 93 04/25/19 22:30 76 18 93 04/25/19 22:15 74 12 96 04/25/19 22:00 75 16 127/70 95 04/25/19 21:45 72 15 96 04/25/19 21:30 65 20 96 04/25/19 21:15 78 17 95 04/25/19 21:00 73 14 139/67 96 04/25/19 20:58 77 13 123/66 96 Laboratory Results Laboratory Results - last 24 hr 04/25/19 04/25/19 04/25/19 09:50 09:50 09:50 WBC RBC Hgb 10.4 L Hct 31.0 L MCV MCH MCHC RDW Std Deviation RDW Coeff of Karthikeyan Plt Count MPV Immature Gran % (Auto) Neut % (Auto) Lymph % (Auto) [place] % (Auto) Eos % (Auto) Baso % (Auto) Immature Gran # (Auto) Neut # (Auto) Lymph # (Auto) [place] # (Auto) Eos # (Auto) Baso # (Auto) Sodium Potassium Chloride Carbon Dioxide Anion Gap BUN Creatinine Est Cr Clr Drug Dosing Est GFR ( Amer) Est GFR (Non-Af Amer) BUN/Creatinine Ratio Glucose Lactate 3.6 H* Calcium Phosphorus Magnesium Troponin I 81.400 H* 04/25/19 04/25/19 04/25/19 12:16 14:12 16:02 WBC 7.24 RBC 3.73 L Hgb 11.2 L Hct 34.6 L MCV 92.8 MCH 30.0 MCHC 32.4 RDW Std Deviation 47.3 H RDW Coeff of Karthikeyan 13.9 Plt Count 150 MPV 10.5 H Immature Gran % (Auto) Neut % (Auto) Lymph % (Auto) [place] % (Auto) Eos % (Auto) Baso % (Auto) Immature Gran # (Auto) Neut # (Auto) Lymph # (Auto) [place] # (Auto) Eos # (Auto) Baso # (Auto) Sodium Potassium Chloride Carbon Dioxide Anion Gap BUN Creatinine Est Cr Clr Drug Dosing Est GFR ( Amer) Est GFR (Non-Af Amer) BUN/Creatinine Ratio Glucose Lactate 2.6 H* Calcium Phosphorus Magnesium Troponin I 75.100 H* 04/26/19 04/26/19 04:51 04:51 WBC 7.96 RBC 3.49 L Hgb 10.6 L Hct 32.1 L MCV 92.0 MCH 30.4 MCHC 33.0 RDW Std Deviation 47.3 H RDW Coeff of Karthikeyan 14.0 Plt Count 140 MPV 10.4 Immature Gran % (Auto) 0.1 Neut % (Auto) 62.4 Lymph % (Auto) 27.9 [place] % (Auto) 7.8 Eos % (Auto) 1.5 Baso % (Auto) 0.3 Immature Gran # (Auto) 0.01 Neut # (Auto) 4.97 Lymph # (Auto) 2.22 [place] # (Auto) 0.62 H Eos # (Auto) 0.12 Baso # (Auto) 0.02 Sodium 144 Potassium 3.6 D Chloride 114 H Carbon Dioxide 26 Anion Gap 4.0 BUN 10 Creatinine 0.69 Est Cr Clr Drug Dosing 98.4 Est GFR ( Amer) 109.7 Est GFR (Non-Af Amer) 94.6 BUN/Creatinine Ratio 13.8 Glucose 98 Lactate Calcium 7.7 L Phosphorus 2.0 L D Magnesium 2.0 Troponin I Medications Administered Current Inpatient Medications Acetaminophen (Tylenol) 650 mg PO Q6H PRN PRN Reason: pain, headache or fever Stop: 05/24/19 16:53 Aspirin (Ecotrin Ectab) 81 mg PO QPM NATHANIEL Stop: 05/24/19 20:59 Last Admin: 04/25/19 21:09 Dose: 81 mg Documented by: Atorvastatin Calcium (Lipitor) 40 mg PO PM NATHANIEL Stop: 05/24/19 20:59 Last Admin: 04/25/19 21:09 Dose: 40 mg Documented by: Bisacodyl (Dulcolax) 10 mg [place] DAILY PRN PRN Reason: Constipation or flatulance Stop: 05/24/19 16:53 Bisacodyl (Dulcolax) 10 mg SD Q12 PRN PRN Reason: Constipation Stop: 05/26/19 08:50 Carisoprodol (Soma) 350 mg PO QPM [facility] Stop: 05/24/19 20:59 Last Admin: 04/25/19 21:08 Dose: 350 mg Documented by: Docusate Sodium (Colace) 100 mg PO BID NATHANIEL Stop: 05/24/19 20:59 Last Admin: 04/26/19 08:24 Dose: 100 mg Documented by: Ezetimibe (Zetia) 10 mg PO QPM NATHANIEL Stop: 05/24/19 20:59 Last Admin: 04/25/19 21:09 Dose: 10 mg Documented by: Fluticasone Propionate (Flonase) 1 sprays NA DAILY [facility] Stop: 05/25/19 08:59 Last Admin: 04/26/19 08:20 Dose: 1 sprays Documented by: Potassium Phosphate 21 mmol/ (Sodium Chloride) 507 mls @ 88 mls/hr IV ONE ONE Stop: 04/26/19 12:15 Last Admin: 04/26/19 06:38 Dose: 88 mls/hr Documented by: Levothyroxine Sodium (Synthroid) 75 mcg PO QPM NATHANIEL Stop: 05/24/19 20:59 Last Admin: 04/25/19 21:09 Dose: 75 mcg Documented by: Magnesium Hydroxide (Milk Of Magnesia) 30 ml PO Q6H PRN PRN Reason: Constipation Stop: 05/24/19 16:53 Miscellaneous ([facility] Protocol For Hyperglycemia) 1 ea N/A PRN PRN; Protocol PRN Reason: Hyperglycemia Protocol Stop: 04/27/19 00:41 Miscellaneous ([facility] Electrolyte Replacement Protocol) 1 ea N/A UD PRN PRN Reason: for e-lyte repletion Stop: 05/02/19 14:08 Ondansetron HCl (Zofran) 4 mg IV Q6H PRN PRN Reason: Nausea And Vomiting Stop: 05/24/19 16:53 Last Admin: 04/25/19 11:05 Dose: 4 mg Documented by: Oxycodone/Acetaminophen (Percocet 5mg/325mg) 1 tab PO Q4H PRN PRN Reason: Pain Scale 1,2,3,4,5 Stop: 05/08/19 16:53 Last Admin: 04/26/19 08:20 Dose: 1 tab Documented by: Oxycodone/Acetaminophen (Percocet 5mg/325mg) 2 tab PO Q4H PRN PRN Reason: Pain Scale 6,7,8,9,10 Stop: 05/08/19 16:53 Simethicone (Mylicon) 80 mg PO TID PRN PRN Reason: Gas Stop: 05/24/19 16:53 Ticagrelor (Brilinta) 90 mg PO BID [facility] Stop: 05/25/19 11:59 Last Admin: 04/26/19 08:19 Dose: 90 mg Documented by: Venlafaxine HCl (Effexor) 37.5 mg PO QPM [facility] Stop: 05/24/19 20:59 Last Admin: 04/25/19 18:37 Dose: 37.5 mg Documented by:
--- NOTE | 2019-04-26 10:29 | Hospitalist Progress Note ---
Date of Service April 26, 2019 Assessment & Plan (1) STEMI (ST elevation myocardial infarction): 58 y/o F with a PMH of AAA, PVD s/p left SFA stenting in 2013, tobacco use disorder, dyslipidemia who is POD#1 s/p robotic total laparoscopic hysterectomy, left salpingectomy, extensive lysis of adhesions who developed postoperative chest pain and was found to have an inferior wall STEMI. -Post op shoulder pain migrated to central 10/10 chest pain with associated nausea -Patient with significant family history of premature CAD, lifelong smoker -EKG revealed acute ST elevations in inferior leads. Initial troponin elevated at 2.8. CXR without acute abnormalities -cardiology was contacted and pt underwent cardiac cath, now s/p PCI of distal RCA w/2 overlapping bare-metal stents, on brillinta and ASA -plan to uptitrate beta-marcello, start ACEi as BP permits -pt hypotensive yesterday, received 3L of IVF,was then started on dobutamine, IVF and dobutamine d/c'ed this AM -Patient is in ICU for close hemodynamic monitoring and medical management Echo: LV normal in size, severe inferior wall hypokinesis, severe septal hypokinesis, EF 50 to 55%, RV systolic function normal, LA and RA size normal, no significant valvular pathology. (2) S/P hysterectomy with oophorectomy: POD#2 s/p robotic total laparoscopic hysterectomy, left salpingectomy, extensive lysis of adhesions by Dr. Orozco -Mgmt per obgyn Anemia normocytic Hgb 10.6,secondary to intraop. blood loss, and dilutional will cont. to monitor, Hgb goal>8 Anxiety/Depression - cont. home effexor - understandably, pt more anxious after having major med.events - today pt is more calm and feeling more positive, daughter visited her yesterday which also helped Constipation - pt is passing (3) AAA (abdominal aortic aneurysm): Follows with Dr. Acosta for 4 cm AAA -diameter increased from 3.5 cm one year ago -Abdominal aortic duplex report 12/2018: There is evidence of a 4.0 centimeter abdominal aortic aneurysm. Color Doppler imaging demonstrates flow consistent with a patent lumen at and distal to the aortic aneurysm. (4) PVD (peripheral vascular disease): Peripheral vascular disease with history of left SFA stenting 05/2014 with angioplasty for restenosis in 2014 while living in [place], [place] Code status: FULL PCP: Misha Acosta Subjective Patient is lying in bed, in no acute distress, appears very comfortable, feeling much better than yesterday. Says she was able to get up from bed and she has been passing flatus, no BM yet. Denies any chest pain, shortness of breath, fevers, chills, nausea or vomiting. She still has some abdominal pain with movement which is understandable given her recent surgery. BP better controlled now and dobutamine and IV fluids were discontinued this morning. Review of Systems Review of Systems: At least ten systems reviewed and negative except as noted in the HPI. Respiratory: + cough (on deep inspiration); no dyspnea Gastrointestinal: + abdominal pain (post-surg. ) Physical Exam Constitutional: well developed and well nourished; no acute distress Eyes: PERRL, conjunctivae normal, anicteric sclerae ENMT: external ear and nose normal, oropharynx normal Neck: supple, no JVD Respiratory: normal respiratory effort, lungs clear to auscultation Cardiovascular: RRR, no murmur, no edema Vessels: normal peripheral pulses Chest (Breasts): normal inspection/palpation of breasts Gastrointestinal (Abdomen): Inspection/Auscultation: normal bowel sounds; + abdomen abnormal to inspection (several post.surg. inc. sites - w/o erythema, edema, drainage) Percussion/Palpation: + abdomen tender (diffusely to palp. / post. surg.) Musculoskeletal: Head/Neck/Chest: normocephalic, head atraumatic and neck supple Extremities: extremities normal to inspection and strength 5/5 throughout Skin: no rashes, warm and dry Neurologic: PERRL, EOMI, accommodation nl, no face palsy, no dysarthria Psychiatric: A+Ox3, euthymic affect Speech: normal rate/rhythm/volume of speech Genitourinary: no CVA tenderness Lymphatic: no lymphedema and no cervical lymphadenopathy Results & Data Vital Signs (Past 12 Hours) Vital Signs Temp Pulse Resp BP Pulse Ox 04/26/19 09:00 90 21 95 04/26/19 08:04 88 15 125/67 95 04/26/19 08:00 37.1 C 94 H 15 95 04/26/19 07:00 70 19 129/79 96 04/26/19 04:30 82 13 94 10/27/19 04:15 81 12 95 04/26/19 04:00 37.3 C 65 18 84/46 L 93 04/26/19 03:45 72 23 92 04/26/19 03:30 67 16 93 04/26/19 03:15 80 22 95 04/26/19 03:00 72 16 123/60 95 04/26/19 02:45 67 16 94 04/26/19 02:30 74 19 95 04/26/19 02:15 73 24 95 04/26/19 02:00 71 12 128/63 94 04/26/19 01:45 77 8 L 94 04/26/19 01:30 75 12 95 04/26/19 01:15 73 15 94 04/26/19 01:00 72 12 120/59 L 94 04/26/19 00:45 70 12 92 04/26/19 00:30 77 11 L 95 04/26/19 00:15 67 16 92 04/26/19 00:00 37.1 C 84 22 117/58 L 94 04/25/19 23:45 89 13 94 04/25/19 23:30 78 15 93 04/25/19 23:15 81 11 L 95 04/25/19 23:00 70 14 124/60 92 04/25/19 22:45 74 17 93 04/25/19 22:30 76 18 93 Laboratory Results 04/26/19 04/26/19 04/25/19 Range/Units 04:51 04:51 16:02 WBC 7.96 7.24 (4.8-10.8) K/uL RBC 3.49 L 3.73 L (4.2-5.4) M/uL Hgb 10.6 L 11.2 L (12.0-16.0) g/dL Hct 32.1 L 34.6 L (37-47) % MCV 92.0 92.8 (80-100) fL MCH 30.4 30.0 (25-34) pg MCHC 33.0 32.4 (32-36) g/dL RDW Std Deviation 47.3 H 47.3 H (36.4-46.3) fL RDW Coeff of Karthikeyan 14.0 13.9 (11.5-14.5) % Plt Count 140 150 (130-400) K/uL MPV 10.4 10.5 H (7.4-10.4) fL Immature Gran % (Auto) 0.1 % Neut % (Auto) 62.4 % Lymph % (Auto) 27.9 % [place] % (Auto) 7.8 % Eos % (Auto) 1.5 % Baso % (Auto) 0.3 % Immature Gran # (Auto) 0.01 (0.00-0.02) K/uL Neut # (Auto) 4.97 (1.4-6.5) K/uL Lymph # (Auto) 2.22 (1.2-3.4) K/uL [place] # (Auto) 0.62 H (0.11-0.59) K/uL Eos # (Auto) 0.12 (0-0.5) K/uL Baso # (Auto) 0.02 (0-0.2) K/uL Sodium 144 (136-145) mmol/L Potassium 3.6 D (3.5-5.1) mmol/L Chloride 114 H (98-107) mmol/L Carbon Dioxide 26 (21-32) mmol/L Anion Gap 4.0 (3-11) BUN 10 (7-18) mg/dl Creatinine 0.69 (0.6-1.2) mg/dl Est Cr Clr Drug Dosing 98.4 ml/min Est GFR ( Amer) 109.7 Est GFR (Non-Af Amer) 94.6 BUN/Creatinine Ratio 13.8 (10-20) Glucose 98 (70-99) mg/dl Lactate (0.4-2.0) mmol/L Calcium 7.7 L (8.5-10.1) mg/dl Phosphorus 2.0 L D (2.5-4.9) mg/dl Magnesium 2.0 (1.8-2.4) mg/dl Troponin I (0-0.045) ng/ml 04/25/19 04/25/19 04/25/19 Range/Units 14:12 12:16 09:50 WBC (4.8-10.8) K/uL RBC (4.2-5.4) M/uL Hgb (12.0-16.0) g/dL Hct (37-47) % MCV (80-100) fL MCH (25-34) pg MCHC (32-36) g/dL RDW Std Deviation (36.4-46.3) fL RDW Coeff of Karthikeyan (11.5-14.5) % Plt Count (130-400) K/uL MPV (7.4-10.4) fL Immature Gran % (Auto) % Neut % (Auto) % Lymph % (Auto) % [place] % (Auto) % Eos % (Auto) % Baso % (Auto) % Immature Gran # (Auto) (0.00-0.02) K/uL Neut # (Auto) (1.4-6.5) K/uL Lymph # (Auto) (1.2-3.4) K/uL [place] # (Auto) (0.11-0.59) K/uL Eos # (Auto) (0-0.5) K/uL Baso # (Auto) (0-0.2) K/uL Sodium (136-145) mmol/L Potassium (3.5-5.1) mmol/L Chloride (98-107) mmol/L Carbon Dioxide (21-32) mmol/L Anion Gap (3-11) BUN (7-18) mg/dl Creatinine (0.6-1.2) mg/dl Est Cr Clr Drug Dosing ml/min Est GFR ( Amer) Est GFR (Non-Af Amer) BUN/Creatinine Ratio (10-20) Glucose (70-99) mg/dl Lactate 2.6 H* 3.6 H* (0.4-2.0) mmol/L Calcium (8.5-10.1) mg/dl Phosphorus (2.5-4.9) mg/dl Magnesium (1.8-2.4) mg/dl Troponin I 75.100 H* (0-0.045) ng/ml 04/25/19 Range/Units 09:50 WBC (4.8-10.8) K/uL RBC (4.2-5.4) M/uL Hgb (12.0-16.0) g/dL Hct (37-47) % MCV (80-100) fL MCH (25-34) pg MCHC (32-36) g/dL RDW Std Deviation (36.4-46.3) fL RDW Coeff of Karthikeyan (11.5-14.5) % Plt Count (130-400) K/uL MPV (7.4-10.4) fL Immature Gran % (Auto) % Neut % (Auto) % Lymph % (Auto) % [place] % (Auto) % Eos % (Auto) % Baso % (Auto) % Immature Gran # (Auto) (0.00-0.02) K/uL Neut # (Auto) (1.4-6.5) K/uL Lymph # (Auto) (1.2-3.4) K/uL [place] # (Auto) (0.11-0.59) K/uL Eos # (Auto) (0-0.5) K/uL Baso # (Auto) (0-0.2) K/uL Sodium (136-145) mmol/L Potassium (3.5-5.1) mmol/L Chloride (98-107) mmol/L Carbon Dioxide (21-32) mmol/L Anion Gap (3-11) BUN (7-18) mg/dl Creatinine (0.6-1.2) mg/dl Est Cr Clr Drug Dosing ml/min Est GFR ( Amer) Est GFR (Non-Af Amer) BUN/Creatinine Ratio (10-20) Glucose (70-99) mg/dl Lactate (0.4-2.0) mmol/L Calcium (8.5-10.1) mg/dl Phosphorus (2.5-4.9) mg/dl Magnesium (1.8-2.4) mg/dl Troponin I 81.400 H* (0-0.045) ng/ml Medications Administered Current Inpatient Medications Acetaminophen (Tylenol) 650 mg PO Q6H PRN PRN Reason: pain, headache or fever Stop: 05/24/19 16:53 Aspirin (Ecotrin Ectab) 81 mg PO QPM NATHANIEL Stop: 05/24/19 20:59 Last Admin: 04/25/19 21:09 Dose: 81 mg Documented by: Atorvastatin Calcium (Lipitor) 40 mg PO PM NATHANIEL Stop: 05/24/19 20:59 Last Admin: 04/25/19 21:09 Dose: 40 mg Documented by: Bisacodyl (Dulcolax) 10 mg [place] DAILY PRN PRN Reason: Constipation or flatulance Stop: 05/24/19 16:53 Bisacodyl (Dulcolax) 10 mg [place] Q12 PRN PRN Reason: Constipation Stop: 05/26/19 08:50 Carisoprodol (Soma) 350 mg PO QPM [facility] Stop: 05/24/19 20:59 Last Admin: 04/25/19 21:08 Dose: 350 mg Documented by: Docusate Sodium (Colace) 100 mg PO BID [facility] Stop: 05/24/19 20:59 Last Admin: 04/26/19 08:24 Dose: 100 mg Documented by: Ezetimibe (Zetia) 10 mg PO QPM NATHANIEL Stop: 05/24/19 20:59 Last Admin: 04/25/19 21:09 Dose: 10 mg Documented by: Fluticasone Propionate (Flonase) 1 sprays NA DAILY [facility] Stop: 05/25/19 08:59 Last Admin: 04/26/19 08:20 Dose: 1 sprays Documented by: Potassium Phosphate 21 mmol/ (Sodium Chloride) 507 mls @ 88 mls/hr IV ONE ONE Stop: 04/26/19 12:15 Last Admin: 04/26/19 06:38 Dose: 88 mls/hr Documented by: Levothyroxine Sodium (Synthroid) 75 mcg PO QPM [facility] Stop: 05/24/19 20:59 Last Admin: 04/25/19 21:09 Dose: 75 mcg Documented by: Magnesium Hydroxide (Milk Of Magnesia) 30 ml PO Q6H PRN PRN Reason: Constipation Stop: 05/24/19 16:53 Miscellaneous ([facility] Protocol For Hyperglycemia) 1 ea N/A PRN PRN; Protocol PRN Reason: Hyperglycemia Protocol Stop: 04/27/19 00:41 Miscellaneous ([facility] Electrolyte Replacement Protocol) 1 ea N/A UD PRN PRN Reason: for e-lyte repletion Stop: 05/02/19 14:08 Ondansetron HCl (Zofran) 4 mg IV Q6H PRN PRN Reason: Nausea And Vomiting Stop: 05/24/19 16:53 Last Admin: 04/25/19 11:05 Dose: 4 mg Documented by: Oxycodone/Acetaminophen (Percocet 5mg/325mg) 1 tab PO Q4H PRN PRN Reason: Pain Scale 1,2,3,4,5 Stop: 05/08/19 16:53 Last Admin: 04/26/19 08:20 Dose: 1 tab Documented by: Oxycodone/Acetaminophen (Percocet 5mg/325mg) 2 tab PO Q4H PRN PRN Reason: Pain Scale 6,7,8,9,10 Stop: 05/08/19 16:53 Simethicone (Mylicon) 80 mg PO TID PRN PRN Reason: Gas Stop: 05/24/19 16:53 Ticagrelor (Brilinta) 90 mg PO BID [facility] Stop: 05/25/19 11:59 Last Admin: 04/26/19 08:19 Dose: 90 mg Documented by: Venlafaxine HCl (Effexor) 37.5 mg PO QPM [facility] Stop: 05/24/19 20:59 Last Admin: 04/25/19 18:37 Dose: 37.5 mg Documented by:
[2019-04-26] MEDS: METOPROLOL TARTRATE 25 MG TAB PO SCH ×2 (13:31→21:07)
[2019-04-26] MEDS ORDERED: POTASSIUM CHLORIDE 20 MEQ TABCR PO STA ×2 (13:33→19:28)
[2019-04-26 13:37] LABS: BUN Creatinine Ratio 12.7 (10-20); Calcium 7.9 mg/dl (8.5-10.1); Est GFR (African American) 103.8; Est GFR (Non-African American) 89.5; Potassium 3.8 mmol/L (3.5-5.1)
--- NOTE | 2019-04-26 16:11 | Urology Progress Note ---
Date of Service April 26, 2019 Assessment & Plan (1) Status post bladder repair: A/P 58-year-old female postoperative day #2 status post robotic hysterectomy, extensive lysis of adhesions, repair of intraoperative cystotomy, hospital day #1 status post myocardial infarction and coronary stenting. Intraoperative urologic findings again reviewed with patient and family as well as postoperative plan/management. Ramos catheter x7 to 10 days with cystogram prior to trial of void. Should the patient remain in the hospital this can be performed at that time as well, otherwise will arrange as outpatient. Patient vocalizes good understanding of the treatment plan. We will check in on the patient intermittently while she remains in house. Subjective 58-year-old female postoperative day #2 status post robotic hysterectomy and repair of cystotomy. Family is present in the room. Patient reports that she is "antsy " and wishes to be more active but runs into fatigue. Interval events since last evaluation are noted. Ramos catheter is draining clear yellow urine. Patient notes fatigue due to her numerous recent health events but otherwise feels relatively well. Review of Systems Constitutional: + fatigue; no fever and no chills Eyes: no diplopia Ear, Nose, Mouth, Throat: no ear trauma Respiratory: no hemoptysis Cardiovascular: no chest pain Gastrointestinal: + abdominal pain (Mild and appropriate postop) Integumentary: no acne and no boil Neurologic: no paralysis Psychiatric: no hopelessness Allergy / Immunological: no tongue swelling Physical Exam Constitutional: well developed; no acute distress Eyes: eyes not dysmorphic ENMT: Ears: no external ear abnormality Neck: trachea midline; no anterior neck swelling Respiratory: no respiratory distress and does not use accessory muscles Cardiovascular: Vessels: radial pulses present Gastrointestinal (Abdomen): Inspection/Auscultation: abdomen not distended Percussion/Palpation: abdomen soft Musculoskeletal: Head/Neck/Chest: normocephalic and neck supple Skin: normal turgor Neurologic: awake; not obtunded Psychiatric: Orientation: oriented x 3 Lymphatic: no lymphadenopathy Results & Data Vital Signs (Past 12 Hours) Vital Signs Temp Pulse Resp BP Pulse Ox 04/26/19 12:00 80 04/26/19 11:02 79 21 100/62 99 04/26/19 10:00 78 18 93/63 L 97 04/26/19 09:00 90 21 95 04/26/19 08:04 88 15 125/67 95 04/26/19 08:00 37.1 C 94 H 15 95 04/26/19 07:00 70 19 129/79 96 04/26/19 04:30 82 13 94 04/26/19 04:15 81 12 95 Laboratory Results Laboratory Results - last 48 hr 04/24/19 04/24/19 04/24/19 19:52 20:22 20:22 WBC RBC Hgb 14.6 Hct 44.3 MCV MCH MCHC RDW Std Deviation RDW Coeff of Karthikeyan Plt Count MPV Immature Gran % (Auto) Neut % (Auto) Lymph % (Auto) [place] % (Auto) Eos % (Auto) Baso % (Auto) Immature Gran # (Auto) Neut # (Auto) Lymph # (Auto) [place] # (Auto) Eos # (Auto) Baso # (Auto) APTT PTT Ratio Sodium 139 Potassium 4.5 Chloride 107 Carbon Dioxide 24 Anion Gap 8.0 BUN 17 Creatinine 1.06 Est Cr Clr Drug Dosing 59.0 Est GFR ( Amer) 66.1 Est GFR (Non-Af Amer) 57.0 BUN/Creatinine Ratio 16.0 Glucose 160 H Lactate Calcium 8.3 L Phosphorus Magnesium 1.9 Total Bilirubin 0.3 Direct Bilirubin AST 50 H ALT 49 Alkaline Phosphatase 110 Troponin I 2.830 H* Total Protein 6.7 Albumin 3.4 Globulin 3.3 Albumin/Globulin Ratio 1.0 Lipase 132 Procalcitonin Random Cortisol Nasal Screen MRSA (PCR) 04/24/19 04/24/19 04/24/19 20:22 20:22 21:53 WBC RBC Hgb Hct MCV MCH MCHC RDW Std Deviation RDW Coeff of Karthikeyan Plt Count MPV Immature Gran % (Auto) Neut % (Auto) Lymph % (Auto) [place] % (Auto) Eos % (Auto) Baso % (Auto) Immature Gran # (Auto) Neut # (Auto) Lymph # (Auto) [place] # (Auto) Eos # (Auto) Baso # (Auto) APTT 25.6 PTT Ratio 0.9 Sodium Potassium Chloride Carbon Dioxide Anion Gap BUN Creatinine Est Cr Clr Drug Dosing Est GFR ( Amer) Est GFR (Non-Af Amer) BUN/Creatinine Ratio Glucose Lactate Calcium Phosphorus Magnesium Cancelled Total Bilirubin Direct Bilirubin AST ALT Alkaline Phosphatase Troponin I 8.380 H* Total Protein Albumin Globulin Albumin/Globulin Ratio Lipase Procalcitonin Random Cortisol Nasal Screen MRSA (PCR) 04/25/19 04/25/19 04/25/19 01:58 04:29 04:29 WBC 10.44 RBC 3.90 L Hgb 12.7 12.0 Hct 38.4 36.0 L MCV 92.3 MCH 30.8 MCHC 33.3 RDW Std Deviation 45.4 RDW Coeff of Karthikeyan 13.6 Plt Count 172 MPV 10.1 Immature Gran % (Auto) 0.2 Neut % (Auto) 78.4 Lymph % (Auto) 13.1 [place] % (Auto) 7.9 Eos % (Auto) 0.2 Baso % (Auto) 0.2 Immature Gran # (Auto) 0.02 Neut # (Auto) 8.19 H Lymph # (Auto) 1.37 [place] # (Auto) 0.82 H Eos # (Auto) 0.02 Baso # (Auto) 0.02 APTT PTT Ratio Sodium 139 Potassium 4.3 Chloride 107 Carbon Dioxide 27 Anion Gap 5.0 BUN 13 Creatinine 0.88 Est Cr Clr Drug Dosing 71.0 Est GFR ( Amer) 82.8 Est GFR (Non-Af Amer) 71.4 BUN/Creatinine Ratio 14.8 Glucose 118 H Lactate Calcium 7.6 L Phosphorus 3.1 Magnesium 1.8 Total Bilirubin 0.4 Direct Bilirubin 0.1 AST 293 H ALT 55 Alkaline Phosphatase 88 Troponin I 106.000 H* Total Protein 6.0 L Albumin 3.2 L Globulin Albumin/Globulin Ratio Lipase Procalcitonin Random Cortisol Nasal Screen MRSA (PCR) 04/25/19 04/25/19 04/25/19 04:29 04:29 05:42 WBC RBC Hgb Hct MCV MCH MCHC RDW Std Deviation RDW Coeff of Karthikeyan Plt Count MPV Immature Gran % (Auto) Neut % (Auto) Lymph % (Auto) [place] % (Auto) Eos % (Auto) Baso % (Auto) Immature Gran # (Auto) Neut # (Auto) Lymph # (Auto) [place] # (Auto) Eos # (Auto) Baso # (Auto) APTT PTT Ratio Sodium Potassium Chloride Carbon Dioxide Anion Gap BUN Creatinine Est Cr Clr Drug Dosing Est GFR ( Amer) Est GFR (Non-Af Amer) BUN/Creatinine Ratio Glucose Lactate 2.5 H* Calcium Phosphorus Magnesium Total Bilirubin Direct Bilirubin AST ALT Alkaline Phosphatase Troponin I Total Protein Albumin Globulin Albumin/Globulin Ratio Lipase Procalcitonin < 0.05 Random Cortisol 2.48 Nasal Screen MRSA (PCR) 04/25/19 04/25/19 04/25/19 09:50 09:50 09:50 WBC RBC Hgb 10.4 L Hct 31.0 L MCV MCH MCHC RDW Std Deviation RDW Coeff of Karthikeyan Plt Count MPV Immature Gran % (Auto) Neut % (Auto) Lymph % (Auto) [place] % (Auto) Eos % (Auto) Baso % (Auto) Immature Gran # (Auto) Neut # (Auto) Lymph # (Auto) [place] # (Auto) Eos # (Auto) Baso # (Auto) APTT PTT Ratio Sodium Potassium Chloride Carbon Dioxide Anion Gap BUN Creatinine Est Cr Clr Drug Dosing Est GFR ( Amer) Est GFR (Non-Af Amer) BUN/Creatinine Ratio Glucose Lactate 3.6 H* Calcium Phosphorus Magnesium Total Bilirubin Direct Bilirubin AST ALT Alkaline Phosphatase Troponin I 81.400 H* Total Protein Albumin Globulin Albumin/Globulin Ratio Lipase Procalcitonin Random Cortisol Nasal Screen MRSA (PCR) 04/25/19 04/25/19 04/25/19 12:16 14:12 16:02 WBC 7.24 RBC 3.73 L Hgb 11.2 L Hct 34.6 L MCV 92.8 MCH 30.0 MCHC 32.4 RDW Std Deviation 47.3 H RDW Coeff of Karthikeyan 13.9 Plt Count 150 MPV 10.5 H Immature Gran % (Auto) Neut % (Auto) Lymph % (Auto) [place] % (Auto) Eos % (Auto) Baso % (Auto) Immature Gran # (Auto) Neut # (Auto) Lymph # (Auto) [place] # (Auto) Eos # (Auto) Baso # (Auto) APTT PTT Ratio Sodium Potassium Chloride Carbon Dioxide Anion Gap BUN Creatinine Est Cr Clr Drug Dosing Est GFR ( Amer) Est GFR (Non-Af Amer) BUN/Creatinine Ratio Glucose Lactate 2.6 H* Calcium Phosphorus Magnesium Total Bilirubin Direct Bilirubin AST ALT Alkaline Phosphatase Troponin I 75.100 H* Total Protein Albumin Globulin Albumin/Globulin Ratio Lipase Procalcitonin Random Cortisol Nasal Screen MRSA (PCR) 04/25/19 04/26/19 04/26/19 Unknown 04:51 04:51 WBC 7.96 RBC 3.49 L Hgb 10.6 L Hct 32.1 L MCV 92.0 MCH 30.4 MCHC 33.0 RDW Std Deviation 47.3 H RDW Coeff of Karthikeyan 14.0 Plt Count 140 MPV 10.4 Immature Gran % (Auto) 0.1 Neut % (Auto) 62.4 Lymph % (Auto) 27.9 [place] % (Auto) 7.8 Eos % (Auto) 1.5 Baso % (Auto) 0.3 Immature Gran # (Auto) 0.01 Neut # (Auto) 4.97 Lymph # (Auto) 2.22 [place] # (Auto) 0.62 H Eos # (Auto) 0.12 Baso # (Auto) 0.02 APTT PTT Ratio Sodium 144 Potassium 3.6 D Chloride 114 H Carbon Dioxide 26 Anion Gap 4.0 BUN 10 Creatinine 0.69 Est Cr Clr Drug Dosing 98.4 Est GFR ( Amer) 109.7 Est GFR (Non-Af Amer) 94.6 BUN/Creatinine Ratio 13.8 Glucose 98 Lactate Calcium 7.7 L Phosphorus 2.0 L D Magnesium 2.0 Total Bilirubin Direct Bilirubin AST ALT Alkaline Phosphatase Troponin I Total Protein Albumin Globulin Albumin/Globulin Ratio Lipase Procalcitonin Random Cortisol Nasal Screen MRSA (PCR) Negative 04/26/19 12:54 WBC RBC Hgb Hct MCV MCH MCHC RDW Std Deviation RDW Coeff of Karthikeyan Plt Count MPV Immature Gran % (Auto) Neut % (Auto) Lymph % (Auto) [place] % (Auto) Eos % (Auto) Baso % (Auto) Immature Gran # (Auto) Neut # (Auto) Lymph # (Auto) [place] # (Auto) Eos # (Auto) Baso # (Auto) APTT PTT Ratio Sodium 144 Potassium 3.8 Chloride 112 H Carbon Dioxide 27 Anion Gap 5.0 BUN 9 Creatinine 0.73 Est Cr Clr Drug Dosing 93.0 Est GFR ( Amer) 103.8 Est GFR (Non-Af Amer) 89.5 BUN/Creatinine Ratio 12.7 Glucose 105 H Lactate Calcium 7.9 L Phosphorus Magnesium 2.0 Total Bilirubin Direct Bilirubin AST ALT Alkaline Phosphatase Troponin I Total Protein Albumin Globulin Albumin/Globulin Ratio Lipase Procalcitonin Random Cortisol Nasal Screen MRSA (PCR) PG Care Time/CCT Total # of Minutes Spent Total Time Spent with Patient: Total time spent is greater than 50% in coordination of care (as documented) at patient's floor/unit and/or counseling patient:
[2019-04-26] MEDS: LEVOTHYROXINE SODIUM 75 MCG TABLET PO SCH (21:07)
[2019-04-26] MEDS: ASPIRIN 81 MG ECTAB PO SCH (21:07)
[2019-04-26] MEDS: EZETIMIBE 10 MG TABLET PO SCH (21:07)
[2019-04-26] MEDS: ATORVASTATIN 40 MG TAB PO SCH (21:07)
[2019-04-26] MEDS: CARISOPRODOL 350 MG TABLET PO SCH (21:08)
[2019-04-26] MEDS: VENLAFAXINE HCL 37.5 MG TAB PO SCH (21:08)
[2019-04-27 03:33] LABS: BUN Creatinine Ratio 13.2 (10-20); Calcium 8.1 mg/dl (8.5-10.1); Est GFR (African American) 103.8; Est GFR (Non-African American) 89.5; Potassium 3.8 mmol/L (3.5-5.1)
[2019-04-27 03:46] LABS: Phosphorus 1.9 mg/dl (2.5-4.9); Troponin I 31.9 ng/ml (0-0.045)
[2019-04-27] MEDS ORDERED: POTASSIUM PHOS 3 MMOL/1 ML INFUSION IV STA (03:49)
[2019-04-27] MEDS ORDERED: POTASSIUM PHOSPHATE 21 MMOL in SODIUM CHLORIDE 0.9% 500 ML IV ONE (04:30)
[2019-04-27] MEDS: OXYCODONE/ACETAMINOPHEN 5mg/325mg TAB PO PRN ×3 (05:29→21:04)
--- NOTE | 2019-04-27 06:38 | Gynecologic Progress Note ---
Date of Service surgically, she is passing flatus and 2 bm so far. no bleeding, no ext pain. April 27, 2019 Assessment & Plan (1) S/P hysterectomy with oophorectomy: From a [employer] point of view she is doing well, however defer to cardiac team regarding further management Physical Exam Constitutional: WD/WN, vitals as above well developed Gastrointestinal (Abdomen): normal bowel sounds, soft, nontender, no hepatosplenomegaly Inspection/Auscultation: abdomen normal to inspection and normal bowel sounds Results & Data Vital Signs (Past 12 Hours) Vital Signs Pulse Resp BP Pulse Ox 04/26/19 19:00 90 20 114/62 93 04/26/19 18:45 84 19 94 04/26/19 18:32 67 18 113/60 97 PG Care Time/CCT Total # of Minutes Spent Total Time Spent with Patient: Total time spent is greater than 50% in coordination of care (as documented) at patient's floor/unit and/or counseling patient:
[2019-04-27 07:01] LABS: Basophils # (auto) 0.04 K/uL (0-0.2); Basophils % (auto) 0.4 %; Eosinophils # (auto) 0.27 K/uL (0-0.5); Hematocrit (blood only) 34.2 % (37-47); Hemoglobin 11.2 g/dL (12.0-16.0); Immature Granulocytes # (auto) 0.02 K/uL (0.00-0.02); Immature Granulocytes % (auto) 0.2 %; Lymphocytes % (auto) 28.9 %; Mean Corpuscular Hemoglobin 30.4 pg (25-34); Mean Corpuscular Hgb Conc 32.7 g/dL (32-36); Mean Corpuscular Volume 92.7 fL (80-100); Mean Platelet Volume 11.1 fL (7.4-10.4); Monocytes # (auto) 0.54 K/uL (0.11-0.59); Neutrophils # (auto) 5.54 K/uL (1.4-6.5); Neutrophils % (auto) 61.5 %; Platelet Count 163 K/uL (130-400); RDW Coefficient of Variation 13.9 % (11.5-14.5); RDW Standard Deviation 47.2 fL (36.4-46.3); Red Blood Count 3.69 M/uL (4.2-5.4); White Blood Count 9.01 K/uL (4.8-10.8)
--- NOTE | 2019-04-27 07:10 | Surgery Consultation ---
Date of Consultation April 24, 2019 Assessment & Plan (1) Intra-abdominal adhesions: I was asked for assistance in performing lysis of adhesions to facilitate hysterectomy. History of Present Illness Reason for Consultation: Intraoperative consultation for lysis of adhesions Requesting Physician: Louise Orozco MD, FACOG Attending Physician: Louise Orozco MD, FACOG History of Present Illness I was asked by Dr. Orozco for an intraoperative consultation. The patient was undergoing hysterectomy laparoscopically with robotic assistance. He asked for help with lysis of extensive adhesions. Remainder of patient's history and physical as per Dr. Orozco. Allergies Allergy/AdvReac Type Severity Reaction Status Date / Time clopidogrel Allergy Intermediate rash Verified 04/24/19 08:36 Home Medications Home Medications Medication Instructions Recorded Confirmed Type ezetimibe 10 mg tablet 10 mg PO QPM tab 01/26/19 04/24/19 History levothyroxine 75 mcg tablet 75 mcg PO QPM tab 01/26/19 04/24/19 History lorazepam 0.5 mg tablet 0.5 mg PO HS PRN tab 01/26/19 04/24/19 History aspirin [Aspirin Low Dose] 81 mg PO QPM 03/27/19 04/24/19 History atorvastatin 40 mg PO PM 03/27/19 04/24/19 History metoprolol tartrate 25 mg PO QPM 03/27/19 04/24/19 History venlafaxine 37.5 mg PO QPM 03/27/19 04/24/19 History diphenhydramine 25 mg capsule 25 mg PO Q8H PRN 04/01/19 04/24/19 History fluticasone propionate 50 1 sprays INTNAS DAILY 04/01/19 04/24/19 History mcg/actuation nasal spray,suspension oxycodone-acetaminophen 5 mg-325 1 tab PO TID PRN #10 tab 04/01/19 04/24/19 Rx mg tablet carisoprodol [Soma] 350 mg PO QID 04/24/19 04/24/19 History Patient History Medical History AAA (abdominal aortic aneurysm) (Chronic) stable at 4.6cm- monitoring by S surgery/under surveillance/no plan for surgical intervention at this time AAA (abdominal aortic aneurysm) without rupture (Chronic) Anxiety (Chronic) Depression (Chronic) H/O varicose veins (Chronic) 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) History of arterial occlusion (Chronic) Left SFA stent (2014) History of kidney stones (Chronic) Hyperlipidemia (Chronic) Hypothyroidism (Chronic) Surgical History History of (Chronic) X2 History of ectopic (Chronic) X2 Hx of cystoscopy (Chronic) FOR STONE REMOVAL Hx of left breast biopsy (Chronic) Hx of ovarian cystectomy (Chronic) RIGHT Hx of partial thyroidectomy (Chronic) 90% REMOVAL Hx of tubal ligation (Chronic) History of colposcopy with cervical biopsy (Chronic) 12/18/16; 08/22/17 History of loop electrical excision procedure (LEEP) (Chronic) Family History Grandmother (Maternal) Family history of diabetes mellitus Father Family history of diabetes mellitus Sister Family history of diabetes mellitus Mother Myocardial infarction Brother Myocardial infarction Social History Preferred Language: Peruvian Communication Ability: Effective Beliefs That Will Affect Care: None Current Living Situation: Alone Feels Safe at Home: Yes Smoking Status: Current every day smoker Tobacco Type: cigarettes ; Age Started Using Tobacco: 13 ; packs per day: 0.5 ; Cigarettes Per Day: 10 cigarettes/day x 20+ years ; Do You Dip or Chew Tobacco: No ; Second Hand Exposure: No ; Hx Alcohol Use: Yes Hx Substance Use: No Physical Exam Gastrointestinal (Abdomen): Patient had laparoscopic access with insufflation
--- NOTE | 2019-04-27 08:02 | Anesthesiology Progress Note ---
Date of Service April 27, 2019 Anesthesia Post Procedure Vital Signs Vital Signs: Temp Pulse Resp BP Pulse Ox 04/27/19 07:00 67 11 L 85/50 L 96 04/27/19 06:45 65 13 97 04/27/19 06:30 70 17 98 04/27/19 06:15 70 10 L 88/52 L 96 04/27/19 06:00 66 15 97 04/27/19 05:45 66 13 98 04/27/19 05:30 74 15 96 04/27/19 05:15 67 19 96 04/27/19 05:00 64 17 96/52 L 96 04/27/19 04:45 67 18 96 04/27/19 04:30 66 20 96 04/27/19 04:15 36.7 C 64 12 97 04/27/19 04:00 65 15 98/51 L 97 04/27/19 03:45 68 14 95 04/27/19 03:30 67 18 91 04/27/19 03:15 63 18 93 04/27/19 03:00 69 16 109/68 93 04/27/19 02:45 61 12 93 04/27/19 02:30 65 16 94 04/27/19 02:15 68 14 94 04/27/19 02:00 69 23 100/64 92 04/27/19 01:45 73 8 L 96 04/27/19 01:30 69 10 L 96 04/27/19 01:15 71 6 L 95 04/27/19 01:00 59 L 16 112/65 92 04/27/19 00:51 62 14 91/56 L 92 04/27/19 00:45 73 10 L 95 04/27/19 00:30 70 14 95 04/27/19 00:15 68 14 93 04/27/19 00:00 37 C 66 13 71/42 L 92 04/26/19 23:45 65 15 96 04/26/19 23:30 56 L 13 91 04/26/19 23:15 59 L 13 89 L 04/26/19 23:00 71 9 L 100/54 L 94 04/26/19 22:45 60 13 89 L 04/26/19 22:30 73 7 L 94 04/26/19 22:15 65 15 90 04/26/19 22:00 75 19 121/76 93 04/26/19 21:45 72 18 92 04/26/19 21:30 76 21 98 04/26/19 21:15 87 19 94 04/26/19 21:00 75 16 152/86 H 96 04/26/19 20:45 93 H 20 88 L 04/26/19 20:30 74 16 95 04/26/19 20:15 72 17 95 04/26/19 20:00 37.5 C 69 17 113/71 93 04/26/19 19:45 79 21 93 04/26/19 19:30 77 13 94 04/26/19 19:15 70 17 94 04/26/19 19:08 73 14 114/62 92 04/26/19 19:00 90 20 114/62 93 04/26/19 18:45 84 19 94 04/26/19 18:32 67 18 113/60 97 04/26/19 18:30 72 22 99 04/26/19 18:15 82 15 04/26/19 18:00 76 16 04/26/19 17:45 73 18 04/26/19 17:30 87 14 04/26/19 17:15 81 19 04/26/19 17:00 71 16 04/26/19 16:45 87 12 95 04/26/19 16:30 98 H 17 97 04/26/19 16:15 78 12 96 04/26/19 16:00 73 30 H 134/83 95 04/26/19 15:45 78 16 95 04/26/19 15:30 68 13 92 04/26/19 15:15 74 7 L 94 04/26/19 15:00 66 12 109/61 89 L 04/26/19 14:45 76 8 L 95 04/26/19 14:30 80 7 L 94 04/26/19 14:15 70 7 L 92 04/26/19 14:00 90 19 155/76 H 97 04/26/19 13:45 70 25 H 95 04/26/19 13:31 84 23 123/77 94 04/26/19 13:30 78 20 94 04/26/19 13:27 64 16 150/78 H 94 04/26/19 13:15 86 12 124/77 95 04/26/19 13:00 87 18 136/88 91 04/26/19 12:45 74 19 122/83 96 04/26/19 12:30 88 12 111/66 94 04/26/19 12:15 94 H 15 105/70 95 04/26/19 12:00 63 13 115/71 95 04/26/19 11:45 94 H 28 H 130/81 90 04/26/19 11:30 71 17 120/81 93 04/26/19 11:15 70 10 L 112/73 93 04/26/19 11:05 56 L 20 120/80 100 04/26/19 11:02 79 21 100/62 99 04/26/19 10:00 78 18 93/63 L 97 04/26/19 09:00 90 21 95 04/26/19 08:04 88 15 125/67 95 Pain Intensity Abdomen: Pain Intensity: 4 Notes Mental Status: alert / awake / arousable Patient Amnestic to Procedure: Yes Nausea / Vomiting: adequately controlled Pain: adequately controlled Airway Patency, RR, SpO2: stable & adequate BP & HR: stable & adequate Hydration State: stable & adequate Anesthetic Complications: see Notes below Notes: Pt. with chest pain post procedure when up in inpatient room. To rn lab for STEMI with stent to RCA. Pt with no apparent complications, very pleased with anesthetic care. Currently stable.
[2019-04-27 08:46] LABS: Appearance Urine Cloudy (Clear); Bacteria Urine Automated Negative (Negative); Bilirubin Urine Negative (Negative); Blood Urine 3+ (Negative); Color Urine Orange; Glucose Urine UA Negative (Negative); Ketones Urine Negative (Negative); Leukocyte Esterase Urine 1+ (Negative); Nitrite Urine Negative (Negative); Protein Urine Trace (Negative); RBC Urine Automated >30 /hpf (0-4); Specific Gravity Urine 1.017 (1.000-1.030); Urobilinogen Urine Negative (Negative)
--- NOTE | 2019-04-27 08:47 | Critical Care Progress Note ---
Date of Service April 27, 2019 Assessment & Plan (1) Admitted to intensive care unit: Reason Critically Ill: 58-year-old female s/p total hysterectomy with inferior STEMI, post stent placement in RCA. ICU monitoring currently for hypotension. Neuro CAM ICU: Negative pain management postop per primary team Cardiac STEMI -patient experienced chest pain after surgery and was found to have ST elevation in inferior leads -S/P cardiac cath with stent x2 to RCA with immediate relief of chest pain -trops have peaked and are downtrending -EKG 04/27- sinus arythmia with rate of 77, qtc prolonged at 563. Will d/c Venlafaxine. -Echo with EF of 50-55%, severe hypokinesis of inferior wall, septum -Pt currently hypotensive, Hx of soft BPs in office before NM -Hypotension related to inferior NM/right sided dysfunction has been treated in ICU with dobutamine and fluids -Currently off of dobutamine, on fluids. Monitoring BP which is still soft. -Continue ASA, Lipitor, Brilinta -Appreciate cardiology recs AAA -followed as outpatient, reportedly grew from 3.5 cm to 4 cm over the past year -advise no fluoroquinolone use, close BP monitoring to avoid hypertension. Respiratory -Currently on room air, saturating well -chest XR with no evidence of fluid overload. GI -Heart healthy diet -No BM yet postop, management per primary team RENAL/LYTES -Creatinine and electrolytes stable -lizama in, with extensive urine output even off dobutamine. -UA, urine osmolality, urine Na with no evidence of DI -will keep lizama in as per Urology instructions -will monitor with routine BMPs Hx of HSILstatus post total hysterectomy 04/24, reportedly extensive surgery with numerous adhesions, bladder repair -management postop per primary obgyn/general surgery/Urology -Of note, Lizama left in place and per Urology plan is to leave for 7 to 10 days and follow-up outpatient. -Strict I's and O's- significant urine output currently. ENDO No history of diabetes Continue home dose Synthroid HEME H&H currently stable will continue to monitor ID No suspicion for infectious process at this time Given Hx of AAA, important to avoid fluoroquinolone use. PIVs Full Code DVT PROPHYLAXIS -SCDs, Lovenox Dispo: ICU for monitoring (2) Status post bladder repair: (3) PVD (peripheral vascular disease): (4) STEMI (ST elevation myocardial infarction): Supervising Physician Co-Signing Physician Notes Dr. Damon was the resident-physician during care of patient. I separately evaluated patient for marcus portions of the history and the exam. I was present during the critical portion of medical decision making, and I discussed the case with the resident. I generally agree with the findings and plan except for any additions/exceptions noted. Patient is doing much better today. Denies any dizziness, no nausea or vomiting. No chest pain, no shortness of breath. Patient blood pressure has been on the lower side in the high 80s to low 90s sy stolic. As per the chiropractic teacher her blood pressure has always been on the lower side. Given that the patient had inferior wall NM if there is any hemodynamic instability we will start the patient on dobutamine and give her some IV fluids. Continue with beta-blockers, will start TYLER inhibitor once her blood pressure is able to tolerate. Continue with aspirin, statin and Brilinta. Cardiology on board. Patient is -2.3 L in the last 24 hours. She may total of 3.8 L of urine. Urine osmolality was 594 with urine specific gravity of 1.017. Urine sodium was greater than 140. He does not go with diabetes insipidus. We will just give her IV fluids. Patient has prolonged QTC and she takes venlafaxine. We will hold venlafaxine for the time being. Keep magnesium greater than 2, potassium greater than 4, phosphorus greater than 3. Continue with Lizama catheter as per urology recommendation. Continue to monitor the patient in the ICU for the time being as blood pressure still on the lower side. Start prophylactic Lovenox for DVT prophylaxis Subjective Pt was sitting up at bedside. Still with significant urine output despite being off of dobutamine. Has been having bowel movements. Has some dyspnea with exertion as she ambulates to the bathroom. States she still has some abdominal pain but denies BLEVINS, blurry vision, cough, sore throat, chest pain, palpitations, N/V, constipation, numbness or tingling. Has chronic runny nose. Review of Systems Review of Systems: All systems reviewed & are unremarkable except as noted in HPI & below Physical Exam Physical Exam: General: Alert, oriented. Sitting at bedside. Skin: Bruising on abdomen near surgical entry sites Psych: Appropriate mood and affect Neuro: No gross deficits HEENT: NC/AT Chest: Nontender to palpation. CV: RRR, Normal s1, s2. No murmurs appreciated Resp: Breath sounds with some faint crackles on the back, no increased effort of breathing. Abdomen: Soft, tender, bruising noted as above near port entry sites. Extremities: No edema in lower extremities bilaterally. MSK: Moves all extremities appropriately. Results & Data Vital Signs (Past 12 Hours) Vital Signs Temp Pulse Resp BP Pulse Ox 04/27/19 07:00 67 11 L 85/50 L 96 04/27/19 06:45 65 13 97 04/27/19 06:30 70 17 98 04/27/19 06:15 70 10 L 88/52 L 96 04/27/19 06:00 66 15 97 04/27/19 05:45 66 13 98 04/27/19 05:30 74 15 96 04/27/19 05:15 67 19 96 04/27/19 05:00 64 17 96/52 L 96 04/27/19 04:45 67 18 96 04/27/19 04:30 66 20 96 04/27/19 04:15 36.7 C 64 12 97 04/27/19 04:00 65 15 98/51 L 97 04/27/19 03:45 68 14 95 04/27/19 03:30 67 18 91 04/27/19 03:15 63 18 93 04/27/19 03:00 69 16 109/68 93 04/27/19 02:45 61 12 93 04/27/19 02:30 65 16 94 04/27/19 02:15 68 14 94 04/27/19 02:00 69 23 100/64 92 04/27/19 01:45 73 8 L 96 04/27/19 01:30 69 10 L 96 04/27/19 01:15 71 6 L 95 04/27/19 01:00 59 L 16 112/65 92 04/27/19 00:51 62 14 91/56 L 92 04/27/19 00:45 73 10 L 95 04/27/19 00:30 70 14 95 04/27/19 00:15 68 14 93 04/27/19 00:00 37 C 66 13 71/42 L 92 04/26/19 23:45 65 15 96 04/26/19 23:30 56 L 13 91 04/26/19 23:15 59 L 13 89 L 04/26/19 23:00 71 9 L 100/54 L 94 04/26/19 22:45 60 13 89 L 04/26/19 22:30 73 7 L 94 04/26/19 22:15 65 15 90 04/26/19 22:00 75 19 121/76 93 04/26/19 21:45 72 18 92 04/26/19 21:30 76 21 98 04/26/19 21:15 87 19 94 04/26/19 21:00 75 16 152/86 H 96 Laboratory Results 04/27/19 02:56 04/27/19 02:57 PG Care Time/CCT Total # of Minutes Spent Total Time Spent with Patient: Total time spent is greater than 50% in coordination of care (as documented) at patient's floor/unit and/or counseling patient: Critical Care Time: Yes Total Critical Care Time: 35 Resident Activity Tracking Resident Involvement: Resident Care Provided Care Provided: Adult Hospital Medicine
--- NOTE | 2019-04-27 08:56 | Hospitalist Progress Note ---
Date of Service April 27, 2019 Assessment & Plan (1) STEMI (ST elevation myocardial infarction): 58 y/o F with a PMH of AAA, PVD s/p left SFA stenting in 2013, tobacco use disorder, dyslipidemia who is POD#1 s/p robotic total laparoscopic hysterectomy, left salpingectomy, extensive lysis of adhesions who developed postoperative chest pain and was found to have an inferior wall STEMI. -Post op shoulder pain migrated to central 10/10 chest pain with associated nausea -Patient with significant family history of premature CAD, lifelong smoker -EKG revealed acute ST elevations in inferior leads. Initial troponin elevated at 2.8. CXR without acute abnormalities -cardiology was contacted and pt underwent cardiac cath, now s/p PCI of distal RCA w/2 overlapping bare-metal stents, on brillinta and ASA -plan to uptitrate beta-marcello, start ACEi as BP permits -pt hypotensive after SC, received 3L of IVF,was then started on dobutamine, IVF and dobutamine d/c'ed yesterday AM -hypotensive again this AM, received IVF bolus -Patient is in ICU for close hemodynamic monitoring and medical management Echo: LV normal in size, severe inferior wall hypokinesis, severe septal hypokinesis, EF 50 to 55%, RV systolic function normal, LA and RA size normal, no significant valvular pathology. (2) S/P hysterectomy with oophorectomy: POD#3 s/p robotic total laparoscopic hysterectomy, left salpingectomy, extensive lysis of adhesions by Dr. Orozco -Mgmt per obgyn Anemia normocytic Hgb 11.2,secondary to intraop. blood loss, and dilutional will cont. to monitor, Hgb goal>8 Anxiety/Depression - cont. home effexor - understandably, pt more anxious after having major med.events - now she is feeling well, feels "[place] it happened in the hospital", daughter visits her regularly which also helps Constipation - pt is passing flatus and having light BMs (3) AAA (abdominal aortic aneurysm): Follows with Dr. Acosta for 4 cm AAA -diameter increased from 3.5 cm one year ago -Abdominal aortic duplex report 12/2018: There is evidence of a 4.0 centimeter abdominal aortic aneurysm. Color Doppler imaging demonstrates flow consistent with a patent lumen at and distal to the aortic aneurysm. (4) PVD (peripheral vascular disease): Peripheral vascular disease with history of left SFA stenting 05/2014 with angioplasty for restenosis in 2015 while living in [place], [place] Code status: FULL PCP: Misha Acosta Subjective Patient is lying in bed, calm, in no acute distress. Denies any fevers, chills. Denies any chest pain or palpitations, or shortness of breath. She has some tenderness in her abdomen especially when she moves. She has had small BMs. Ramos in, she has good urine output. However hypotensive again this morning, required IVF. Review of Systems Review of Systems: At least ten systems reviewed and negative except as noted in the HPI. Respiratory: + cough (on deep inspiration); no dyspnea Gastrointestinal: + abdominal pain (post-surg. ) Physical Exam Constitutional: well developed and well nourished; no acute distress Eyes: PERRL, conjunctivae normal, anicteric sclerae ENMT: external ear and nose normal, oropharynx normal Respiratory: normal respiratory effort, lungs clear to auscultation Cardiovascular: RRR, no murmur, no edema Vessels: normal peripheral pulses Chest (Breasts): normal inspection/palpation of breasts Gastrointestinal (Abdomen): Inspection/Auscultation: normal bowel sounds; + abdomen abnormal to inspection (several post.surg. inc. sites - w/o erythema, edema, drainage) Percussion/Palpation: + abdomen tender (diffusely to palp. / post. surg.) Musculoskeletal: Head/Neck/Chest: normocephalic, head atraumatic and neck supple Extremities: extremities normal to inspection and strength 5/5 throughout Skin: no rashes, warm and dry Neurologic: PERRL, EOMI, accommodation nl, no face palsy, no dysarthria Psychiatric: A+Ox3, euthymic affect Speech: normal rate/rhythm/volume of speech Genitourinary: no CVA tenderness Lymphatic: no lymphedema and no cervical lymphadenopathy Results & Data Vital Signs (Past 12 Hours) Vital Signs Temp Pulse Resp BP Pulse Ox 04/27/19 07:00 67 11 L 85/50 L 96 04/27/19 06:45 65 13 97 04/27/19 06:30 70 17 98 04/27/19 06:15 70 10 L 88/52 L 96 04/27/19 06:00 66 15 97 04/27/19 05:45 66 13 98 04/27/19 05:30 74 15 96 04/27/19 05:15 67 19 96 04/27/19 05:00 64 17 96/52 L 96 04/27/19 04:45 67 18 96 04/27/19 04:30 66 20 96 04/27/19 04:15 36.7 C 64 12 97 04/27/19 04:00 65 15 98/51 L 97 04/27/19 03:45 68 14 95 04/27/19 03:30 67 18 91 04/27/19 03:15 63 18 93 04/27/19 03:00 69 16 109/68 93 04/27/19 02:45 61 12 93 04/27/19 02:30 65 16 94 04/27/19 02:15 68 14 94 04/27/19 02:00 69 23 100/64 92 04/27/19 01:45 73 8 L 96 04/27/19 01:30 69 10 L 96 04/27/19 01:15 71 6 L 95 04/27/19 01:00 59 L 16 112/65 92 04/27/19 00:51 62 14 91/56 L 92 04/27/19 00:45 73 10 L 95 04/27/19 00:30 70 14 95 04/27/19 00:15 68 14 93 04/27/19 00:00 37 C 66 13 71/42 L 92 04/26/19 23:45 65 15 96 04/26/19 23:30 56 L 13 91 04/26/19 23:15 59 L 13 89 L 04/26/19 23:00 71 9 L 100/54 L 94 04/26/19 22:45 60 13 89 L 04/26/19 22:30 73 7 L 94 04/26/19 22:15 65 15 90 04/26/19 22:00 75 19 121/76 93 04/26/19 21:45 72 18 92 04/26/19 21:30 76 21 98 04/26/19 21:15 87 19 94 04/26/19 21:00 75 16 152/86 H 96 Laboratory Results 04/27/19 04/27/19 04/27/19 Range/Units 08:30 08:30 08:30 WBC (4.8-10.8) K/uL RBC (4.2-5.4) M/uL Hgb (12.0-16.0) g/dL Hct (37-47) % MCV (80-100) fL MCH (25-34) pg MCHC (32-36) g/dL RDW Std Deviation (36.4-46.3) fL RDW Coeff of Karthikeyan (11.5-14.5) % Plt Count (130-400) K/uL MPV (7.4-10.4) fL Immature Gran % (Auto) % Neut % (Auto) % Lymph % (Auto) % [place] % (Auto) % Eos % (Auto) % Baso % (Auto) % Immature Gran # (Auto) (0.00-0.02) K/uL Neut # (Auto) (1.4-6.5) K/uL Lymph # (Auto) (1.2-3.4) K/uL [place] # (Auto) (0.11-0.59) K/uL Eos # (Auto) (0-0.5) K/uL Baso # (Auto) (0-0.2) K/uL Sodium (136-145) mmol/L Potassium (3.5-5.1) mmol/L Chloride (98-107) mmol/L Carbon Dioxide (21-32) mmol/L Anion Gap (3-11) BUN (7-18) mg/dl Creatinine (0.6-1.2) mg/dl Est Cr Clr Drug Dosing ml/min Est GFR ( Amer) Est GFR (Non-Af Amer) BUN/Creatinine Ratio (10-20) Glucose (70-99) mg/dl Calcium (8.5-10.1) mg/dl Phosphorus (2.5-4.9) mg/dl Magnesium (1.8-2.4) mg/dl Troponin I (0-0.045) ng/ml Urine Color [place] Urine Appearance Cloudy A (Clear) Urine pH 7.0 (4.5-7.5) Ur Specific [place] 1.017 (1.000-1.030) Urine Protein Trace H (Negative) Urine Glucose (UA) Negative (Negative) Urine Ketones Negative (Negative) Urine Blood 3+ H (Negative) Urine Nitrite Negative (Negative) Urine Bilirubin Negative (Negative) Urine Urobilinogen Negative (Negative) Ur Leukocyte Esterase 1+ H (Negative) Urine WBC (Auto) 10-30 H (0-5) /hpf Urine RBC (Auto) >30 H (0-4) /hpf U Hyaline Cast (Auto) 1-5 (0-5) /lpf U Epithel Cells (Auto) 10-20 H (0-5) /lpf Urine Bacteria (Auto) Negative (Negative) Urine Osmolality Pending Ur Random Sodium Pending 04/27/19 04/27/19 04/26/19 Range/Units 02:57 02:56 12:54 WBC 9.01 (4.8-10.8) K/uL RBC 3.69 L (4.2-5.4) M/uL Hgb 11.2 L (12.0-16.0) g/dL Hct 34.2 L (37-47) % MCV 92.7 (80-100) fL MCH 30.4 (25-34) pg MCHC 32.7 (32-36) g/dL RDW Std Deviation 47.2 H (36.4-46.3) fL RDW Coeff of Karthikeyan 13.9 (11.5-14.5) % Plt Count 163 (130-400) K/uL MPV 11.1 H (7.4-10.4) fL Immature Gran % (Auto) 0.2 % Neut % (Auto) 61.5 % Lymph % (Auto) 28.9 % [place] % (Auto) 6.0 % Eos % (Auto) 3.0 % Baso % (Auto) 0.4 % Immature Gran # (Auto) 0.02 (0.00-0.02) K/uL Neut # (Auto) 5.54 (1.4-6.5) K/uL Lymph # (Auto) 2.60 (1.2-3.4) K/uL [place] # (Auto) 0.54 (0.11-0.59) K/uL Eos # (Auto) 0.27 (0-0.5) K/uL Baso # (Auto) 0.04 (0-0.2) K/uL Sodium 143 144 (136-145) mmol/L Potassium 3.8 3.8 (3.5-5.1) mmol/L Chloride 112 H 112 H (98-107) mmol/L Carbon Dioxide 25 27 (21-32) mmol/L Anion Gap 6.0 5.0 (3-11) BUN 10 9 (7-18) mg/dl Creatinine 0.73 0.73 (0.6-1.2) mg/dl Est Cr Clr Drug Dosing 93.0 93.0 ml/min Est GFR ( Amer) 103.8 103.8 Est GFR (Non-Af Amer) 89.5 89.5 BUN/Creatinine Ratio 13.2 12.7 (10-20) Glucose 96 105 H (70-99) mg/dl Calcium 8.1 L 7.9 L (8.5-10.1) mg/dl Phosphorus 1.9 L (2.5-4.9) mg/dl Magnesium 2.0 2.0 (1.8-2.4) mg/dl Troponin I 31.900 H* (0-0.045) ng/ml Urine Color Urine Appearance (Clear) Urine pH (4.5-7.5) Ur Specific [place] (1.000-1.030) Urine Protein (Negative) Urine Glucose (UA) (Negative) Urine Ketones (Negative) Urine Blood (Negative) Urine Nitrite (Negative) Urine Bilirubin (Negative) Urine Urobilinogen (Negative) Ur Leukocyte Esterase (Negative) Urine WBC (Auto) (0-5) /hpf Urine RBC (Auto) (0-4) /hpf U Hyaline Cast (Auto) (0-5) /lpf U Epithel Cells (Auto) (0-5) /lpf Urine Bacteria (Auto) (Negative) Urine Osmolality Ur Random Sodium Medications Administered Current Inpatient Medications Acetaminophen (Tylenol) 650 mg PO Q6H PRN PRN Reason: pain, headache or fever Stop: 05/24/19 16:53 Aspirin (Ecotrin Ectab) 81 mg PO QPM NATHANIEL Stop: 05/24/19 20:59 Last Admin: 04/26/19 21:07 Dose: 81 mg Documented by: Atorvastatin Calcium (Lipitor) 40 mg PO PM NATHANIEL Stop: 05/24/19 20:59 Last Admin: 04/26/19 21:07 Dose: 40 mg Documented by: Bisacodyl (Dulcolax) 10 mg NV DAILY PRN PRN Reason: Constipation or flatulance Stop: 05/24/19 16:53 Bisacodyl (Dulcolax) 10 mg NV Q12 PRN PRN Reason: Constipation Stop: 05/26/19 08:50 Last Admin: 04/26/19 16:22 Dose: 10 mg Documented by: Carisoprodol (Soma) 350 mg PO QPM [facility] Stop: 05/24/19 20:59 Last Admin: 04/26/19 21:08 Dose: 350 mg Documented by: Docusate Sodium (Colace) 100 mg PO BID NATHANIEL Stop: 05/24/19 20:59 Last Admin: 04/26/19 21:08 Dose: 100 mg Documented by: Ezetimibe (Zetia) 10 mg PO QPM NATHANIEL Stop: 05/24/19 20:59 Last Admin: 04/26/19 21:07 Dose: 10 mg Documented by: Fluticasone Propionate (Flonase) 1 sprays NA DAILY [facility] Stop: 05/25/19 08:59 Last Admin: 04/26/19 08:20 Dose: 1 sprays Documented by: Potassium Phosphate 21 mmol/ (Sodium Chloride) 507 mls @ 88 mls/hr IV ONE ONE Stop: 04/27/19 10:15 Last Admin: 04/27/19 05:24 Dose: 88 mls/hr Documented by: Levothyroxine Sodium (Synthroid) 75 mcg PO QPM [facility] Stop: 05/24/19 20:59 Last Admin: 04/26/19 21:07 Dose: 75 mcg Documented by: Magnesium Hydroxide (Milk Of Magnesia) 30 ml PO Q6H PRN PRN Reason: Constipation Stop: 05/24/19 16:53 Metoprolol Tartrate (Lopressor) 12.5 mg PO BID [facility] Stop: 05/26/19 12:59 Last Admin: 04/26/19 21:07 Dose: 12.5 mg Documented by: Miscellaneous (Icu Electrolyte Replacement Protocol) 1 ea N/A UD PRN PRN Reason: for e-lyte repletion Stop: 05/02/19 14:08 Oxycodone/Acetaminophen (Percocet 5mg/325mg) 1 tab PO Q4H PRN PRN Reason: Pain Scale 1,2,3,4,5 Stop: 05/08/19 16:53 Last Admin: 04/27/19 05:29 Dose: 1 tab Documented by: Oxycodone/Acetaminophen (Percocet 5mg/325mg) 2 tab PO Q4H PRN PRN Reason: Pain Scale 6,7,8,9,10 Stop: 05/08/19 16:53 Simethicone (Mylicon) 80 mg PO TID PRN PRN Reason: Gas Stop: 05/24/19 16:53 Ticagrelor (Brilinta) 90 mg PO BID [facility] Stop: 05/25/19 11:59 Last Admin: 04/26/19 21:07 Dose: 90 mg Documented by: Venlafaxine HCl (Effexor) 37.5 mg PO QPM [facility] Stop: 05/24/19 20:59 Last Admin: 04/26/19 21:08 Dose: 37.5 mg Documented by:
--- NOTE | 2019-04-27 09:20 | Cardiology Progress Note ---
Date of Service April 27, 2019 Assessment & Plan (1) STEMI (ST elevation myocardial infarction): (2) S/P hysterectomy with oophorectomy: (3) PVD (peripheral vascular disease): (4) AAA (abdominal aortic aneurysm): Asymptomatic hypotension recorded this morning. Recommend restart IV flui d, normal saline at 80 cc/h. Encouraged oral intake. New low-dose beta-marcello therapy, Lopressor 12.5 mg every 12 hours. Discussed importance of continuing dual antiplatelet therapy for minimum of 1 month post bare-metal stent implantation, however, preferably 1 year post myocardial infarction. Subjective Patient seen and examined at the bedside. Denies chest pain or shortness of breath. Fluid balance -3 L over the past 24 hours without diuretic therapy. Intermittent hypotension noted. Patient is asymptomatic. Denies lightheadedness, dizziness, syncope, near syncope. Frequent ventricular ectopy and short 2-3 beat salvos of nonsustained ventricular tachycardia recorded on telemetry yesterday. PVCs less frequent this morning. Patient denies palpitations. Oral intake has been marginal. Abdominal discomfort controlled. No signs/symptoms of GI/ blood loss. She offers no other concerns/complaints at this time. Review of Systems Review of Systems: All systems reviewed & are unremarkable except as noted in HPI & below Physical Exam Physical Exam: General: NAD, AAO x3, well nourished. HEENT: Normocephalic. Atraumatic. Conjunctiva pink, no scleral icterus. Neck: No carotid bruits, the carotid upstrokes are brisk. No JVD. No HJR Heart: Regular normal S-1 and S-2 no S-3 or S-4 gallop. No murmurs or rub appreciated. PMI is not displaced. No RV heave. Lungs: Clear bilateral without rales , rhonchi, or wheeze. Abdomen: Soft, diffusely tender, no drainage. Surgical wounds clean, dry, intact. No abdominal bruits. Extremities: No clubbing, cyanosis, or edema. Pulses: radial=2/4, Dorsalis pedis =2/4, posterior tibial=2/4. Neuro: Cranial nerves grossly intact. No focal motor deficit. Results & Data Vital Signs (Past 12 Hours) Vital Signs Temp Pulse Resp BP Pulse Ox 04/27/19 07:00 67 11 L 85/50 L 96 04/27/19 06:45 65 13 97 04/27/19 06:30 70 17 98 04/27/19 06:15 70 10 L 88/52 L 96 04/27/19 06:00 66 15 97 04/27/19 05:45 66 13 98 04/27/19 05:30 74 15 96 04/27/19 05:15 67 19 96 04/27/19 05:00 64 17 96/52 L 96 04/27/19 04:45 67 18 96 04/27/19 04:30 66 20 96 04/27/19 04:15 36.7 C 64 12 97 04/27/19 04:00 65 15 98/51 L 97 04/27/19 03:45 68 14 95 04/27/19 03:30 67 18 91 04/27/19 03:15 63 18 93 04/27/19 03:00 69 16 109/68 93 04/27/19 02:45 61 12 93 04/27/19 02:30 65 16 94 04/27/19 02:15 68 14 94 04/27/19 02:00 69 23 100/64 92 04/27/19 01:45 73 8 L 96 04/27/19 01:30 69 10 L 96 04/27/19 01:15 71 6 L 95 04/27/19 01:00 59 L 16 112/65 92 04/27/19 00:51 62 14 91/56 L 92 04/27/19 00:45 73 10 L 95 04/27/19 00:30 70 14 95 04/27/19 00:15 68 14 93 04/27/19 00:00 37 C 66 13 71/42 L 92 04/26/19 23:45 65 15 96 04/26/19 23:30 56 L 13 91 04/26/19 23:15 59 L 13 89 L 04/26/19 23:00 71 9 L 100/54 L 94 04/26/19 22:45 60 13 89 L 04/26/19 22:30 73 7 L 94 04/26/19 22:15 65 15 90 04/26/19 22:00 75 19 121/76 93 04/26/19 21:45 72 18 92 04/26/19 21:30 76 21 98 Laboratory Results Laboratory Results - last 24 hr 04/26/19 04/27/19 04/27/19 12:54 02:56 02:57 WBC 9.01 RBC 3.69 L Hgb 11.2 L Hct 34.2 L MCV 92.7 MCH 30.4 MCHC 32.7 RDW Std Deviation 47.2 H RDW Coeff of Karthikeyan 13.9 Plt Count 163 MPV 11.1 H Immature Gran % (Auto) 0.2 Neut % (Auto) 61.5 Lymph % (Auto) 28.9 [place] % (Auto) 6.0 Eos % (Auto) 3.0 Baso % (Auto) 0.4 Immature Gran # (Auto) 0.02 Neut # (Auto) 5.54 Lymph # (Auto) 2.60 [place] # (Auto) 0.54 Eos # (Auto) 0.27 Baso # (Auto) 0.04 Sodium 144 143 Potassium 3.8 3.8 Chloride 112 H 112 H Carbon Dioxide 27 25 Anion Gap 5.0 6.0 BUN 9 10 Creatinine 0.73 0.73 Est Cr Clr Drug Dosing 93.0 93.0 Est GFR ( Amer) 103.8 103.8 Est GFR (Non-Af Amer) 89.5 89.5 BUN/Creatinine Ratio 12.7 13.2 Glucose 105 H 96 Calcium 7.9 L 8.1 L Phosphorus 1.9 L Magnesium 2.0 2.0 Troponin I 31.900 H* Urine Color Urine Appearance Urine pH Ur Specific [place] Urine Protein Urine Glucose (UA) Urine Ketones Urine Blood Urine Nitrite Urine Bilirubin Urine Urobilinogen Ur Leukocyte Esterase Urine WBC (Auto) Urine RBC (Auto) U Hyaline Cast (Auto) U Epithel Cells (Auto) Urine Bacteria (Auto) Urine Osmolality Ur Random Sodium 04/27/19 04/27/19 04/27/19 08:30 08:30 08:30 WBC RBC Hgb Hct MCV MCH MCHC RDW Std Deviation RDW Coeff of Karthikeyan Plt Count MPV Immature Gran % (Auto) Neut % (Auto) Lymph % (Auto) [place] % (Auto) Eos % (Auto) Baso % (Auto) Immature Gran # (Auto) Neut # (Auto) Lymph # (Auto) [place] # (Auto) Eos # (Auto) Baso # (Auto) Sodium Potassium Chloride Carbon Dioxide Anion Gap BUN Creatinine Est Cr Clr Drug Dosing Est GFR ( Amer) Est GFR (Non-Af Amer) BUN/Creatinine Ratio Glucose Calcium Phosphorus Magnesium Troponin I Urine Color [place] Urine Appearance Cloudy A Urine pH 7.0 Ur Specific [place] 1.017 Urine Protein Trace H Urine Glucose (UA) Negative Urine Ketones Negative Urine Blood 3+ H Urine Nitrite Negative Urine Bilirubin Negative Urine Urobilinogen Negative Ur Leukocyte Esterase 1+ H Urine WBC (Auto) 10-30 H Urine RBC (Auto) >30 H U Hyaline Cast (Auto) 1-5 U Epithel Cells (Auto) 10-20 H Urine Bacteria (Auto) Negative Urine Osmolality 579 Ur Random Sodium 140
[2019-04-27] MEDS: DOCUSATE SODIUM 100 MG CAP PO SCH ×2 (09:39→21:04)
[2019-04-27] MEDS: METOPROLOL TARTRATE 25 MG TAB PO SCH (09:39)
[2019-04-27] MEDS: TICAGRELOR 90 MG TAB PO SCH ×2 (09:39→21:04)
[2019-04-27] MEDS: FLUTICASONE PROPIONATE NA SPR 16 GM BTL SCH (09:40)
[2019-04-27] MEDS ORDERED: SODIUM CHLORIDE 0.9% 1000ML 1,000 ML IV SCH (10:30)
[2019-04-27 11:06] LABS: INR 1.1 (0.9-1.1); Prothrombin Time 11.1 Seconds (9.0-12.0)
[2019-04-27] MEDS: ENOXAPARIN INJ 40 MG/0.4 ML SYR SQ SCH (11:27)
--- NOTE | 2019-04-27 11:36 | Urology Progress Note ---
Date of Service April 27, 2019 Assessment & Plan (1) Status post bladder repair: 58 YO F POD#3 s/p robotic hysterectomy, extensive lysis of adhesions, cystotomy repair. Feeling well today, Ramos not bothersome. Will continue to intermittently follow. Subjective 58 YO F POD#3 s/p robotic hysterectomy, extensive lysis of adhesions, cystotomy repair. Patient is sitting up at bedside upon exam today. Reports feeling very well. Ramos is not bothersome. No fevers/chills. Review of Systems Review of Systems: Per HPI. Physical Exam Physical Exam: WN/WD NAD. Resp effort normal. No JVD. Abd nondistended. : Ramos in place, patent, draining yellow urine. A&OX3, appropriate affect. Results & Data Vital Signs (Past 12 Hours) Vital Signs Temp Pulse Resp BP Pulse Ox 04/27/19 07:00 67 11 L 85/50 L 96 04/27/19 06:45 65 13 97 04/27/19 06:30 70 17 98 04/27/19 06:15 70 10 L 88/52 L 96 04/27/19 06:00 66 15 97 04/27/19 05:45 66 13 98 04/27/19 05:30 74 15 96 04/27/19 05:15 67 19 96 04/27/19 05:00 64 17 96/52 L 96 04/27/19 04:45 67 18 96 04/27/19 04:30 66 20 96 04/27/19 04:15 36.7 C 64 12 97 04/27/19 04:00 65 15 98/51 L 97 04/27/19 03:45 68 14 95 04/27/19 03:30 67 18 91 04/27/19 03:15 63 18 93 04/27/19 03:00 69 16 109/68 93 04/27/19 02:45 61 12 93 04/27/19 02:30 65 16 94 04/27/19 02:15 68 14 94 04/27/19 02:00 69 23 100/64 92 04/27/19 01:45 73 8 L 96 04/27/19 01:30 69 10 L 96 04/27/19 01:15 71 6 L 95 04/27/19 01:00 59 L 16 112/65 92 04/27/19 00:51 62 14 91/56 L 92 04/27/19 00:45 73 10 L 95 04/27/19 00:30 70 14 95 04/27/19 00:15 68 14 93 04/27/19 00:00 37 C 66 13 71/42 L 92 04/26/19 23:45 65 15 96 PG Care Time/CCT Total # of Minutes Spent Total Time Spent with Patient: Total time spent is greater than 50% in coordination of care (as documented) at patient's floor/unit and/or counseling patient:
--- NOTE | 2019-04-27 14:49 | Surgery Progress Note ---
Date of Service April 27, 2019 Assessment & Plan (1) Intra-abdominal adhesions: Postoperative day #3 status post lysis of extensive adhesions with hysterectomy and repair of bladder injury in the dome No evidence of bowel injury Continue to ambulate Bladder repair as per urology New DE as per cardiology Subjective Postoperative day #3, status post laparoscopic robotic assisted hysterectomy with lysis of extensive adhesions Mild central abdominal discomfort that is pressure-like Denies nausea and vomiting Tolerating regular diet Passing flatus Moving bowels "slowly" No melena or hematochezia Denies chest pain, status post acute DE postoperatively Physical Exam Gastrointestinal (Abdomen): Inspection/Auscultation: + abdominal surgical incision (Ecchymosis surrounding incisions but otherwise without erythema or drainage); abdomen not distended Percussion/Palpation: + abdomen tender (Incisional tenderness but to moderate palpation) and abdomen soft Results & Data Vital Signs (Past 12 Hours) Vital Signs Temp Pulse Resp BP Pulse Ox 04/27/19 12:34 63 23 04/27/19 12:15 54 L 18 98 04/27/19 12:00 56 L 18 98 04/27/19 11:45 59 L 28 H 98 04/27/19 11:30 71 24 97 04/27/19 11:15 57 L 9 L 97 04/27/19 11:00 48 L 12 101/55 L 97 04/27/19 10:45 57 L 16 95 04/27/19 10:30 57 L 19 85/44 L 95 04/27/19 10:15 58 L 28 H 95 04/27/19 10:10 59 L 19 87/51 L 98 04/27/19 10:00 63 30 H 04/27/19 09:45 71 18 04/27/19 09:30 65 27 H 04/27/19 09:15 66 23 04/27/19 09:04 78 19 81/49 L 04/27/19 09:02 71 31 H 79/48 L 04/27/19 09:00 68 17 76/45 L 04/27/19 08:45 67 20 04/27/19 08:39 71 16 04/27/19 08:15 69 20 04/27/19 08:03 64 15 97/60 L 04/27/19 08:01 73 16 04/27/19 07:45 69 18 95 04/27/19 07:30 76 13 96 04/27/19 07:15 67 16 96 04/27/19 07:00 67 11 L 85/50 L 96 04/27/19 06:45 65 13 97 04/27/19 06:30 70 17 98 04/27/19 06:15 70 10 L 88/52 L 96 04/27/19 06:00 66 15 97 04/27/19 05:45 66 13 98 04/27/19 05:30 74 15 96 04/27/19 05:15 67 19 96 04/27/19 05:00 64 17 96/52 L 96 04/27/19 04:45 67 18 96 04/27/19 04:30 66 20 96 04/27/19 04:15 36.7 C 64 12 97 04/27/19 04:00 65 15 98/51 L 97 04/27/19 03:45 68 14 95 04/27/19 03:30 67 18 91 04/27/19 03:15 63 18 93 04/27/19 03:00 69 16 109/68 93
[2019-04-27] MEDS: EZETIMIBE 10 MG TABLET PO SCH (21:04)
[2019-04-27] MEDS: CARISOPRODOL 350 MG TABLET PO SCH (21:04)
[2019-04-27] MEDS: ASPIRIN 81 MG ECTAB PO SCH (21:04)
[2019-04-27] MEDS: LEVOTHYROXINE SODIUM 75 MCG TABLET PO SCH (21:04)
[2019-04-27] MEDS: ATORVASTATIN 40 MG TAB PO SCH (21:04)
[2019-04-28] MEDS: OXYCODONE/ACETAMINOPHEN 5mg/325mg TAB PO PRN ×4 (03:33→21:23)
[2019-04-28 04:36] LABS: Basophils # (auto) 0.05 K/uL (0-0.2); Basophils % (auto) 0.7 %; Eosinophils # (auto) 0.36 K/uL (0-0.5); Eosinophils % (auto) 5.1 %; Hemoglobin 11.6 g/dL (12.0-16.0); Immature Granulocytes # (auto) 0.01 K/uL (0.00-0.02); Immature Granulocytes % (auto) 0.1 %; Lymphocytes # (auto) 2.02 K/uL (1.2-3.4); Lymphocytes % (auto) 28.4 %; Mean Corpuscular Hemoglobin 30.4 pg (25-34); Mean Corpuscular Hgb Conc 34.1 g/dL (32-36); Mean Corpuscular Volume 89.2 fL (80-100); Mean Platelet Volume 10.7 fL (7.4-10.4); Neutrophils # (auto) 4.17 K/uL (1.4-6.5); Neutrophils % (auto) 58.7 %; Platelet Count 168 K/uL (130-400); RDW Coefficient of Variation 13.3 % (11.5-14.5); RDW Standard Deviation 43.3 fL (36.4-46.3); Red Blood Count 3.81 M/uL (4.2-5.4); White Blood Count 7.11 K/uL (4.8-10.8)
[2019-04-28 04:57] LABS: BUN Creatinine Ratio 15.4 (10-20); Calcium 8.1 mg/dl (8.5-10.1); Creatinine Clr Calc Pharmacy 99.8 ml/min; Est GFR (African American) 110.2; Est GFR (Non-African American) 95.1; Magnesium 1.9 mg/dl (1.8-2.4); Potassium 3.5 mmol/L (3.5-5.1)
[2019-04-28 05:01] LABS: Phosphorus 2.8 mg/dl (2.5-4.9)
[2019-04-28] MEDS ORDERED: POTASSIUM CHLORIDE 20 MEQ TABCR PO STA (05:16)
--- NOTE | 2019-04-28 07:49 | Surgery Progress Note ---
Date of Service April 28, 2019 Assessment & Plan (1) Intra-abdominal adhesions: Postoperative day #4, status post extensive lysis of adhesions Patient doing well No evidence of bowel injury Continue with diet Encourage ambulation Status post hysterectomy as per [employer]IVE Status post repair of abdominal bladder as per urology Subjective Postoperative day #4, status post extensive lysis of adhesions and hysterectomy as well as bladder repair Patient moving bowels Abdominal discomfort unchanged Denies nausea and vomiting Tolerating regular diet Physical Exam Gastrointestinal (Abdomen): Inspection/Auscultation: + abdominal surgical incision (Surrounding ecchymosis beginning to resolve, no erythema, no drainage); abdomen not distended Percussion/Palpation: + abdomen tender (Diffuse incisional) and abdomen soft Results & Data Vital Signs (Past 12 Hours) Vital Signs Temp Pulse Resp BP Pulse Ox 04/28/19 04:00 37.1 C 74 20 124/75 96 04/28/19 03:00 71 29 H 97/66 L 96 04/28/19 02:00 74 20 128/81 93 04/28/19 01:00 75 19 117/76 96 04/28/19 00:00 37.3 C 74 24 123/63 94 04/27/19 23:00 70 32 H 101/62 96 04/27/19 22:00 73 24 111/69 94 04/27/19 21:00 61 23 148/80 H 97 04/27/19 20:30 68 28 H 141/87 H 97 04/27/19 20:00 37.5 C 64 24 133/90 95
[2019-04-28] MEDS: ENOXAPARIN INJ 40 MG/0.4 ML SYR SQ SCH (08:05)
[2019-04-28] MEDS: TICAGRELOR 90 MG TAB PO SCH ×2 (08:05→21:23)
[2019-04-28] MEDS: FLUTICASONE PROPIONATE NA SPR 16 GM BTL SCH (08:06)
[2019-04-28] MEDS: DOCUSATE SODIUM 100 MG CAP PO SCH ×2 (08:11→21:23)
[2019-04-28] MEDS: MAGNESIUM OXIDE 400 MG TAB PO SCH ×2 (08:15→21:25)
--- NOTE | 2019-04-28 08:42 | Critical Care Progress Note ---
Date of Service April 28, 2019 Assessment & Plan (1) Admitted to intensive care unit: Reason Critically Ill: 58-year-old female s/p total hysterectomy with inferior STEMI, post stent placement in RCA. ICU monitoring currently for hypotension. Neuro CAM ICU: Negative pain management postop per primary team Cardiac STEMI -patient experienced chest pain after surgery and was found to have ST elevation in inferior leads -S/P cardiac cath with stent x2 to RCA with immediate relief of chest pain -trops have peaked and are downtrending -EKG 04/27- sinus arythmia with rate of 77, qtc prolonged at 563. Venlafaxine on hold. -Echo with EF of 50-55%, severe hypokinesis of inferior wall, septum -Pt currently normotensive, Hx of soft BPs in office before ID -Hypotension related to inferior ID/right sided dysfunction has been treated in ICU with dobutamine and fluids -Currently off of dobutamine, on fluids. Monitoring BP which is still soft. -Continue ASA, Lipitor, Brilinta -Appreciate cardiology recs AAA -followed as outpatient, reportedly grew from 3.5 cm to 4 cm over the past year -advise no fluoroquinolone use, close BP monitoring to avoid hypertension. Respiratory -Currently on room air, saturating well -chest XR with no evidence of fluid overload. GI -Heart healthy diet -No BM yet postop, management per primary team RENAL/LYTES -Creatinine and electrolytes stable -lizama in, with extensive urine output even off dobutamine. -UA, urine osmolality, urine Na with no evidence of DI -will keep lizama in as per Urology instructions -will monitor with routine BMPs Hx of HSILstatus post total hysterectomy 04/24, reportedly extensive surgery with numerous adhesions, bladder repair -management postop per primary obgyn/general surgery/Urology -Of note, Lizama left in place and per Urology plan is to leave for 7 to 10 days and follow-up outpatient. -Strict I's and O's- significant urine output currently. ENDO No history of diabetes Continue home dose Synthroid HEME H&H currently stable will continue to monitor ID No suspicion for infectious process at this time Given Hx of AAA, important to avoid fluoroquinolone use. PIVs Full Code DVT PROPHYLAXIS -SCDs, Lovenox Dispo: ICU for monitoring (2) Status post bladder repair: (3) PVD (peripheral vascular disease): (4) STEMI (ST elevation myocardial infarction): Supervising Physician Co-Signing Physician Notes Dr. Damon was the resident-physician during care of patient. I separately evaluated patient for marcus portions of the history and the exam. I was present during the critical portion of medical decision making, and I discussed the case with the resident. I generally agree with the findings and plan except for any additions/exceptions noted. Patient seen and examined at bedside. Feeling much better. No dizziness, no nausea or vomiting. No shortness of breath. No episodes of hypotension overnight. Beta-blockers were on hold yesterday as patient had episodes of bradycardia but since the last 24 hours there were no episodes of bradycardia will restart low-dose metoprolol. Continue with beta-blockers, will start TYLER inhibitor once her blood pressure is able to tolerate. Continue with aspirin, statin and Brilinta. Cardiology on board. Patient has prolonged QTC and she takes venlafaxine. Venlafaxine on hold. Keep magnesium greater than 2, potassium greater than 4, phosphorus greater than 3. Repeat EKG from today shows QTC of 463. Continue with Lizama catheter as per urology recommendation. Patient hemodynamically stable to be transferred out to telemetry. Subjective Pt states she's doing well. Was seated up at bedside, eating. Currently denies chest pain, SOB, palpitations. Overnight, stable. Still with significant urine output but stable enough for downgrade. Review of Systems 2 Review of Systems: All systems reviewed & are unremarkable except as noted in HPI & below Physical Exam Physical Exam: General: Alert, oriented. Sitting at bedside. Skin: Bruising on abdomen near surgical entry sites Psych: Appropriate mood and affect Neuro: No gross deficits HEENT: NC/AT Chest: Nontender to palpation. CV: RRR, Normal s1, s2. No murmurs appreciated Resp: Breath sounds with some faint crackles on the back, no increased effort of breathing. Abdomen: Soft, tender, bruising noted as above near port entry sites. Extremities: No edema in lower extremities bilaterally. MSK: Moves all extremities appropriately. Results & Data Vital Signs (Past 12 Hours) Vital Signs Temp Pulse Resp BP Pulse Ox 04/28/19 04:00 37.1 C 74 20 124/75 96 04/28/19 03:00 71 29 H 97/66 L 96 04/28/19 02:00 74 20 128/81 93 04/28/19 01:00 75 19 117/76 96 04/28/19 00:00 37.3 C 74 24 123/63 94 04/27/19 23:00 70 32 H 101/62 96 04/27/19 22:00 73 24 111/69 94 04/27/19 21:00 61 23 148/80 H 97 04/28/19 04:18 04/28/19 04:18 PG Care Time/CCT Total # of Minutes Spent Total Time Spent with Patient: Total time spent is greater than 50% in coordination of care (as documented) at patient's floor/unit and/or counseling patient: Critical Care Time: Yes Total Critical Care Time: 35 Resident Activity Tracking Resident Involvement: Resident Care Provided Care Provided: Adult Hospital Medicine
--- NOTE | 2019-04-28 08:52 | Gynecologic Progress Note ---
Date of Service April 28, 2019 Assessment & Plan (1) S/P hysterectomy with oophorectomy: 58yo post op day 4 from above noted procedures. Course complicated by acute NE and cystotomy. Doing well today - Pain controlled - Meeting all post operative goals - NE: Continue per ICU res with transition to IM primary with transition to floor status - Cystotomy: Per Urology. Ramos draining clear and patient tolerating well. (2) STEMI (ST elevation myocardial infarction): Subjective Patient doing well post op day 4 from a complicated hysterectomy with extensive lysis of adhesions and cystotomy s/p repair. Post op course complicated by acute NE s/p cardiac cath w/ stent placement. No acute events overnight. patient reports that she is feeling well. Patient meeting all post operative goals. Physical Exam Constitutional: WD/WN, vitals as above Gastrointestinal (Abdomen): Inspection/Auscultation: abdomen normal to inspection Percussion/Palpation: abdomen soft; abdomen nontender, no guarding and abdomen not rigid Incisions with underlying bruising but otherwise healing well. Psychiatric: A+Ox3, euthymic affect Results & Data Vital Signs (Past 12 Hours) Vital Signs Temp Pulse Resp BP Pulse Ox 04/28/19 04:00 37.1 C 74 20 124/75 96 04/28/19 03:00 71 29 H 97/66 L 96 04/28/19 02:00 74 20 128/81 93 04/28/19 01:00 75 19 117/76 96 04/28/19 00:00 37.3 C 74 24 123/63 94 04/27/19 23:00 70 32 H 101/62 96 04/27/19 22:00 73 24 111/69 94 04/27/19 21:00 61 23 148/80 H 97 PG Care Time/CCT Total # of Minutes Spent Total Time Spent with Patient: Total time spent is greater than 50% in coordination of care (as documented) at patient's floor/unit and/or counseling patient:
[2019-04-28] MEDS: METOPROLOL TARTRATE 25 MG TAB PO SCH ×2 (08:54→21:24)
--- NOTE | 2019-04-28 11:39 | Cardiology Progress Note ---
Date of Service April 28, 2019 Assessment & Plan (1) STEMI (ST elevation myocardial infarction): (2) S/P hysterectomy with oophorectomy: (3) PVD (peripheral vascular disease): (4) AAA (abdominal aortic aneurysm): Patient may be transferred to progressive care unit today. Continue current medications including dual antiplatelet therapy, statin, and low-dose beta-marcello. Continue telemetry monitoring at this time. Subjective Patient seen and examined at the bedside. Feeling better today. Blood pressure improved. No bradycardia overnight. Occasional PVCs as well as periods of ventricular bigeminy recorded on telemetry. No sustained ventricular tachycardia. Tolerating diet. Abdominal soreness unchanged. No edema, orthopnea, or PND. Offers no other concerns/complaints at this time. Review of Systems Review of Systems: All systems reviewed & are unremarkable except as noted in HPI & below Physical Exam Physical Exam: General: NAD, AAO x3, well nourished. HEENT: Normocephalic. Atraumatic. Conjunctiva pink, no scleral icterus. Neck: No carotid bruits, the carotid upstrokes are brisk. No JVD. No HJR Heart: Regular normal S-1 and S-2 no S-3 or S-4 gallop. No murmurs or rub appreciated. PMI is not displaced. No RV heave. Lungs: Clear bilateral without rales , rhonchi, or wheeze. Abdomen: Soft, diffusely tender, no drainage. Surgical wounds clean, dry, intact. No abdominal bruits. Extremities: No clubbing, cyanosis, or edema. Pulses: radial=2/4, Dorsalis pedis =2/4, posterior tibial=2/4. Neuro: Cranial nerves grossly intact. No focal motor deficit. Results & Data Vital Signs (Past 12 Hours) Vital Signs Temp Pulse Resp BP Pulse Ox 04/28/19 04:00 37.1 C 74 20 124/75 96 04/28/19 03:00 71 29 H 97/66 L 96 04/28/19 02:00 74 20 128/81 93 04/28/19 01:00 75 19 117/76 96 04/28/19 00:00 37.3 C 74 24 123/63 94
--- NOTE | 2019-04-28 20:36 | Hospitalist Progress Note ---
Date of Service April 28, 2019 Assessment & Plan (1) STEMI (ST elevation myocardial infarction): 58 y/o F with a PMH of AAA, PVD s/p left SFA stenting in 2013, tobacco use disorder, dyslipidemia who is POD#4 s/p robotic total laparoscopic hysterectomy, left salpingectomy, extensive lysis of adhesions who developed postoperative chest pain and was found to have an inferior wall STEMI. -Post op shoulder pain migrated to central 10/10 chest pain with associated nausea -Patient with significant family history of premature CAD, lifelong smoker -EKG revealed acute ST elevations in inferior leads. Initial troponin elevated at 2.8. CXR without acute abnormalities -pt underwent cardiac cath, now s/p PCI of distal RCA w/2 overlapping bare-metal stents, on brillinta and ASA -plan to uptitrate beta-marcello, start ACEi as BP permits -pt hypotensive after CO, received 3L of IVF,was then started on dobutamine, IVF and dobutamine d/c'ed 2 days ago -BP improved and pt w/o bradycardia overnight, started on metoprolol 12.5 mg BID (04/28) -Patient is hemodynam. stable for downgrade to telemetry Echo: LV normal in size, severe inferior wall hypokinesis, severe septal hypokinesis, EF 50 to 55%, RV systolic function normal, LA and RA size normal, no significant valvular pathology. (2) S/P hysterectomy with oophorectomy: POD#4 s/p robotic total laparoscopic hysterectomy, left salpingectomy, extensive lysis of adhesions by Dr. Orozco -Mgmt per obgyn -abdomen soft, only mildly distended, surg. sites w/ ecchymosis but no drainage or incr. edema -pt has BMs, tolerates PO intake well -participates w/ PT -Ramos placed, plan for 7-10 days, clear urine and good UOP Anemia, normocytic Hgb 11.6,secondary to intraop. blood loss, and dilutional will cont. to monitor, Hgb goal>8 Anxiety/Depression - at home on effexor, now held d/t prolonged QTc - pt appears much less anxious, will cont. to closely monitor Constipation- resolved - pt is passing flatus and having light BMs (3) AAA (abdominal aortic aneurysm): Follows with Dr. Acosta -diameter increased from 3.5 cm to 4 cm in 1 year - Abdominal aortic duplex report 12/2018: There is evidence of a 4.0 cm AAA. Color Doppler imaging demonstrates flow consistent with a patent lumen at and distal to the aortic aneurysm. - pt hypotensive after CO, once hemodyn. stable, close monitoring of BP to prevent hypertension (4) PVD (peripheral vascular disease): Peripheral vascular disease with hx of left SFA stenting 05/2014 with angioplasty for restenosis in 2014 (while living in [place], [place]) - currently on ASA and Brillinta s/p stents in RCA (as above) Dispo: Downgrade from ICU to telemetry Code status: FULL PCP: Misha Acosta Subjective No acute events overnight. Patient denies any fevers, chills, chest pain, shortness of breath, nausea, vomiting. She is able to walk around ICU unit with the PT without much difficulty. Review of Systems Review of Systems: At least ten systems reviewed and negative except as noted in the HPI. Respiratory: + cough (on deep inspiration); no dyspnea Gastrointestinal: + abdominal pain (post-surg. ) Physical Exam Constitutional: well developed and well nourished; no acute distress Eyes: PERRL, conjunctivae normal, anicteric sclerae ENMT: external ear and nose normal, oropharynx normal Neck: supple Respiratory: normal respiratory effort, lungs clear to auscultation Cardiovascular: RRR, no murmur, no edema Vessels: normal peripheral pulses Chest (Breasts): normal inspection/palpation of breasts Gastrointestinal (Abdomen): Inspection/Auscultation: normal bowel sounds; + abdomen abnormal to inspection (several post.surg. inc. sites w/ecchymosis - no incr. edema, or drainage) Percussion/Palpation: + abdomen tender (diffusely to palp. / post. surg.) Musculoskeletal: Head/Neck/Chest: normocephalic, head atraumatic and neck supple Extremities: extremities normal to inspection and strength 5/5 throughout Skin: no rashes, warm and dry Neurologic: PERRL, EOMI, accommodation nl, no face palsy, no dysarthria Psychiatric: A+Ox3, euthymic affect Speech: normal rate/rhythm/volume of speech Genitourinary: no CVA tenderness Lymphatic: no lymphedema and no cervical lymphadenopathy Results & Data Vital Signs (Past 12 Hours) Vital Signs Pulse Resp BP Pulse Ox 04/28/19 18:30 67 12 04/28/19 18:15 68 14 04/28/19 18:00 68 14 04/28/19 17:49 71 12 04/28/19 17:15 86 15 04/28/19 17:00 66 11 L 04/28/19 16:45 78 18 04/28/19 16:35 64 12 112/60 04/28/19 16:30 91 H 19 04/28/19 16:15 61 10 L 04/28/19 16:00 66 14 04/28/19 15:45 63 15 04/28/19 15:30 62 16 04/28/19 15:15 63 15 04/28/19 15:00 65 16 04/28/19 14:45 59 L 20 04/28/19 14:30 64 15 04/28/19 14:15 64 19 04/28/19 14:00 63 13 04/28/19 13:45 59 L 21 04/28/19 13:30 67 17 04/28/19 13:20 72 25 H 04/28/19 13:00 64 17 04/28/19 12:45 65 16 04/28/19 12:30 59 L 16 04/28/19 12:15 62 15 04/28/19 12:10 66 19 109/49 L 04/28/19 12:00 62 17 04/28/19 11:45 79 14 04/28/19 11:30 68 14 04/28/19 11:15 61 21 04/28/19 11:00 63 12 04/28/19 10:45 64 19 04/28/19 10:30 62 19 04/28/19 10:15 71 22 04/28/19 10:00 75 23 04/28/19 09:45 75 36 H 04/28/19 09:30 77 17 04/28/19 09:15 73 19 04/28/19 09:00 74 25 H 04/28/19 08:56 83 13 04/28/19 08:19 69 12 106/69 04/28/19 08:17 68 19 184/166 H 100 04/28/19 08:15 75 18 99 Laboratory Results 04/28/19 04/28/19 04/24/19 Range/Units 04:18 04:18 23:26 WBC 7.11 (4.8-10.8) K/uL RBC 3.81 L (4.2-5.4) M/uL Hgb 11.6 L (12.0-16.0) g/dL Hct 34.0 L (37-47) % MCV 89.2 (80-100) fL MCH 30.4 (25-34) pg MCHC 34.1 (32-36) g/dL RDW Std Deviation 43.3 (36.4-46.3) fL RDW Coeff of Karthikeyan 13.3 (11.5-14.5) % Plt Count 168 (130-400) K/uL MPV 10.7 H (7.4-10.4) fL Immature Gran % (Auto) 0.1 % Neut % (Auto) 58.7 % Lymph % (Auto) 28.4 % [place] % (Auto) 7.0 % Eos % (Auto) 5.1 % Baso % (Auto) 0.7 % Immature Gran # (Auto) 0.01 (0.00-0.02) K/uL Neut # (Auto) 4.17 (1.4-6.5) K/uL Lymph # (Auto) 2.02 (1.2-3.4) K/uL [place] # (Auto) 0.50 (0.11-0.59) K/uL Eos # (Auto) 0.36 (0-0.5) K/uL Baso # (Auto) 0.05 (0-0.2) K/uL Activ Coag Time Kaolin 219 H (94-140) SECONDS Sodium 142 (136-145) mmol/L Potassium 3.5 (3.5-5.1) mmol/L Chloride 112 H (98-107) mmol/L Carbon Dioxide 24 (21-32) mmol/L Anion Gap 6.0 (3-11) BUN 11 (7-18) mg/dl Creatinine 0.68 (0.6-1.2) mg/dl Est Cr Clr Drug Dosing 99.8 ml/min Est GFR ( Amer) 110.2 Est GFR (Non-Af Amer) 95.1 BUN/Creatinine Ratio 15.4 (10-20) Glucose 97 (70-99) mg/dl Calcium 8.1 L (8.5-10.1) mg/dl Phosphorus 2.8 (2.5-4.9) mg/dl Magnesium 1.9 (1.8-2.4) mg/dl Medications Administered Current Inpatient Medications Acetaminophen (Tylenol) 650 mg PO Q6H PRN PRN Reason: pain, headache or fever Stop: 05/24/19 16:53 Aspirin (Ecotrin Ectab) 81 mg PO QPM NATHANIEL Stop: 05/24/19 20:59 Last Admin: 04/27/19 21:04 Dose: 81 mg Documented by: Atorvastatin Calcium (Lipitor) 40 mg PO PM NATHANIEL Stop: 05/24/19 20:59 Last Admin: 04/27/19 21:04 Dose: 40 mg Documented by: Bisacodyl (Dulcolax) 10 mg IN DAILY PRN PRN Reason: Constipation or flatulance Stop: 05/24/19 16:53 Bisacodyl (Dulcolax) 10 mg IN Q12 PRN PRN Reason: Constipation Stop: 05/26/19 08:50 Last Admin: 04/26/19 16:22 Dose: 10 mg Documented by: Carisoprodol (Soma) 350 mg PO QPM NATHANIEL Stop: 05/24/19 20:59 Last Admin: 04/27/19 21:04 Dose: 350 mg Documented by: Docusate Sodium (Colace) 100 mg PO BID NATHANIEL Stop: 05/24/19 20:59 Last Admin: 04/28/19 08:11 Dose: 100 mg Documented by: Ezetimibe (Zetia) 10 mg PO QPM NATHANIEL Stop: 05/24/19 20:59 Last Admin: 04/27/19 21:04 Dose: 10 mg Documented by: Enoxaparin Sodium (Lovenox) 40 mg SQ QAM NATHANIEL Stop: 05/27/19 10:59 Last Admin: 04/28/19 08:05 Dose: 40 mg Documented by: Fluticasone Propionate (Flonase) 1 sprays NA DAILY NATHANIEL Stop: 05/25/19 08:59 Last Admin: 04/28/19 08:06 Dose: 1 sprays Documented by: Levothyroxine Sodium (Synthroid) 75 mcg PO QPM NATHANIEL Stop: 05/24/19 20:59 Last Admin: 04/27/19 21:04 Dose: 75 mcg Documented by: Magnesium Hydroxide (Milk Of Magnesia) 30 ml PO Q6H PRN PRN Reason: Constipation Stop: 05/24/19 16:53 Magnesium Oxide (Mag-Ox) 400 mg PO BID NATHANIEL Stop: 04/29/19 08:59 Last Admin: 04/28/19 08:15 Dose: 400 mg Documented by: Metoprolol Tartrate (Lopressor) 12.5 mg PO BID NATHANIEL Stop: 05/28/19 08:59 Last Admin: 04/28/19 08:54 Dose: 12.5 mg Documented by: Oxycodone/Acetaminophen (Percocet 5mg/325mg) 1 tab PO Q4H PRN PRN Reason: Pain Scale 1,2,3,4,5 Stop: 05/08/19 16:53 Last Admin: 04/28/19 12:13 Dose: 1 tab Documented by: Oxycodone/Acetaminophen (Percocet 5mg/325mg) 2 tab PO Q4H PRN PRN Reason: Pain Scale 6,7,8,9,10 Stop: 05/08/19 16:53 Simethicone (Mylicon) 80 mg PO TID PRN PRN Reason: Gas Stop: 05/24/19 16:53 Last Admin: 04/28/19 03:34 Dose: 80 mg Documented by: Ticagrelor (Brilinta) 90 mg PO BID [facility] Stop: 05/25/19 11:59 Last Admin: 04/28/19 08:05 Dose: 90 mg Documented by: Venlafaxine HCl (Effexor) 37.5 mg PO QPM NATHANIEL Stop: 05/24/19 20:59 Last Admin: 04/26/19 21:08 Dose: 37.5 mg Documented by:
[2019-04-28] MEDS: ASPIRIN 81 MG ECTAB PO SCH (21:24)
[2019-04-28] MEDS: VENLAFAXINE HCL 37.5 MG TAB PO SCH (21:24)
[2019-04-28] MEDS: ATORVASTATIN 40 MG TAB PO SCH (21:24)
[2019-04-28] MEDS: CARISOPRODOL 350 MG TABLET PO SCH (21:25)
[2019-04-28] MEDS: LEVOTHYROXINE SODIUM 75 MCG TABLET PO SCH (21:25)
[2019-04-28] MEDS: EZETIMIBE 10 MG TABLET PO SCH (21:26)
--- NOTE | 2019-04-29 07:39 | Surgery Progress Note ---
Date of Service April 29, 2019 Assessment & Plan (1) Intra-abdominal adhesions: Postoperative day #5 status post lysis of extensive adhesions from general surgery portion No evidence of bowel injury Her stenosis is good No evidence of peritonitis Recent AR as per cardiology bladder repair as per urology Subjective Postoperative day #5, status post extensive lysis of adhesions, hysterectomy, repair of bladder injury Tolerating regular diet Passing flatus Had one bowel discomfort is decreasing in intensity No nausea or vomiting Physical Exam Gastrointestinal (Abdomen): Inspection/Auscultation: + abdominal surgical incision (All are clean, dry and intact); abdomen not distended Percussion/Palpation: + abdomen tender (Much less today) and abdomen soft Results & Data Vital Signs (Past 12 Hours) Vital Signs Temp Pulse Resp BP Pulse Ox 04/29/19 04:58 37.2 C 61 15 103/65 93 04/29/19 03:28 54 L 13 109/67 92 04/29/19 00:47 37.0 C 58 L 16 109/67 91 04/28/19 20:20 37.7 C H 67 13 135/70 92
--- NOTE | 2019-04-29 08:09 | Gynecologic Progress Note ---
Date of Service April 29, 2019 Assessment & Plan (1) Status post bladder repair: Continue lizama management. Has f/u per urology (2) S/P hysterectomy with oophorectomy: Doing very well from a postoperative standpoint. OK for d/c from a contract lead standpoint and f/u already scheduled. (3) STEMI (ST elevation myocardial infarction): Management per cards and ICU team. d/c based on when she can be d/c from their perspective. Subjective Patient seen down in icu. Was resting comfortably. Patient notes she has minimal pain. no cp/sob/n/v. INtermittently wearing scds. Notes lizama intact. Notes continues to have flatus and BM. tolerating a regular diet. Has been ambulating in the plascencia with a walker and sitting in a chair in the room. She had no acute events overnight. Notes she is overall feeling well. Denies any vaginal bleeding. Review of Systems Review of Systems: All systems reviewed & are unremarkable except as noted in HPI & below Cardiovascular: as per Subjective / HPI Physical Exam Constitutional: WD/WN, vitals as above Cardiovascular: Extremities: no calf tenderness, no pedal edema and no edema Gastrointestinal (Abdomen): abd soft, appropriatly tender, nd, brusing around incision sites. Results & Data Vital Signs (Past 12 Hours) Vital Signs Temp Pulse Resp BP Pulse Ox 04/29/19 04:58 37.2 C 61 15 103/65 93 04/29/19 03:28 54 L 13 109/67 92 04/29/19 00:47 37.0 C 58 L 16 109/67 91 04/28/19 20:20 37.7 C H 67 13 135/70 92 PG Care Time/CCT Total # of Minutes Spent Total Time Spent with Patient: Total time spent is greater than 50% in coordination of care (as documented) at patient's floor/unit and/or counseling patient:
[2019-04-29] MEDS: OXYCODONE/ACETAMINOPHEN 5mg/325mg TAB PO PRN ×2 (08:11→21:37)
[2019-04-29] MEDS: METOPROLOL TARTRATE 25 MG TAB PO SCH ×2 (08:13→21:39)
[2019-04-29] MEDS: ENOXAPARIN INJ 40 MG/0.4 ML SYR SQ SCH (08:14)
[2019-04-29] MEDS: TICAGRELOR 90 MG TAB PO SCH ×2 (08:14→21:39)
[2019-04-29] MEDS: FLUTICASONE PROPIONATE NA SPR 16 GM BTL SCH (08:14)
[2019-04-29] MEDS: DOCUSATE SODIUM 100 MG CAP PO SCH ×2 (08:16→21:54)
--- NOTE | 2019-04-29 10:57 | Hospitalist Progress Note ---
Date of Service April 29, 2019 Assessment & Plan (1) S/P hysterectomy with oophorectomy: POD # 5. Post op care per [employer] Estate [employer]. Increase activity as tolerated. (2) Status post bladder repair: Ramos catheter management per [employer] Estate Salesperson and Urology. (3) STEMI (ST elevation myocardial infarction): Suffered postop ST elevation IA 04/24. Emergent cardiac catheterization demonstrated 100% occlusion of distal RCA as w ell as a 50 to 60% focal proximal stenosis of OM1. PCI of mid to distal RCA with 2 overlapping bare-metal stents performed. Received dobutamine for hypotension which was weaned and discontinued. Echo performed on 04/25 demonstrated severe hypokinesis of inferior and septal [place] with overall LVEF 50-55%. Blood pressures remain low at times. Patient's baseline systolic blood pressure in the 90s and hypotension has been asymptomatic. Continue dual antiplatelet therapy with aspirin and ticagrelor, metoprolol, atorvastatin. Increase activity as tolerated. (4) AAA (abdominal aortic aneurysm): Abdominal ultrasound December 2018 demonstrated 4.0 cm abdominal aortic aneurysm. Continue to follow. (5) DVT prophylaxis: SQ enoxaparin. Ambulate. (6) Discharge planning issues: Anticipated discharge to home. Family Medicine follow-up with Dr. Lisbet Acosta. Cardiology follow-up with Dr. Hebert Acosta. (7) Encounter for consultation: Thank you for this consultation. We will follow the patient with you during their hospital stay. My cell # is [phone]. You can reach a member of the [facility] Medicine Team 21/01 via pager @ [phone]. Subjective Recheck for multiple problems. Patient seen in their room around 1030. Doing better. Starting to ambulate. No chest pain or shortness of breath. No cough. No nausea or vomiting. No bowel movement for a few days. Feels bloated. Still has Ramos catheter which is to remain in place for several more days. Review of Systems: As noted above. Physical Exam Constitutional: no acute distress Respiratory: no respiratory distress Auscultation: lungs clear to ausculta tion bilaterally Cardiovascular: Rate/Rhythm: regular rate and regular rhythm Heart Sounds: no gallop, no murmur and no cardiac rub Vessels: no JVD Extremities: no calf tenderness and no edema Gastrointestinal (Abdomen): Inspection/Auscultation: + abdomen distended; + abnormal bowel sounds (quiet) Percussion/Palpation: abdomen soft Skin: no rashes, warm and dry Psychiatric: Orientation: alert and oriented x 3 Genitourinary: Ramos cath Results & Data Vital Signs (Past 12 Hours) Vital Signs Temp Pulse Resp BP Pulse Ox 04/29/19 07:58 37.2 C 74 15 99/61 L 97 04/29/19 04:58 37.2 C 61 15 103/65 93 04/29/19 03:28 54 L 13 109/67 92 04/29/19 00:47 37.0 C 58 L 16 109/67 91 Laboratory Results 04/28/19 04:18 04/28/19 04:18
--- NOTE | 2019-04-29 11:22 | Cardiology Progress Note ---
Date of Service April 29, 2019 Assessment & Plan (1) STEMI (ST elevation myocardial infarction): (2) S/P hysterectomy with oophorectomy: (3) PVD (peripheral vascular disease): (4) AAA (abdominal aortic aneurysm): Continue current medications including dual antiplatelet therapy, statin, and low-dose beta-marcello. Repeat resting 2D transthoracic echocardiogram 6 to 12 weeks post discharge. Outpatient cardiology follow-up in 2 weeks. Subjective Patient seen and examined the bedside. Feeling well from a cardiovascular perspective today. Rare ventricular ectopy on telemetry overnight. No recurrent bradycardia. Patient denies chest tightness or heaviness. No unusual shortness of breath. Abdominal discomfort improving. Tolerating current medications. Review of Systems Review of Systems: All systems reviewed & are unremarkable except as noted in HPI & below Physical Exam Physical Exam: General: NAD, AAO x3, well nourished. HEENT: Normocephalic. Atraumatic. Conjunctiva pink, no scleral icterus. Neck: No carotid bruits, the carotid upstrokes are brisk. No JVD. No HJR Heart: Regular normal S-1 and S-2 no S-3 or S-4 gallop. No murmurs or rub appreciated. PMI is not displaced. No RV heave. Lungs: Clear bilateral without rales , rhonchi, or wheeze. Abdomen: Soft, diffusely tender, no drainage. Surgical wounds clean, dry, intact. No abdominal bruits. Extremities: No clubbing, cyanosis, or edema. Pulses: radial=2/4, Dorsalis pedis =2/4, posterior tibial=2/4. Neuro: Cranial nerves grossly intact. No focal motor deficit. Results & Data Vital Signs (Past 12 Hours) Vital Signs Temp Pulse Resp BP Pulse Ox 04/29/19 07:58 37.2 C 74 15 99/61 L 97 04/29/19 04:58 37.2 C 61 15 103/65 93 04/29/19 03:28 54 L 13 109/67 92 04/29/19 00:47 37.0 C 58 L 16 109/67 91
--- NOTE | 2019-04-29 15:24 | Urology Progress Note ---
Date of Service April 29, 2019 Assessment & Plan (1) Status post bladder repair: 58 YO F POD#5 s/p robotic hysterectomy, extensive lysis of adhesions, cystotomy repair. Ramos not bothersome. Patient will need cystogram POD# 7-10. Will coordinate. Will continue to intermittently follow. Subjective 58 YO F POD#5 s/p robotic hysterectomy, extensive lysis of adhesions, cystotomy repair. Patient reports feeling well today. No pain. Ramos is not bothersome. Appears to be doing well from a surgical standpoint. Remains in ICU for management of her other health issues. Review of Systems Review of Systems: Per HPI. Physical Exam Physical Exam: NAD. Resp effort normal. No JVD. Abd nondistended. : Ramos in place, patent, draining clear yellow urine. A&Ox3, appropriate affect. Results & Data Vital Signs (Past 12 Hours) Vital Signs Temp Pulse Resp BP Pulse Ox 04/29/19 13:15 70 100/63 04/29/19 11:40 36.8 C 64 18 83/46 L 98 04/29/19 07:58 37.2 C 74 15 99/61 L 97 04/29/19 04:58 37.2 C 61 15 103/65 93 04/29/19 03:28 54 L 13 109/67 92 PG Care Time/CCT Total # of Minutes Spent Total Time Spent with Patient: Total time spent is greater than 50% in coordination of care (as documented) at patient's floor/unit and/or counseling patient:
[2019-04-29] MEDS: LEVOTHYROXINE SODIUM 75 MCG TABLET PO SCH (21:39)
[2019-04-29] MEDS: ATORVASTATIN 40 MG TAB PO SCH (21:39)
[2019-04-29] MEDS: EZETIMIBE 10 MG TABLET PO SCH (21:39)
[2019-04-29] MEDS: ASPIRIN 81 MG ECTAB PO SCH (21:40)
[2019-04-29] MEDS: VENLAFAXINE HCL 37.5 MG TAB PO SCH (21:40)
[2019-04-29] MEDS: CARISOPRODOL 350 MG TABLET PO SCH (21:54)
[2019-04-30 07:09] LABS: Creatinine Clr Calc Pharmacy 88.1 ml/min; Est GFR (African American) 107.3; Est GFR (Non-African American) 92.6
--- NOTE | 2019-04-30 07:37 | Surgery Progress Note ---
Date of Service April 30, 2019 Assessment & Plan (1) Intra-abdominal adhesions: Postoperative day #6 status post extensive lysis of adhesions Doing well Peristalsis good No fever Status post hysterectomy and repair of bladder injury as per gynecology and urology Status post [place] as per cardiology Subjective Postoperative day #6 status post lysis of extensive adhesions with hysterectomy and repair of bladder injury Passing flatus Had bowel movement yesterday Tolerating regular diet Denies nausea and vomiting Abdominal discomfort is unchanged Physical Exam Gastrointestinal (Abdomen): Inspection/Auscultation: + abdominal surgical incision (Clean, dry and intact with ecchymosis); abdomen not distended Percussion/Palpation: + abdomen tender (Mild incisional) and abdomen soft Results & Data Vital Signs (Past 12 Hours) Vital Signs Temp Pulse Pulse Resp BP Pulse Ox 04/30/19 03:09 37.3 C 62 16 99/69 L 97 04/30/19 00:00 72 04/29/19 23:28 37.5 C 72 18 91/47 L 94
--- NOTE | 2019-04-30 07:50 | Gynecologic Progress Note ---
Date of Service POD#6 Patient doing well. Ambulating. Ramos draining. Bowels functioning normally. No ext pain. Pain well controlled April 30, 2019 Assessment & Plan (1) S/P hysterectomy with oophorectomy: Meets discharge criteria from a surgical point of view. I will send percocet to her pharmacy. Ramos follow up per urology Cardiac follow per team. Physical Exam Constitutional: WD/WN, vitals as above Respiratory: normal respiratory effort, lungs clear to auscultation Gastrointestinal (Abdomen): normal bowel sounds, soft, nontender, no h epatosplenomegaly (ecchymosis over incision sites, no active bleeding) no ext tenderness Results & Data Vital Signs (Past 12 Hours) Vital Signs Temp Pulse Pulse Resp BP Pulse Ox 04/30/19 03:09 99.1 F 62 16 99/69 L 97 04/30/19 00:00 72 04/29/19 23:28 99.5 F 72 18 91/47 L 94 PG Care Time/CCT Total # of Minutes Spent Total Time Spent with Patient: Total time spent is greater than 50% in coordination of care (as documented) at patient's floor/unit and/or counseling patient:
[2019-04-30] MEDS: ENOXAPARIN INJ 40 MG/0.4 ML SYR SQ SCH (08:19)
[2019-04-30] MEDS: TICAGRELOR 90 MG TAB PO SCH (08:20)
[2019-04-30] MEDS: FLUTICASONE PROPIONATE NA SPR 16 GM BTL SCH (08:21)
[2019-04-30] MEDS: METOPROLOL TARTRATE 25 MG TAB PO SCH (08:22)
[2019-04-30] MEDS: DOCUSATE SODIUM 100 MG CAP PO SCH (08:25)
--- NOTE | 2019-04-30 09:41 | Cardiology Progress Note ---
Date of Service April 30, 2019 Assessment & Plan (1) STEMI (ST elevation myocardial infarction): (2) S/P hysterectomy with oophorectomy: (3) PVD (peripheral vascular disease): (4) AAA (abdominal aortic aneurysm): Continue current medications including dual antiplatelet therapy, statin, and low-dose beta-marcello. Encourage hydration. Repeat resting 2D transthoracic echocardiogram 6 to 12 weeks post discharge. Outpatient cardiology follow-up in 2 weeks. Subjective Patient seen and examined the bedside. Asymptomatic hypotension unchanged. Infrequent ventricular ectopy on telemetry. No recurrent bradycardia. Patient denies lightheadedness, dizziness, syncope, or near syncope. Appetite is poor. Abdominal discomfort unchanged. Denies chest pain or shortness of breath. Offers no other concerns/complaints at this time. Review of Systems Review of Systems: All systems reviewed & are unremarkable except as noted in HPI & below Physical Exam Physical Exam: General: NAD, AAO x3, well nourished. HEENT: Normocephalic. Atraumatic. Conjunctiva pink, no scleral icterus. Neck: No carotid bruits, the carotid upstrokes are brisk. No JVD. No HJR Heart: Regular normal S-1 and S-2 no S-3 or S-4 gallop. No murmurs or rub appreciated. PMI is not displaced. No RV heave. Lungs: Clear bilateral without rales , rhonchi, or wheeze. Abdomen: Soft, diffusely tender, no drainage. Surgical wounds clean, dry, intact. No abdominal bruits. Extremities: No clubbing, cyanosis, or edema. Pulses: radial=2/4, Dorsalis pedis =2/4, posterior tibial=2/4. Neuro: Cranial nerves grossly intact. No focal motor deficit. Results & Data Vital Signs (Past 12 Hours) Vital Signs Temp Pulse Pulse Pulse Resp BP Pulse Ox 04/30/19 08:19 89/47 L 04/30/19 07:46 37.6 C H 68 20 85/50 L 94 04/30/19 03:09 37.3 C 62 16 99/69 L 97 04/30/19 00:00 72 04/29/19 23:28 37.5 C 72 18 91/47 L 94
--- NOTE | 2019-04-30 10:09 | Hospitalist Progress Note ---
Date of Service April 30, 2019 Assessment & Plan (1) S/P hysterectomy with oophorectomy: POD #6. Post op care per Regulatory Affairs Consultant. Increase activity as tolerated. (2) Status post bladder repair: Ramos catheter management per Regulatory Affairs Consultant and Urology. (3) STEMI (ST elevation myocardial infarction): Suffered postop ST elevation [place] 04/24. Emergent cardiac catheterization demonstrated 100% occlusion of distal RCA as we ll as a 50 to 60% focal proximal stenosis of OM1. PCI of mid to distal RCA with 2 overlapping bare-metal stents performed. Received dobutamine for hypotension which was weaned and discontinued. Echo performed on 04/25 demonstrated severe hypokinesis of inferior and septal [place] with overall LVEF 50-55%. Blood pressures remain low at times. Patient's baseline systolic blood pressure in the 90s and hypotension has been asymptomatic. Continue dual antiplatelet therapy with aspirin and ticagrelor, metoprolol, atorvastatin. Increase activity as tolerated. (4) AAA (abdominal aortic aneurysm): Abdominal ultrasound December 2018 demonstrated 4.0 cm abdominal aortic aneurysm. Has clinic appointment with Vascular Surgery for follow-up. (5) DVT prophylaxis: SQ enoxaparin. Ambulate. (6) Discharge planning issues: OK for discharge to home from medical perspective. Family Medicine follow-up with Dr. Lisbet Acosta. Cardiology follow-up with Dr. Hebert Acosta. (7) Encounter for consultation: Thank you for this consultation. We will follow the patient with you during their hospital stay. My cell # is [phone]. You can reach a member of the [facility] Medicine Team 21/01 via pager @ [phone]. Subjective Recheck for multiple problems. Patient seen in their room around 0950. Doing well. BP low at times, but asymptomatic. Ambulating. No chest pain or shortness of breath. No cough. No nausea or vomiting. Moved bowels yesterday. Less bloated. Still has Ramos catheter which is to remain in place for several more days per Regulatory Affairs Consultant. Review of Systems: As noted above. Physical Exam Constitutional: no acute distress Respiratory: no respiratory distress Auscultation: lungs clear to auscultation bilaterally Cardiovascular: Rate/Rhythm: regular rate and regular rhythm Heart Sounds: no gallop, no murmur and no cardiac rub Vessels: no JVD Extremities: no calf tenderness and no edema Gastrointestinal (Abdomen): Inspection/Auscultation: + abdomen distended and normal bowel sounds (quiet) Percussion/Palpation: abdomen soft surgical incisions without erythema or drainage Skin: no rashes, warm and dry Psychiatric: Orientation: alert and oriented x 3 Results & Data Vital Signs (Past 12 Hours) Vital Signs Temp Pulse Pulse Pulse Resp BP Pulse Ox 04/30/19 08:19 89/47 L 04/30/19 07:46 37.6 C H 68 20 85/50 L 94 04/30/19 03:09 37.3 C 62 16 99/69 L 97 04/30/19 00:00 72 04/29/19 23:28 37.5 C 72 18 91/47 L 94
[2019-04-30] MEDS: OXYCODONE/ACETAMINOPHEN 5mg/325mg TAB PO PRN (14:55)
--- NOTE | 2019-05-02 11:51 | Discharge Summary ---
Date of Service May 02, 2019 Patient had a very challenging hysterectomy, laparoscopic Apr 25 due to severe adhesions Her course was complicated by an MT in the evening after surgery with a subsequent invasive cardiology procedure early the next am. By POD#6 she was ambulating well, tolerating an oral diet, no ext pain. Passing flatus and having BMs, no PV bleeding. Urine was draining clear from liz[place]. Admission Exam (Per Admitting) Constitutional WD/WN, vitals as above well developed Respiratory normal respiratory effort, lungs clear to auscultation Gastrointestinal (Abdomen) normal bowel sounds, soft, nontender, no hepatosplenomegaly (ecchymosis over incision sites, no active bleeding) Inspection/Auscultation: abdomen normal to inspection and normal bowel sounds Discharge Data Consultations 04/24/19 15:07 Consult Urology Stat 04/24/19 16:54 Consult Hospitalist Routine 04/25/19 00:30 Consult Cardiac Rehabilitation Routine 04/25/19 00:43 Consult Case Management - Discharge Planning Routine 04/25/19 00:55 Consult Case Management - Discharge Planning Routine Consult Generator Assembler Routine 04/26/19 08:58 Consult Cardiology Routine 04/26/19 15:42 Consult Urology Routine 04/26/19 15:48 Consult General Surgery Routine Procedures Performed Operation Date: 04/24/19 09:20 Actual Procedures p Robotic Total Laparoscopic Hysterectomy, Left Salpingectomy, Extensive Lysis of Adhesions, Robotic laparoscopic assisted repair of Iatrogenic vesicotomy - Louise Orozco MD, FACOG s Cystoscopy - Louise Orozco MD, FACOG Operation Date: 04/24/19 10:35 Actual Procedures p Aspiration/PCI w/BMS for Stemi - Charles Win MD p Cath, Left with Cors and Vent - Charles Win MD s Cineradiography w/Routine Exam - Charles Win MD Hospital Course (1) S/P hysterectomy with oophorectomy: Meets discharge criteria from a surgical point of view. I will send percocet to her pharmacy. 1. Bladder cystotomy, keep in [place] follow up per urology 2. MT. Cardiac follow per team. 3. I will see patient in follow up from surgical point of view within 2 weeks. (2) Status post bladder repair: (3) Intra-abdominal adhesions: (4) STEMI (ST elevation myocardial infarction): (5) HSIL (high grade squamous intraepithelial lesion) on Pap smear of cervix:
--- NOTE | 2019-05-04 12:56 | Coding Query ---
CODING QUERY To promote full compliance with coding requirements relating to patient care, provider participation is requested in all cases of lining feller blindstitch uncertainty. Please assist us with the question(s) below: Coding Question(s): There is STEMI (ST elevation myocardial infarction) documented in the record with documentation of, "Suffered postop ST elevation [place] 04/24" on Progress Note 04/30/19. Please clarify below, in your clinical opinion, regarding the [place]. ( X) [place] was likely a Postoperative Complication ( ) [place] was NOT likely a Postoperative Complication ( ) Other: Please Specify Physician's Response(s): Thank you Zhane Pang Principal Diagnosis: "that condition established after study, to be chiefly responsible for occasioning the admission of the patient to the hospital for care." Co-Existing Principal Diagnosis: "when two or more diagnoses equally meet the criteria for principal diagnosis as determined by the circumstances of admission, diagnostic work up, and/or therapy provided, and the Alphabetic Index, Tabular List, or another coding guideline does not provide sequencing direction, any one of the diagnoses may be sequenced first." "When the physician has documented what appears to be a current diagnosis in the body of the record, but has not included the diagnosis in the final diagnostic statement, the physician should be asked whether the diagnosis should be added." (Source Coding [facility] 2 QTR90. p3-4) JEAN
== END 2019-04-30 15:41 | disposition home health service (06) | DRG 246 ==
LOC: ASU 07:53 → 4N 07:53 → 1E 04-25 00:20 → 2E 04-29 08:54